=== PATIENT | male | born 1980 | race Caucasian/White ===

== ENCOUNTER 2017-01-21 23:59 | Observation (INO) | payer OTHER ==
[2017-01-22] MEDS ORDERED: Sodium Chloride 0.9% 1000 ML 1,000 ML IV STA ×2 (00:14→01:04)
[2017-01-22] MEDS ORDERED: Phenergan 25 MG INJ IV ONE (00:14)
[2017-01-22] MEDS ORDERED: Hydromorphone 1 mg/ml Ampule IV ONE (00:14)
--- NOTE | 2017-01-22 00:20 | ERPHSYRPT ---
- History of Present Illness Time Seen by Provider: 01/22/17 00:10 Historian: patient Exam Limitations: no limitations Patient Subjective Stated Complaint: pt states he has been having cramping abd pain since 5pm with vomiting and diarrhea since 7pm. states his pain radiates to both sides of his back Triage Nursing Assessment: pt alert and oriented, answers questions approp. pt ambulatory with steady gait noted. respirations nonlabored, denies sob. abd distended. bowel sounds present. Physician History: FOR THE PAST 5 HOURS PT HAS HAD DIFFUSE ABDOMINAL CRAMPING, VOMITING X5 WITHOUT BLOOD, BROWN WATERY DIARRHEA X10, CHILLS AND DIAPHORESIS. PT DENIES CHEST PAIN, SHORTNESS OF AIR, FEVER. Allergies/Adverse Reactions: No Known Drug Allergies Allergy (Unverified 01/22/17 00:22) Home Medications: No Reportable Medications [No Reported Medications] 01/22/17 [History] Hx Tetanus, Diphtheria Vaccination/Date Given: Yes Hx Influenza Vaccination/Date Given: No Hx Pneumococcal Vaccination/Date Given: No Immunizations Up to Date: Yes - Review of Systems Constitutional: Chills, No Fever Respiratory: No Dyspnea Cardiac: No Chest Pain Abdominal/Gastrointestinal: Abdominal Pain, Vomiting, Diarrhea Endocrine: Excessive Sweating All Other Systems: Reviewed and Negative - Past Medical History Pertinent Past Medical History: No - Past Surgical History Past Surgical History: Yes Other Surgical History: growth removed from big toe,. skin graft - Social History Smoking Status: Former smoker Exposure to second hand smoke: No Patient Lives Alone: No - Nursing Vital Signs Nursing Vital Signs: Initial Vital Signs Temperature 97.7 F 01/22/17 00:02 Pulse Rate 90 01/22/17 00:02 Respiratory Rate 18 01/22/17 00:02 Blood Pressure 185/112 01/22/17 00:02 O2 Sat by Pulse Oximetry 97 01/22/17 00:02 Pain Scale Pain Intensity 5 - Physical Exam General Appearance: alert Eye Exam: PERRL/EOMI Ears, Nose, Throat Exam: TMs normal, dry mucous membranes Neck Exam: normal inspection Respiratory Exam: lungs clear Cardiovascular Exam: normal heart sounds Gastrointestinal/Abdomen Exam: normal bowel sounds, tenderness (MILD DIFFUSE ABDOMINAL TENDERNESS) Back Exam: normal range of motion Extremity Exam: normal inspection, No pedal edema Neurologic Exam: alert, cooperative Skin Exam: abrasion (HEALING ABRASION TO MID ANTERIOR ASPECT OF LEFT LEG.) SpO2 Interpretation: normal SpO2: 97 Oxygen Delivery: Room Air - Course Nursing assessment & vital signs reviewed: Yes - CT Exams Abdomen/Pelvis CT Interpretation: Tele-radiologist Report (FINDINGS CONSISTENT WITH COLONIC ILEUS.) Ordered Tests: Active Orders 24 hr Category Date Time Status Clean Catch Urine Specimen STAT Care 01/22/17 00:14 Active IV Insertion STAT Care 01/22/17 00:14 Active ABDOMEN AND PELVIS W/0 CONTRAS [CT] Stat Exams 01/22/17 00:15 Taken AMYLASE Stat Lab 01/22/17 00:15 Completed CBC W DIFF Stat Lab 01/22/17 00:15 Completed CMP Stat Lab 01/22/17 00:15 Completed LIPASE Stat Lab 01/22/17 00:15 Completed MAG [MAGNESIUM] Stat Lab 01/22/17 00:15 Completed Manual Differential NC Stat Lab 01/22/17 00:15 Completed UA W/ MICROSCOPIC Stat Lab 01/22/17 02:00 Completed Urine Triage Profile Stat Lab 01/22/17 02:00 Completed Medication Summary Discontinued Medications Generic Name Dose Route Start Last Admin Trade Name Freq PRN Reason Stop Dose Admin Hydromorphone HCl 1 mg 01/22/17 00:14 01/22/17 00:28 Hydromorphone 1 Mg/Ml Ampule IV 01/22/17 00:15 1 mg STAT ONE Administration Hydromorphone HCl Confirm 01/22/17 00:24 Hydromorphone 1 Mg/Ml Ampule Administered 01/22/17 00:25 Dose 1 mg .ROUTE .STK-MED ONE Sodium Chloride 1,000 mls @ 999 mls/hr 01/22/17 00:14 01/22/17 00:28 Sodium Chloride 0.9% 1000 Ml IV 01/22/17 01:14 999 mls/hr .Q1H1M STA Administration Sodium Chloride Confirm 01/22/17 00:24 Sodium Chloride 0.9% 1000 Ml Administered 01/22/17 00:25 Dose 1,000 mls @ ud .ROUTE .STK-MED ONE Sodium Chloride 1,000 mls @ 999 mls/hr 01/22/17 01:04 01/22/17 01:31 Sodium Chloride 0.9% 1000 Ml IV 01/22/17 02:04 999 mls/hr .Q1H1M STA Administration Magnesium Sulfate/Dextrose 100 mls @ 200 mls/hr 01/22/17 01:35 01/22/17 01:48 Magnesium 1 Gm / 100 Ml D5w IV 01/22/17 02:04 200 mls/hr STAT ONE Administration Magnesium Sulfate/Dextrose Confirm 01/22/17 01:48 Magnesium 1 Gm / 100 Ml D5w Administered 01/22/17 01:49 Dose 100 mls @ ud IV .STK-MED ONE Nitroglycerin 0.4 mg 01/22/17 02:24 01/22/17 02:27 Nitrostat 0.4 Mg (Ed) SL 01/22/17 02:25 0.4 mg STAT ONE Administration Promethazine HCl 12.5 mg 01/22/17 00:14 01/22/17 00:28 Phenergan 25 Mg Inj IV 01/22/17 00:15 12.5 mg STAT ONE Administration Promethazine HCl Confirm 01/22/17 00:23 Phenergan 25 Mg Inj Administered 01/22/17 00:24 Dose 25 mg .ROUTE .STK-MED ONE Lab/Rad Data: Laboratory Result Diagrams 01/22/17 00:15 01/22/17 00:15 Laboratory Results 01/22/17 01/22/17 01/22/17 Range/Units 02:00 02:00 00:15 WBC (4.0-10.5) K/mm3 RBC (4.1-5.6) M/mm3 Hgb (12.5-18.0) gm/dl Hct (42-50) % MCV (78-100) fl MCH (26-32) pg MCHC (32-36) g/dl RDW (11.5-14.0) % Plt Count (150-450) K/mm3 MPV (6-9.5) fl Segmented Neutrophils (36.-66.) % Lymphocytes (Manual) (24-44) % Monocytes (Manual) (0.0-12.0) % Eosinophils (Manual) (0.00-3.0) % Differential Comment Platelet Estimate (NORMAL) Sodium (136-145) mEq/L Potassium (3.5-5.1) mEq/L Chloride (98-107) mEq/L Carbon Dioxide (21-32) mEq/L Anion Gap (5-15) MEQ/L BUN (9-20) mg/dL Creatinine (0.55-1.30) mg/dl Estimated GFR ML/MIN Glucose (70-110) MG/DL Calcium (8.5-10.1) mg/dL Magnesium 1.7 L (1.8-2.4) mg/dL Total Bilirubin (0.2-1.0) mg/dL AST (15-37) U/L ALT (12-78) U/L Alkaline Phosphatase (46-116) U/L Serum Total Protein (6.4-8.2) gm/dL Albumin (3.4-5.0) g/dL Amylase (25-115) U/L Lipase (73-393) U/L Ur Collection Type CCMS Urine Color YELLOW (YELLOW) Urine Appearance CLEAR (CLEAR) Urine pH 5.0 (5-6) Ur Specific [place] 1.025 (1.005-1.025) Urine Protein TRACE (Negative) Urine Ketones NEGATIVE (NEGATIVE) Urine Blood NEGATIVE (0-5) Giuseppe/ul Urine Nitrite NEGATIVE (NEGATIVE) Urine Bilirubin NEGATIVE (NEGATIVE) Urine Urobilinogen NORMAL (0-1) mg/dL Ur Leukocyte Esterase NEGATIVE (NEGATIVE) Urine Microscopic WBC 5-10 (0-5) /HPF Urine Glucose NEGATIVE (NEGATIVE) mg/dL Urine Opiates Level NEG. (NEGATIVE) Ur Methadone NEG. (NEGATIVE) Urine Barbiturates NEG. (NEGATIVE) Ur Phencyclidine (PCP) NEG. (NEGATIVE) Urine Amphetamine NEG. (NEGATIVE) U Benzodiazepine Level NEG. (NEGATIVE) Urine Cocaine NEG. (NEGATIVE) Urine Marijuana (THC) NEG. (NEGATIVE) Specimen Received 01-22-17 0225 01/22/17 01/22/17 Range/Units 00:15 00:15 WBC 14.4 H (4.0-10.5) K/mm3 RBC 5.49 (4.1-5.6) M/mm3 Hgb 15.4 (12.5-18.0) gm/dl Hct 45.1 (42-50) % MCV 82.1 (78-100) fl MCH 28.1 (26-32) pg MCHC 34.1 (32-36) g/dl RDW 13.7 (11.5-14.0) % Plt Count 261 (150-450) K/mm3 MPV 10.2 H (6-9.5) fl Segmented Neutrophils 86 H (36.-66.) % Lymphocytes (Manual) 11 L (24-44) % Monocytes (Manual) 2 (0.0-12.0) % Eosinophils (Manual) 1 (0.00-3.0) % Differential Comment NORMAL Platelet Estimate NORMAL (NORMAL) Sodium 143 (136-145) mEq/L Potassium 3.9 (3.5-5.1) mEq/L Chloride 105 (98-107) mEq/L Carbon Dioxide 25.1 (21-32) mEq/L Anion Gap 16.3 H (5-15) MEQ/L BUN 12 (9-20) mg/dL Creatinine 0.95 (0.55-1.30) mg/dl Estimated GFR > 60 ML/MIN Glucose 145 H (70-110) MG/DL Calcium 9.2 (8.5-10.1) mg/dL Magnesium (1.8-2.4) mg/dL Total Bilirubin 0.50 (0.2-1.0) mg/dL AST 36 (15-37) U/L ALT 60 (12-78) U/L Alkaline Phosphatase 61 (46-116) U/L Serum Total Protein 8.5 H (6.4-8.2) gm/dL Albumin 4.3 (3.4-5.0) g/dL Amylase 28 (25-115) U/L Lipase 84 (73-393) U/L Ur Collection Type Urine Color (YELLOW) Urine Appearance (CLEAR) Urine pH (5-6) Ur Specific [place] (1.005-1.025) Urine Protein (Negative) Urine Ketones (NEGATIVE) Urine Blood (0-5) Giuseppe/ul Urine Nitrite (NEGATIVE) Urine Bilirubin (NEGATIVE) Urine Urobilinogen (0-1) mg/dL Ur Leukocyte Esterase (NEGATIVE) Urine Microscopic WBC (0-5) /HPF Urine Glucose (NEGATIVE) mg/dL Urine Opiates Level (NEGATIVE) Ur Methadone (NEGATIVE) Urine Barbiturates (NEGATIVE) Ur Phencyclidine (PCP) (NEGATIVE) Urine Amphetamine (NEGATIVE) U Benzodiazepine Level (NEGATIVE) Urine Cocaine (NEGATIVE) Urine Marijuana (THC) (NEGATIVE) Specimen Received - Progress Discussed with : Hunter (0253 - OBS) - Departure Time of Disposition: 03:02 Departure Disposition: Home Clinical Impression: ABDOMINAL PAIN, COLONIC ILEUS, ABRASION OF LEFT LEG Condition: Stable Critical Care Time: No [facility] [Primary Care Provider[facility] -
[2017-01-22] MEDS ORDERED: Phenergan 25 MG INJ ONE (00:23)
[2017-01-22] MEDS ORDERED: Sodium Chloride 0.9% 1000 ML 1,000 ML ONE (00:24)
[2017-01-22] MEDS ORDERED: Hydromorphone 1 mg/ml Ampule ONE (00:24)
[2017-01-22 00:27] LABS: Mean Cell Volume 82.1 fl (78-100); Mean Corpuscular Hemoglobin 28.1 pg (26-32); Mean Platelet Volume 10.2 fl (6-9.5); Platelet Count 261 K/mm3 (150-450); Red Blood Count 5.49 M/mm3 (4.1-5.6); Red Cell Distribution Width 13.7 % (11.5-14.0); White Blood Count 14.4 K/mm3 (4.0-10.5)
[2017-01-22 00:52] LABS: ALBUMIN 4.3 g/dL (3.4-5.0); ALKALINE PHOSPHATASE 61 U/L (46-116); ANION GAP 16.3 MEQ/L (5-15); BLOOD UREA NITROGEN 12 mg/dL (9-20); CHLORIDE 105 mEq/L (98-107); Carbon Dioxide 25.1 mEq/L (21-32); Glucose 145 MG/DL (70-110); LIPASE 84 U/L (73-393); Potassium 3.9 mEq/L (3.5-5.1); SGOT/AST 36 U/L (15-37); SGPT/ALT 60 U/L (12-78); SODIUM 143 mEq/L (136-145); Total Protein 8.5 gm/dL (6.4-8.2)
[2017-01-22 01:26] LABS: Eosinophil 1 % (0.00-3.0); Total Cells Counted 100
[2017-01-22 01:27] LABS: Platelet Estimate NORMAL (NORMAL)
[2017-01-22] MEDS ORDERED: Magnesium 1 Gm / 100 Ml D5W*** 100 ML IV ONE ×2 (01:35→01:48)
[2017-01-22] MEDS ORDERED: Nitrostat 0.4 MG (ED) SL ONE ×2 (02:24→03:53)
[2017-01-22 02:25] LABS: ADD URINE CULTURE? NO (NO); Bilirubin NEGATIVE (NEGATIVE); Blood NEGATIVE Ery/ul (0-5); COMPLETE URINE MICROSCOPIC? YES; Collection Type CCMS; Glucose NEGATIVE (NEGATIVE); Leukocyte Esterase NEGATIVE (NEGATIVE)
[2017-01-22] MEDS ORDERED: DILAUDID 2 MG INJECTION IV PRN (03:17)
[2017-01-22] MEDS ORDERED: Phenergan 25 MG INJ IV PRN (03:17)
[2017-01-22] MEDS ORDERED: Zofran 4 MG/2 ML VIAL IV PRN (03:17)
[2017-01-22] MEDS: Sodium Chloride 0.9% 1000 ML 1,000 ML IV SCH ×2 (04:28→14:55)
[2017-01-22 06:06] LABS: Mean Cell Volume 82.7 fl (78-100); Mean Corpuscular Hemoglobin 28.1 pg (26-32); Mean Platelet Volume 10.1 fl (6-9.5); Platelet Count 261 K/mm3 (150-450); Red Blood Count 5.31 M/mm3 (4.1-5.6); Red Cell Distribution Width 13.6 % (11.5-14.0); White Blood Count 16.2 K/mm3 (4.0-10.5)
[2017-01-22 06:27] LABS: ALBUMIN 3.9 g/dL (3.4-5.0); ALKALINE PHOSPHATASE 63 U/L (46-116); ANION GAP 15.6 MEQ/L (5-15); BLOOD UREA NITROGEN 10 mg/dL (9-20); CHLORIDE 106 mEq/L (98-107); Carbon Dioxide 23.9 mEq/L (21-32); Glucose 146 MG/DL (70-110); SGOT/AST 38 U/L (15-37); SGPT/ALT 60 U/L (12-78); SODIUM 142 mEq/L (136-145); Total Protein 7.9 gm/dL (6.4-8.2)
--- NOTE | 2017-01-22 08:15 | HP ---
CHIEF COMPLAINT: Nausea, vomiting, abdominal pain, diarrhea. HISTORY OF PRESENT ILLNESS: The patient is a 36 year-old white male patient normally seen at the [place] presented to the emergency room with the above complaints. He reports he had brown watery diarrhea. He denied blood in the stool. He has had no recent problems otherwise. He does take ranitidine and aspirin for headaches and abdominal pain. PAST MEDICAL/SURGICAL HISTORY: He has no significant medical history otherwise. ALLERGIES: NKDA. PHYSICAL EXAMINATION: His vital signs on admission showed temperature 97.7F, pulse 90, respiratory rate 18, blood pressure 185/112. O2 saturation 97% on room air. HEENT: Normocephalic, atraumatic. He is currently wearing oxygen per nasal cannula. Oropharynx is dry. NECK: Supple without lymphadenopathy, thyromegaly or JVD. CHEST: Clear to auscultation with good air movement bilaterally. HEART: Regular rate and rhythm without murmurs, rubs or gallops. ABDOMEN: Distended and tympanitic with high pitched bowel sounds. No palpable masses were felt. EXTREMITIES: Without clubbing, cyanosis or edema. NEUROLOGIC: The patient is alert and oriented x3. No focal deficits are noted. LAB DATA AND TESTS: Laboratory evaluations thus far show CT scan of the abdomen and pelvis findings consistent with colonic ileus. His urine drug screen was negative. His UA showed specific gravity 1.025 and was essentially normal other than 5 to 10 white blood cells per high power field. His magnesium was 1.7. Metabolic panel showed a glucose nonfasting at 145, BUN 12, creatinine 0.95. Liver enzymes were normal. Amylase and lipase were normal. His white blood cell count was noted to be 14,400 with 0 bands and 86 polys. His hemoglobin was 15.4 and PLT count 261,000. ASSESSMENT: A patient with adynamic ileus. He has been admitted to the hospital for IV fluid hydration, pain control, nausea control. We will swab him for influenza as well and test the stools. We will advance his diet to clear liquids once his abdominal pain resolves and he is feeling better.
[2017-01-22 08:22] LABS: BAND 3 % (0.0-2.0); Platelet Estimate NORMAL (NORMAL); Total Cells Counted 100
[2017-01-22] MEDS: PROTONIX 40 MG IV IV SCH (08:45)
[2017-01-22] MEDS: Pepcid 20 MG PO SCH (08:45)
[2017-01-22] MEDS ORDERED: RANITIDINE HCL 75 MG PO SCH (10:00)
[2017-01-22] MEDS ORDERED: FLUCELVAX QUAD 2017-2018 SYR IM ONE (10:00)
--- NOTE | 2017-01-22 10:26 | XRAY ---
Exam: Supine and upright films of the abdomen from 0600 hrs. on 01/22/2017. Comparison: CT of the abdomen and pelvis without IV contrast from 12:40 AM on 01/22/2017. Indication: 36-year-old male with lower bilateral abdominal/pelvic pain Findings: 2 supine images and one upright image of the upper abdomen were obtained. I see no free intraperitoneal air underneath the hemidiaphragms. No hepatosplenomegaly is seen. There is some prominence of the mid to distal small bowel as well as distention of the cecum, ascending colon, and transverse colon. Abundant descending colon air is seen as well, although this does not appear as distended as the other colon segments. Minimal bowel gas is seen within the distal rectosigmoid colon. I note some air-fluid levels within the visualized colon and small bowel on the upright image. These findings are believed to be due to an ileus. No suspicious abdominal calcifications are seen. There is a slight rotary convexity of the spine toward the right centered at L1-L2. The visualized lung bases appear clear. Impression: 1. Bowel gas findings most suggestive of an ileus affecting the distal small bowel, and majority of the colon excluding the rectosigmoid colon. 2. No free intraperitoneal air is seen. 3. Mild upper lumbar rotary convexity toward the right centered at L1-L2. This could be due to scoliosis or problem with patient positioning.
--- NOTE | 2017-01-22 11:23 | XRAY ---
Exam: CT of the abdomen and pelvis without IV contrast from 01/22/2017. CTDI: 23.68 Comparison: None. Indication: 36-year-old male with generalized abdominal pain, particularly within lower abdomen and pelvis for the past 5 hours, pain has been becoming worse, patient had diarrhea earlier today. No history of prior abdominal surgery. Technique: Non-IV contrast axial images were obtained through the abdomen and pelvis. Reconstructed coronal and sagittal images were created and reviewed. Findings: The visualized lung bases are essentially clear. There is mild occasional motion artifact. Diffuse hepatic steatosis is seen. Incidentally, I believe there is a small hiatal hernia. No intrahepatic biliary duct distention is seen. The gallbladder is distended and reveals no dense calcifications within it. I believe the spleen is mildly enlarged measuring at least 16 cm in greatest craniocaudal dimension on coronal image #92 of series #103. No mass is seen within the spleen. The pancreas and adrenal glands appear unremarkable. The kidneys reveal no hydronephrosis or calculi. The kidneys are of unremarkable size and shape. The abdominal aorta is of normal diameter. No abnormal retroperitoneal lymphadenopathy is seen. There is no free intraperitoneal air. There is protrusion of some intraperitoneal fat into the subcutaneous fat at the level of the umbilicus on axial image #70 of series #2. The stomach and small bowel do not appear dilated. I believe there are a few scattered air-fluid levels within the distal small bowel within the mid and right hemipelvis. Abundant air is seen within mildly dilated cecum, ascending colon, and transverse colon. A lesser amount of air distends the descending colon. Some stool is seen layering within the posterior aspect of the distal descending colon. I also see a few air-fluid levels within the right hemicolon. The rectosigmoid colon does not appear significantly distended. No bowel wall thickening is seen. The appendix appears unremarkable. The urinary bladder is partially distended and appears grossly unremarkable. No enlarged pelvic lymph nodes or free intraperitoneal fluid is seen. Some probable small postinflammatory lymph nodes are seen within each groin. The seminal vesicles and prostate gland appear unremarkable. The skeleton reveals no acute fracture or suspicious bone lesion. There appears to be mild convexity of the spine toward the right centered near the thoracolumbar junction. Correlate clinically regarding a minimal scoliosis. On the sagittal images there is mild anterior vertebral endplate spurring within the lower thoracic spine. I also note slight loss of the anterior vertebral body height of T8, T9, and T10 on sagittal image #42. These minor deformities appear old. Impression: 1. Occasional motion artifact is seen on the CT images. 2. There appears to be a mild ileus with distention of the cecum, ascending colon, and transverse colon primarily, although a lesser amount of air is seen within the descending colon, too. I also note some scattered air-fluid levels within nondilated distal small bowel within the right hemipelvis as well as the right hemicolon. These findings suggest an ileus. 3. No free intraperitoneal air or free intraperitoneal fluid is seen. 4. The appendix is normal. 5. Small hiatal hernia, hepatic steatosis, minimal fat-containing umbilical hernia, and mild splenomegaly are incidentally noted.
[2017-01-23] MEDS: Sodium Chloride 0.9% 1000 ML 1,000 ML IV SCH ×2 (00:15→08:36)
[2017-01-23] MEDS: Pepcid 20 MG PO SCH (08:34)
[2017-01-23] MEDS: PROTONIX 40 MG IV IV SCH (08:34)
[2017-01-23 12:29] VITALS: O2SAT 97
--- NOTE | 2017-01-23 13:47 | PCM.DS ---
Discharge Summary Date of Admission: 01/22/17 03:16 Admitting Physician: BOUBACAR POWERS Primary Care Provider: [facility] Allergies Allergies vancomycin Adverse Reaction (Verified 01/22/17 03:39) Rash Hospital Summary - Hospital Course Hospital Course: Pt admitted with abdominal pain and vomiting, found to have ileus. He iimproved after admission, today tolerated tomato soup, no pain, no nausea. If he tolerates bland diet at supper can d/c home. - Vitals & Intake/Output Vital Signs: Vital Signs Temperature 97.5 F 01/23/17 12:28 Pulse Rate 90 01/23/17 12:28 Respiratory Rate 20 01/23/17 12:28 Blood Pressure 123/71 01/23/17 12:28 O2 Sat by Pulse Oximetry 97 01/23/17 12:28 Oxygen-Last Documented O2 Percentage 2 Liters = 28% Intake & Output: Intake & Output 01/21/17 01/22/17 01/23/17 01/24/17 11:59 11:59 11:59 11:59 Intake Total 0 3164 Output Total 350 Balance -350 3164 Weight 122.47 kg 122.924 kg - Lab Result Diagrams: 01/22/17 05:05 01/22/17 05:05 Lab Results-Last 24 Hrs: Lab Results-Last 24 Hours 01/22/17 Range/Units 12:45 Stool Occult Blood NEGATIVE (Negative) - Procedures and Test Procedures and Tests throughout Hospitalization: Therapy Orders & Screens 01/22/17 04:07 OT Screen per Nursing Assess Comment: Protocol Order Physician Instructions: Greater than 3 points order OT Admission Screening Reason For Exam: Triggered on Admission Diagnosis: abd pain, colonic ileus Open Wound/Cellutlitis/Pressure Ulcers: Yes Acute Fx/ORIF/Change in wt bearing status: No Severe MUSCULOSKELETAL pain: No ADL Dysfunction: No Acute CVA w/Hemiparesis/Hemiplegia: No Decreased Functional Mobility/Strength: No Sprain/Strain: No Acute Post-op Mobility Dysfunction: No Total Points: 5 PT Screen per Nursing Assess ONCE Comment: Protocol Order Physician Instructions: Greater than 3 points order PT Admission Screenin Reason For Exam: Triggered on Admission Diagnosis: abd pain, colonic ileus Open Wound/Cellutlitis/Pressure Ulcers: Yes Acute Fx/ORIF/Change in wt bearing status: No Severe MUSCULOSKELETAL pain: No ADL Dysfunction: No Acute CVA w/Hemiparesis/Hemiplegia: No Decreased Functional Mobility/Strength: No Sprain/Strain: No Acute Post-op Mobility Dysfunction: No Total Points: 5 01/22/17 04:43 Oxygen NASAL CANNULA 3 lpm Comment: Diagnosis: abd pain, colonic ileus Discharge Exam General Appearance: no apparent distress, obese Neurologic Exam: alert, oriented x 3, cooperative Skin Exam: normal color, warm, dry Respiratory Exam: normal breath sounds, lungs clear, No crackles/rales, No rhonchi, No wheezing Cardiovascular Exam: regular rate/rhythm, normal heart sounds, No murmur Gastrointestinal/Abdomen Exam: soft, normal bowel sounds, No tenderness, No distention Extremity Exam: No pedal edema, No swelling Final Diagnosis/Problem List - Final Discharge Diagnosis/Problem (1) Ileus Current Visit: Yes Status: Acute Assessment & Plan: Resolving. If tolerates supper can d/c home this evening. - Discharge Disposition: Home, Self-Care Condition: Stable Prescriptions: Continue Aspirin/Acetaminophen/Caffeine [Excedrin Migraine Caplet] 1 each PO DAILY Ranitidine HCl 0 mg PO DAILY Follow up with: [facility] TIPTON,[facility] [Primary Care Provider] -
[2017-01-23 16:05] VITALS: BP 146/78; PULSE 86
== END 2017-01-23 17:50 | disposition home or self-care (01) ==
LOC: ED 23:59 → MED SURG 01-22 03:16
PROVIDERS: ADMIT Family Medicine; ATTEND Family Medicine
DX: K56.7 Ileus, unspecified (principal)
CPT/HCPCS: 36000; 36415; 74020; 74176; 80053; 80307; 81000; 82150; 82272; 83690; 83735; 85025; 87631; 93268; 94760; 96360; 96361; 96365; 96374; 96375; 99285; G0008; G0378; J1170; J2550; J3475; A9270-GY

== ENCOUNTER 2020-08-26 22:04 | Observation (INO) | payer OTHER ==
[2020-08-26] MEDS ORDERED: Sodium Chloride 0.9% 1000 ML 1,000 ML IV STA (22:30)
[2020-08-26] MEDS ORDERED: Sodium Chloride 0.9% 1000 ML 1,000 ML ONE (22:37)
--- NOTE | 2020-08-26 22:39 | ERPHSYRPT ---
- History of Present Illness Time Seen by Provider: 08/26/20 22:10 Historian: patient Exam Limitations: no limitations Patient Subjective Stated Complaint: pt c/o abd pain this morning and it got worse as the day went on Triage Nursing Assessment: pt had abd pain this morning, thinking he was going to have diarrhea. That never occured. He continued to work and this evening when he went to relax, the abd pain got worse. Pt has hx of ileus and states, "It feels like that". Abd obese, round with hypoactive bs x4 quad, nontender on palpation, pain radiates to back. Physician History: Patient is a 40-year-old male presents to our emergency department with complaints of abdominal pain. Pain started this morning. Patient had a small bowel movement. He went to work pain worsen. Pain described as an ache that is periumbilical. Pain tends to radiate to his back. Patient has history of ileus. Patient states his symptoms are the same. No trauma. No fever. No nausea vomiting or diaphoresis. Symptoms are mild to moderate in intensity. No specific worsening or improving factors. Patient states he is otherwise healthy. He voices no other complaints or concerns at this time. Timing/Duration: today Activities at Onset: none Quality: aching Abdominal Pain Onset Location: periumbilical Pain Radiation: no radiation Severity of Pain-Max: moderate Severity of Pain-Current: mild Modifying Factors: Improves With: nothing Associated Symptoms: denies symptoms Previous symptoms: same symptoms as today Allergies/Adverse Reactions: vancomycin Adverse Reaction (Mild, Verified 08/26/20 22:19) Rash Home Medications: No Reportable Medications [No Reported Medications] 08/26/20 [History] Hx Tetanus, Diphtheria Vaccination/Date Given: Yes Hx Influenza Vaccination/Date Given: No Hx Pneumococcal Vaccination/Date Given: No Immunizations Up to Date: Yes Travel Risk - International Travel Have you traveled outside of the country in past 3 weeks: No - Coronavirus Screening Are you exhibiting any of the following symptoms?: No Close contact with a COVID-19 positive Pt in past 14-21 Days: No - Vaccine Status Have you recieved a Covid-19 vaccination: No - Review of Systems Constitutional: No Symptoms, No Fever, No Chills Eyes: No Symptoms Ears, Nose, & Throat: No Symptoms Respiratory: No Symptoms, No Cough, No Dyspnea Cardiac: No Symptoms, No Chest Pain, No Edema, No Syncope Abdominal/Gastrointestinal: No Symptoms, No Abdominal Pain, No Nausea, No Vomiting, No Diarrhea Genitourinary Symptoms: No Symptoms, No Dysuria Musculoskeletal: No Symptoms, No Back Pain, No Neck Pain Skin: No Symptoms, No Rash Neurological: No Symptoms, No Dizziness, No Focal Weakness, No Sensory Changes Psychological: No Symptoms Endocrine: No Symptoms Hematologic/Lymphatic: No Symptoms Immunological/Allergic: No Symptoms All Other Systems: Reviewed and Negative - Past Medical History Pertinent Past Medical History: No Neurological History: No Pertinent History ENT History: No Pertinent History Cardiac History: No Pertinent History Respiratory History: Sleep Apnea Endocrine Medical History: No Pertinent History Musculoskeletal History: No Pertinent History GI Medical History: Other History: No Pertinent History Psycho-Social History: Attention Deficit Disorder Male Reproductive Disorders: No Pertinent History Other Medical History: PSORIASIS - Past Surgical History Past Surgical History: Yes Neuro Surgical History: No Pertinent History Cardiac: No Pertinent History Respiratory: No Pertinent History Gastrointestinal: No Pertinent History Genitourinary: No Pertinent History Musculoskeletal: No Pertinent History Male Surgical History: No Pertinent History Other Surgical History: growth removed from big toe. skin graft - Social History Smoking Status: Former smoker Exposure to second hand smoke: No Drug Use: none Patient Lives Alone: No - Nursing Vital Signs Nursing Vital Signs: Initial Vital Signs Temperature 99.2 F 08/26/20 22:05 Pulse Rate 89 08/26/20 22:05 Respiratory Rate 20 08/26/20 22:05 Blood Pressure 182/95 08/26/20 22:05 O2 Sat by Pulse Oximetry 96 08/26/20 22:05 Pain Scale Pain Intensity 4 - Physical Exam General Appearance: no apparent distress, alert Eye Exam: PERRL/EOMI, eyes nml inspection Ears, Nose, Throat Exam: normal ENT inspection, pharynx normal, moist mucous membranes Neck Exam: normal inspection, non-tender, supple, full range of motion Respiratory Exam: normal breath sounds, lungs clear, No respiratory distress Cardiovascular Exam: regular rate/rhythm, normal heart sounds Gastrointestinal/Abdomen Exam: soft, distention, other (Abdomen mildly distended. No obvious tenderness. Overlying soft tissue intact.), No tenderness, No mass Back Exam: normal inspection, normal range of motion, No CVA tenderness, No vertebral tenderness Extremity Exam: normal inspection, normal range of motion, pelvis stable Neurologic Exam: alert, oriented x 3, cooperative, normal mood/affect, nml cerebellar function, sensation nml, No motor deficits Skin Exam: normal color, warm, dry Lymphatic Exam: No adenopathy SpO2 Interpretation: normal SpO2: 96 O2 Delivery: Room Air Ordered Tests: Active Orders 24 hr Category Date Time Status EKG-ER Only STAT Care 08/26/20 22:30 Active IV Insertion STAT Care 08/26/20 22:30 Active ABDOMEN AND PELVIS W CONTRAST [CT] Stat Exams 08/26/20 22:30 Taken CBC W DIFF Stat Lab 08/26/20 22:25 Completed CMP Stat Lab 08/26/20 22:25 Completed LIPASE Stat Lab 08/26/20 22:25 Completed Manual Differential NC Stat Lab 08/26/20 22:25 Completed TROPONIN Q3H Lab 08/26/20 22:25 Completed TROPONIN Q3H Lab 08/27/20 01:15 Completed TROPONIN Q3H Lab 08/27/20 04:30 Ordered TROPONIN Q3H Lab 08/27/20 07:30 Ordered TROPONIN Q3H Lab 08/27/20 10:30 Ordered UA W/RFX UR CULTURE Stat Lab 08/26/20 23:59 Completed Transfer Order Routine Transfer 08/27/20 Ordered Medication Summary Discontinued Medications Generic Name Dose Route Start Last Admin Trade Name Freq PRN Reason Stop Dose Admin Sodium Chloride 1,000 mls @ 999 mls/hr 08/26/20 22:30 08/26/20 22:39 Sodium Chloride 0.9% 1000 Ml IV 08/26/20 23:30 999 mls/hr .Q1H1M STA Administration Sodium Chloride Confirm 08/26/20 22:37 Sodium Chloride 0.9% 1000 Ml Administered 08/26/20 22:38 Dose 1,000 mls @ ud .ROUTE .STK-MED ONE Methylprednisolone Sodium Succinate 125 mg 08/27/20 00:42 08/27/20 00:56 Solu-Medrol 125 Mg IV 08/27/20 00:43 125 mg STAT ONE Administration Methylprednisolone Sodium Succinate Confirm 08/27/20 00:54 Solu-Medrol 125 Mg Administered 08/27/20 00:55 Dose 125 mg .ROUTE .STK-MED ONE Morphine Sulfate 4 mg 08/27/20 00:43 08/27/20 00:56 Morphine Sulfate 4 Mg Inj IV 08/27/20 00:44 4 mg STAT ONE Administration Morphine Sulfate Confirm 08/27/20 00:54 Morphine Sulfate 4 Mg Inj Administered 08/27/20 00:55 Dose 4 mg .ROUTE .STK-MED ONE Lab/Rad Data: Laboratory Result Diagrams 08/26/20 22:25 08/26/20 22:25 Laboratory Results 08/27/20 08/27/20 08/26/20 Range/Units 01:15 00:56 23:59 WBC (4.0-10.5) K/mm3 RBC (4.1-5.6) M/mm3 Hgb (12.5-18.0) gm/dl Hct (42-50) % MCV (78-100) fl MCH (26-32) pg MCHC (32-36) g/dl RDW (11.5-14.0) % Plt Count (150-450) K/mm3 MPV (7.5-11.0) fl Segmented Neutrophils (36.-66.) % Lymphocytes (Manual) (24-44) % Monocytes (Manual) (0.0-12.0) % Eosinophils (Manual) (0.00-3.0) % Basophils (Manual) (0.0-1.0) % Platelet Estimate (NORMAL) RBC Morphology Sodium (137-145) mmol/L Potassium (3.5-5.1) mmol/L Chloride (98-107) mmol/L Carbon Dioxide (22-30) mmol/L Anion Gap (5-15) MEQ/L BUN (9-20) mg/dL Creatinine (0.66-1.25) mg/dL Estimated GFR ML/MIN Glucose (74-106) mg/dL Calcium (8.4-10.2) mg/dL Total Bilirubin (0.2-1.3) mg/dL AST (17-59) U/L ALT (0-50) U/L Alkaline Phosphatase (38-126) U/L Troponin I < 0.012 (0.000-0.034) ng/mL Serum Total Protein (6.3-8.2) g/dL Albumin (3.5-5.0) g/dL Lipase (23-300) U/L Urine Color YELLOW (YELLOW) Urine Appearance CLEAR (CLEAR) Urine pH 5.0 (5-6) Ur Specific [place] 1.034 (1.005-1.025) Urine Protein NEGATIVE (Negative) Urine Ketones NEGATIVE (NEGATIVE) Urine Blood NEGATIVE (0-5) Giuseppe/ul Urine Nitrite NEGATIVE (NEGATIVE) Urine Bilirubin NEGATIVE (NEGATIVE) Urine Urobilinogen NEGATIVE (0-1) mg/dL Ur Leukocyte Esterase TRACE (NEGATIVE) Urine WBC (Auto) 6-10 (0-5) /HPF Urine RBC (Auto) NONE (0-2) /HPF U Epithel Cells (Auto) NONE (FEW) /HPF Urine Bacteria (Auto) NONE (NEGATIVE) /HPF Urine Culture Reflexed NO (NO) Urine Glucose NEGATIVE (NEGATIVE) mg/dL Influenza Type A Ag NEGATIVE (NEGATIVE) Influenza Type B Ag NEGATIVE (NEGATIVE) RSV (PCR) NEGATIVE (Negative) SARS-CoV-2 (PCR) NEGATIVE (NEGATIVE) 08/26/20 08/26/20 08/26/20 Range/Units 22:25 22:25 22:25 WBC 9.1 (4.0-10.5) K/mm3 RBC 5.02 (4.1-5.6) M/mm3 Hgb 14.4 (12.5-18.0) gm/dl Hct 41.5 L (42-50) % MCV 82.7 (78-100) fl MCH 28.7 (26-32) pg MCHC 34.7 (32-36) g/dl RDW 13.7 (11.5-14.0) % Plt Count 237 (150-450) K/mm3 MPV 9.9 (7.5-11.0) fl Segmented Neutrophils 62 (36.-66.) % Lymphocytes (Manual) 29 (24-44) % Monocytes (Manual) 5 (0.0-12.0) % Eosinophils (Manual) 3 (0.00-3.0) % Basophils (Manual) 1 (0.0-1.0) % Platelet Estimate NORMAL (NORMAL) RBC Morphology NORMAL Sodium 141 (137-145) mmol/L Potassium 3.8 (3.5-5.1) mmol/L Chloride 107 (98-107) mmol/L Carbon Dioxide 23 (22-30) mmol/L Anion Gap 14.4 (5-15) MEQ/L BUN 14 (9-20) mg/dL Creatinine 0.80 (0.66-1.25) mg/dL Estimated GFR > 60.0 ML/MIN Glucose 96 (74-106) mg/dL Calcium 9.4 (8.4-10.2) mg/dL Total Bilirubin 0.60 (0.2-1.3) mg/dL AST 39 (17-59) U/L ALT 44 (0-50) U/L Alkaline Phosphatase 70 (38-126) U/L Troponin I < 0.012 (0.000-0.034) ng/mL Serum Total Protein 7.8 (6.3-8.2) g/dL Albumin 4.6 (3.5-5.0) g/dL Lipase 57 (23-300) U/L Urine Color (YELLOW) Urine Appearance (CLEAR) Urine pH (5-6) Ur Specific [place] (1.005-1.025) Urine Protein (Negative) Urine Ketones (NEGATIVE) Urine Blood (0-5) Giuseppe/ul Urine Nitrite (NEGATIVE) Urine Bilirubin (NEGATIVE) Urine Urobilinogen (0-1) mg/dL Ur Leukocyte Esterase (NEGATIVE) Urine WBC (Auto) (0-5) /HPF Urine RBC (Auto) (0-2) /HPF U Epithel Cells (Auto) (FEW) /HPF Urine Bacteria (Auto) (NEGATIVE) /HPF Urine Culture Reflexed (NO) Urine Glucose (NEGATIVE) mg/dL Influenza Type A Ag (NEGATIVE) Influenza Type B Ag (NEGATIVE) RSV (PCR) (Negative) SARS-CoV-2 (PCR) (NEGATIVE) - Progress Progress: improved Progress Note: Patient reassessed. Pain improved somewhat not resolved. Case discussed with Dr. Hayes. We administered a dose of Solu-Medrol 125. CT scan reveals inflammatory bowel disease. Covid negative. We will admit patient to ob servation. Patient agrees to admission at [facility] for further evaluation and treatment. 08/27/20 02:21 Discussed with : Wilmer Will see patient in: hospital (observation) Counseled pt/family regarding: lab results, diagnosis, rad results - Departure Departure Disposition: Home Clinical Impression: Hepatic steatosis, Inflammatory bowel disease Condition: Stable Critical Care Time: No Referrals: ERYN HAYES MD [Primary Care Provider] -
[2020-08-26 22:55] LABS: Hematocrit 41.5 % (42-50); Hemoglobin 14.4 gm/dl (12.5-18.0); Mean Cell Volume 82.7 fl (78-100); Mean Corpuscular Hemoglobin 28.7 pg (26-32); Mean Corpuscular Hgb Concent. 34.7 g/dl (32-36); Mean Platelet Volume 9.9 fl (7.5-11.0); Platelet Count 237 K/mm3 (150-450); Red Blood Count 5.02 M/mm3 (4.1-5.6); Red Cell Distribution Width 13.7 % (11.5-14.0); White Blood Count 9.1 K/mm3 (4.0-10.5)
[2020-08-26 23:07] LABS: ALBUMIN 4.6 g/dL (3.5-5.0); ALKALINE PHOSPHATASE 70 U/L (38-126); ANION GAP 14.4 MEQ/L (5-15); BLOOD UREA NITROGEN 14 mg/dL (9-20); CHLORIDE 107 mmol/L (98-107); Calcium 9.4 mg/dL (8.4-10.2); Carbon Dioxide 23 mmol/L (22-30); EST GLOMERULAR FILTRATION RATE > 60.0 ML/MIN; Glucose 96 mg/dL (74-106); LIPASE 57 U/L (23-300); Potassium 3.8 mmol/L (3.5-5.1); SGOT/AST 39 U/L (17-59); SGPT/ALT 44 U/L (0-50); SODIUM 141 mmol/L (137-145); Total Protein 7.8 g/dL (6.3-8.2)
[2020-08-26 23:33] LABS: Basophil 1 % (0.0-1.0); Eosinophil 3 % (0.00-3.0); Lymphocytes 29 % (24-44); Monocyte 5 % (0.0-12.0); Neutrophils 62 % (36.-66.); Platelet Estimate NORMAL (NORMAL); Total Cells Counted 100
[2020-08-27 00:14] LABS: Appearance CLEAR (CLEAR); Bilirubin NEGATIVE (NEGATIVE); Blood NEGATIVE Ery/ul (0-5); Glucose NEGATIVE (NEGATIVE); Ketones NEGATIVE (NEGATIVE); Leukocyte Esterase TRACE (NEGATIVE); Nitrite NEGATIVE (NEGATIVE); Protein,Urine Dip NEGATIVE (Negative); Specific Gravity 1.034 (1.005-1.025); Urobilinogen NEGATIVE mg/dL (0-1)
[2020-08-27] MEDS ORDERED: solu-MEDROL 125 MG IV ONE (00:42)
[2020-08-27] MEDS ORDERED: MORPHINE SULFATE 4 MG INJ IV ONE (00:43)
[2020-08-27] MEDS ORDERED: MORPHINE SULFATE 4 MG INJ ONE (00:54)
[2020-08-27] MEDS ORDERED: solu-MEDROL 125 MG ONE (00:54)
[2020-08-27 02:15] LABS: INFLUENZA A NEGATIVE (NEGATIVE); INFLUENZA B NEGATIVE (NEGATIVE); RESPIRATORY SYNCTIAL VIRUS NEGATIVE (Negative)
[2020-08-27] MEDS ORDERED: MORPHINE SULFATE 2 MG INJ IV PRN (02:30)
[2020-08-27] MEDS ORDERED: Zofran 4 MG/2 ML VIAL IV PRN (02:30)
[2020-08-27] MEDS ORDERED: Sodium Chloride 0.9% 1000 ML 1,000 ML IV SCH (02:30)
[2020-08-27 06:01] LABS: BASOPHIL % 0.3 % (0.0-0.4); Basophil (Absolute #) 0.02 (0-0.4); Eosinophil % 0.4 % (0.00-5.0); Eosinophil (Absolute #) 0.03 (0-0.5); Hematocrit 42.2 % (42-50); Hemoglobin 14.4 gm/dl (12.5-18.0); Lymphocyte (Absolute #) 0.97 (1.0-4.6); Mean Cell Volume 83.2 fl (78-100); Mean Corpuscular Hemoglobin 28.4 pg (26-32); Mean Corpuscular Hgb Concent. 34.1 g/dl (32-36); Monocyte (Absolute #) 0.16 (0.0-1.3); Monocytes % 2.1 % (0.0-12.0); Neutrophil % 84.2 % (36.0-66.0); Platelet Count 227 K/mm3 (150-450); Red Blood Count 5.07 M/mm3 (4.1-5.6); Red Cell Distribution Width 13.8 % (11.5-14.0); White Blood Count 7.5 K/mm3 (4.0-10.5)
[2020-08-27 06:30] LABS: ALBUMIN 4.5 g/dL (3.5-5.0); ALKALINE PHOSPHATASE 69 U/L (38-126); ANION GAP 12.7 MEQ/L (5-15); BLOOD UREA NITROGEN 12 mg/dL (9-20); CHLORIDE 106 mmol/L (98-107); Carbon Dioxide 26 mmol/L (22-30); Creatinine 1 0.68 mg/dL (0.66-1.25); EST GLOMERULAR FILTRATION RATE > 60.0 ML/MIN; Glucose 146 mg/dL (74-106); SGOT/AST 35 U/L (17-59); SGPT/ALT 41 U/L (0-50); SODIUM 141 mmol/L (137-145); Total Protein 7.7 g/dL (6.3-8.2)
--- NOTE | 2020-08-27 08:42 | XRAY ---
Indication: Periumbilical pain. Multiple contiguous images obtained through the abdomen and pelvis using 80 cc Isovue 370 contrast. Comparison: January 22, 2017. Lung bases remain clear of infiltrate and effusion. Heart is not enlarged. There remains small hiatal hernia. Noncontrasted stomach and bowel loops remain nonobstructed with normal appendix. Terminal ileum now demonstrates minimal wall thickening/stranding as seen in Crohn's disease. There is now mild fecal debris in the right hemicolon. No free fluid/air. Stable fatty liver. Remaining liver, gallbladder, pancreas, spleen, adrenal glands, kidneys, ureters, bladder, and aorta appear unremarkable. No pathologic retroperitoneal lymphadenopathy. Osseous structures intact again with mild degenerative changes throughout the thoracolumbar spine. No ventral or inguinal hernias. Impression: 1. Minimal terminal ileum wall thickening/stranding. Rule out Crohn's disease. 2. Stable fatty liver and small hiatal hernia. Comment: Preliminary interpretation was made by [facility]. No critical discrepancy.
[2020-08-27] MEDS ORDERED: MOTRIN 600 MG PO ONE (10:28)
--- NOTE | 2020-08-27 10:30 | PCM.SSS ---
History of Present Illness - Chief Complaint Chief Complaint: inflammatory bowel History of Present Illness: is a 39 year old male who reported to the ER with abdominal pain last night, it was sudden in onset yesterday morning, has resolved since admission. no vomiting, no nausea, no diarrhea, no constipation. he had an ileus in 2017 and reports his symptoms were similar then. he has no family or personal hx of IBD. - Review of Systems Constitutional: No Fever, No Chills Respiratory: No Cough, No Short Of Breath Cardiac: No Chest Pain, No Edema, No Syncope Abdominal/Gastrointestinal: Abdominal Pain, No Nausea, No Vomiting, No Diarrhea Skin: No Rash All Other Systems: Reviewed and Negative Medications & Allergies Home Medications: Home Medication List Ciprofloxacin [Cipro 500 MG] 500 mg PO BID #14 tablet 08/27/20 [Rx] Methylprednisolone Packet [Medrol Dosepack] 4 mg PO UD #1 pack 08/27/20 [Rx] Allergies/Adverse Reactions: Allergies Allergy/AdvReac Type Severity Reaction Status Date / Time vancomycin AdvReac Mild Rash Verified 08/26/20 22:19 - Past Medical History Past Medical History: No Neurological History: No Pertinent History ENT History: No Pertinent History Cardiac History: No Pertinent History Respiratory History: No Pertinent History Endocrine Medical History: No Pertinent History Musculoskelatal History: No Pertinent History GI Medical History: Other History: No Pertinent History Pyscho-Social History: No Pertinent History Male Reproductive Disorders: No Pertinent History Comment: ileus - Past Surgical History Past Surgical History: Yes Neuro Surgical History: No Pertinent History Cardiac History: No Pertinent History Respiratory Surgery: No Pertinent History GI Surgical History: No Pertinent History Genitourinary Surgical Hx: No Pertinent History Musculskeletal Surgical Hx: Other Male Surgical History: No Pertinent History Other Surgical History: skin graft, surgery R big toe - Social History Smoking Status: Former smoker Exposure to second hand smoke: No Alcohol: Rarely Drug Use: none - Physical Exam Vital Signs: Vital Signs - 24 hr Temp Pulse Resp BP Pulse Ox 08/27/20 07:30 97.9 F 73 18 135/68 98 08/27/20 03:39 97 08/27/20 02:54 98 F 78 20 173/99 96 08/27/20 02:30 96 08/27/20 02:25 96 08/27/20 02:00 69 19 142/89 96 08/27/20 01:00 73 18 156/78 96 08/27/20 00:00 76 24 157/79 97 08/26/20 23:05 80 18 154/73 98 08/26/20 22:05 99.2 F 89 20 182/95 96 General Appearance: no apparent distress, alert, obese Neurologic Exam: alert, oriented x 3 Respiratory Exam: normal breath sounds, lungs clear, No respiratory distress Cardiovascular Exam: regular rate/rhythm, normal heart sounds, normal peripheral pulses Gastrointestinal/Abdomen Exam: soft, normal bowel sounds, No tenderness, No mass, No guarding, No rebound Extremity Exam: normal inspection, normal range of motion, pelvis stable Skin Exam: normal color, warm, dry, No rash Results - Labs Lab/Micro Results: Lab Results-Last 24 Hours 08/26/20 08/26/20 08/26/20 Range/Units 22:25 22:25 22:25 WBC 9.1 (4.0-10.5) K/mm3 RBC 5.02 (4.1-5.6) M/mm3 Hgb 14.4 (12.5-18.0) gm/dl Hct 41.5 L (42-50) % MCV 82.7 (78-100) fl MCH 28.7 (26-32) pg MCHC 34.7 (32-36) g/dl RDW 13.7 (11.5-14.0) % Plt Count 237 (150-450) K/mm3 MPV 9.9 (7.5-11.0) fl Gran % (36.0-66.0) % Eos # (Auto) (0-0.5) Absolute Lymphs (auto) (1.0-4.6) Absolute Monos (auto) (0.0-1.3) Lymphocytes % (24.0-44.0) % Monocytes % (0.0-12.0) % Eosinophils % (0.00-5.0) % Basophils % (0.0-0.4) % Absolute Granulocytes (1.4-6.9) Segmented Neutrophils 62 (36.-66.) % Lymphocytes (Manual) 29 (24-44) % Monocytes (Manual) 5 (0.0-12.0) % Eosinophils (Manual) 3 (0.00-3.0) % Basophils (Manual) 1 (0.0-1.0) % Basophils # (0-0.4) Platelet Estimate NORMAL (NORMAL) RBC Morphology NORMAL Sodium 141 (137-145) mmol/L Potassium 3.8 (3.5-5.1) mmol/L Chloride 107 (98-107) mmol/L Carbon Dioxide 23 (22-30) mmol/L Anion Gap 14.4 (5-15) MEQ/L BUN 14 (9-20) mg/dL Creatinine 0.80 (0.66-1.25) mg/dL Estimated GFR > 60.0 ML/MIN Glucose 96 (74-106) mg/dL Calcium 9.4 (8.4-10.2) mg/dL Total Bilirubin 0.60 (0.2-1.3) mg/dL AST 39 (17-59) U/L ALT 44 (0-50) U/L Alkaline Phosphatase 70 (38-126) U/L Troponin I < 0.012 (0.000-0.034) ng/mL Serum Total Protein 7.8 (6.3-8.2) g/dL Albumin 4.6 (3.5-5.0) g/dL Lipase 57 (23-300) U/L Urine Color (YELLOW) Urine Appearance (CLEAR) Urine pH (5-6) Ur Specific [place] (1.005-1.025) Urine Protein (Negative) Urine Ketones (NEGATIVE) Urine Blood (0-5) Giuseppe/ul Urine Nitrite (NEGATIVE) Urine Bilirubin (NEGATIVE) Urine Urobilinogen (0-1) mg/dL Ur Leukocyte Esterase (NEGATIVE) Urine WBC (Auto) (0-5) /HPF Urine RBC (Auto) (0-2) /HPF U Epithel Cells (Auto) (FEW) /HPF Urine Bacteria (Auto) (NEGATIVE) /HPF Urine Culture Reflexed (NO) Urine Glucose (NEGATIVE) mg/dL Influenza Type A Ag (NEGATIVE) Influenza Type B Ag (NEGATIVE) RSV (PCR) (Negative) SARS-CoV-2 (PCR) (NEGATIVE) 08/26/20 08/27/20 08/27/20 Range/Units 23:59 00:56 01:15 WBC (4.0-10.5) K/mm3 RBC (4.1-5.6) M/mm3 Hgb (12.5-18.0) gm/dl Hct (42-50) % MCV (78-100) fl MCH (26-32) pg MCHC (32-36) g/dl RDW (11.5-14.0) % Plt Count (150-450) K/mm3 MPV (7.5-11.0) fl Gran % (36.0-66.0) % Eos # (Auto) (0-0.5) Absolute Lymphs (auto) (1.0-4.6) Absolute Monos (auto) (0.0-1.3) Lymphocytes % (24.0-44.0) % Monocytes % (0.0-12.0) % Eosinophils % (0.00-5.0) % Basophils % (0.0-0.4) % Absolute Granulocytes (1.4-6.9) Segmented Neutrophils (36.-66.) % Lymphocytes (Manual) (24-44) % Monocytes (Manual) (0.0-12.0) % Eosinophils (Manual) (0.00-3.0) % Basophils (Manual) (0.0-1.0) % Basophils # (0-0.4) Platelet Estimate (NORMAL) RBC Morphology Sodium (137-145) mmol/L Potassium (3.5-5.1) mmol/L Chloride (98-107) mmol/L Carbon Dioxide (22-30) mmol/L Anion Gap (5-15) MEQ/L BUN (9-20) mg/dL Creatinine (0.66-1.25) mg/dL Estimated GFR ML/MIN Glucose (74-106) mg/dL Calcium (8.4-10.2) mg/dL Total Bilirubin (0.2-1.3) mg/dL AST (17-59) U/L ALT (0-50) U/L Alkaline Phosphatase (38-126) U/L Troponin I < 0.012 (0.000-0.034) ng/mL Serum Total Protein (6.3-8.2) g/dL Albumin (3.5-5.0) g/dL Lipase (23-300) U/L Urine Color YELLOW (YELLOW) Urine Appearance CLEAR (CLEAR) Urine pH 5.0 (5-6) Ur Specific [place] 1.034 (1.005-1.025) Urine Protein NEGATIVE (Negative) Urine Ketones NEGATIVE (NEGATIVE) Urine Blood NEGATIVE (0-5) Giuseppe/ul Urine Nitrite NEGATIVE (NEGATIVE) Urine Bilirubin NEGATIVE (NEGATIVE) Urine Urobilinogen NEGATIVE (0-1) mg/dL Ur Leukocyte Esterase TRACE (NEGATIVE) Urine WBC (Auto) 6-10 (0-5) /HPF Urine RBC (Auto) NONE (0-2) /HPF U Epithel Cells (Auto) NONE (FEW) /HPF Urine Bacteria (Auto) NONE (NEGATIVE) /HPF Urine Culture Reflexed NO (NO) Urine Glucose NEGATIVE (NEGATIVE) mg/dL Influenza Type A Ag NEGATIVE (NEGATIVE) Influenza Type B Ag NEGATIVE (NEGATIVE) RSV (PCR) NEGATIVE (Negative) SARS-CoV-2 (PCR) NEGATIVE (NEGATIVE) 08/27/20 08/27/20 Range/Units 05:22 05:22 WBC 7.5 (4.0-10.5) K/mm3 RBC 5.07 (4.1-5.6) M/mm3 Hgb 14.4 (12.5-18.0) gm/dl Hct 42.2 (42-50) % MCV 83.2 (78-100) fl MCH 28.4 (26-32) pg MCHC 34.1 (32-36) g/dl RDW 13.8 (11.5-14.0) % Plt Count 227 (150-450) K/mm3 MPV 10.0 (7.5-11.0) fl Gran % 84.2 H (36.0-66.0) % Eos # (Auto) 0.03 (0-0.5) Absolute Lymphs (auto) 0.97 L (1.0-4.6) Absolute Monos (auto) 0.16 (0.0-1.3) Lymphocytes % 13.0 L (24.0-44.0) % Monocytes % 2.1 (0.0-12.0) % Eosinophils % 0.4 (0.00-5.0) % Basophils % 0.3 (0.0-0.4) % Absolute Granulocytes 6.30 (1.4-6.9) Segmented Neutrophils (36.-66.) % Lymphocytes (Manual) (24-44) % Monocytes (Manual) (0.0-12.0) % Eosinophils (Manual) (0.00-3.0) % Basophils (Manual) (0.0-1.0) % Basophils # 0.02 (0-0.4) Platelet Estimate (NORMAL) RBC Morphology Sodium 141 (137-145) mmol/L Potassium 4.0 (3.5-5.1) mmol/L Chloride 106 (98-107) mmol/L Carbon Dioxide 26 (22-30) mmol/L Anion Gap 12.7 (5-15) MEQ/L BUN 12 (9-20) mg/dL Creatinine 0.68 (0.66-1.25) mg/dL Estimated GFR > 60.0 ML/MIN Glucose 146 H (74-106) mg/dL Calcium 9.0 (8.4-10.2) mg/dL Total Bilirubin 0.60 (0.2-1.3) mg/dL AST 35 (17-59) U/L ALT 41 (0-50) U/L Alkaline Phosphatase 69 (38-126) U/L Troponin I (0.000-0.034) ng/mL Serum Total Protein 7.7 (6.3-8.2) g/dL Albumin 4.5 (3.5-5.0) g/dL Lipase (23-300) U/L Urine Color (YELLOW) Urine Appearance (CLEAR) Urine pH (5-6) Ur Specific [place] (1.005-1.025) Urine Protein (Negative) Urine Ketones (NEGATIVE) Urine Blood (0-5) Giuseppe/ul Urine Nitrite (NEGATIVE) Urine Bilirubin (NEGATIVE) Urine Urobilinogen (0-1) mg/dL Ur Leukocyte Esterase (NEGATIVE) Urine WBC (Auto) (0-5) /HPF Urine RBC (Auto) (0-2) /HPF U Epithel Cells (Auto) (FEW) /HPF Urine Bacteria (Auto) (NEGATIVE) /HPF Urine Culture Reflexed (NO) Urine Glucose (NEGATIVE) mg/dL Influenza Type A Ag (NEGATIVE) Influenza Type B Ag (NEGATIVE) RSV (PCR) (Negative) SARS-CoV-2 (PCR) (NEGATIVE) - Radiology Impressions Radiology Exams & Impressions: Radiology Procedures Category Date Time Status ABDOMEN AND PELVIS W CONTRAST [CT] Stat Exams 08/26/20 22:30 Completed - Other Procedures and Tests Respiratory Therapy 08/27/20 03:40 BiPap/CPAP ROUTINE Assessment/Plan (1) Abdominal pain Current Visit: Yes Status: Acute Assessment & Plan: exam is unremarkable, ct suggestive of possible Crohn's but patient history does not seem to support. will feed and if tolerates regular diet home on cipro and medrol ryan, will plan outpatient EGD and colonoscopy for further evaluation Code(s): R10.9 - UNSPECIFIED ABDOMINAL PAIN (2) Ileitis, terminal Current Visit: Yes Status: Acute Assessment & Plan: check esr/crp and IBD antibody panel to further evaluate. will scope as outpatient. Code(s): K50.00 - CROHN'S DISEASE OF SMALL INTESTINE WITHOUT COMPLICATIONS Hospital Summary - Vitals & Intake/Output Vital Signs: Vital Signs Temperature 97.9 F 08/27/20 07:30 Pulse Rate 73 08/27/20 07:30 Respiratory Rate 18 08/27/20 07:30 Blood Pressure 135/68 08/27/20 07:30 O2 Sat by Pulse Oximetry 98 08/27/20 07:30 Intake & Output: Intake & Output 08/24/20 08/25/20 08/26/20 08/27/20 11:59 11:59 11:59 11:59 Intake Total 120 Balance 120 Weight 136 kg - Lab Result Diagrams: 08/27/20 05:22 08/27/20 05:22 Lab Results-Last 24 Hrs: Lab Results-Last 24 Hours 08/26/20 08/26/20 08/26/20 Range/Units 22:25 22:25 22:25 WBC 9.1 (4.0-10.5) K/mm3 RBC 5.02 (4.1-5.6) M/mm3 Hgb 14.4 (12.5-18.0) gm/dl Hct 41.5 L (42-50) % MCV 82.7 (78-100) fl MCH 28.7 (26-32) pg MCHC 34.7 (32-36) g/dl RDW 13.7 (11.5-14.0) % Plt Count 237 (150-450) K/mm3 MPV 9.9 (7.5-11.0) fl Gran % (36.0-66.0) % Eos # (Auto) (0-0.5) Absolute Lymphs (auto) (1.0-4.6) Absolute Monos (auto) (0.0-1.3) Lymphocytes % (24.0-44.0) % Monocytes % (0.0-12.0) % Eosinophils % (0.00-5.0) % Basophils % (0.0-0.4) % Absolute Granulocytes (1.4-6.9) Segmented Neutrophils 62 (36.-66.) % Lymphocytes (Manual) 29 (24-44) % Monocytes (Manual) 5 (0.0-12.0) % Eosinophils (Manual) 3 (0.00-3.0) % Basophils (Manual) 1 (0.0-1.0) % Basophils # (0-0.4) Platelet Estimate NORMAL (NORMAL) RBC Morphology NORMAL Sodium 141 (137-145) mmol/L Potassium 3.8 (3.5-5.1) mmol/L Chloride 107 (98-107) mmol/L Carbon Dioxide 23 (22-30) mmol/L Anion Gap 14.4 (5-15) MEQ/L BUN 14 (9-20) mg/dL Creatinine 0.80 (0.66-1.25) mg/dL Estimated GFR > 60.0 ML/MIN Glucose 96 (74-106) mg/dL Calcium 9.4 (8.4-10.2) mg/dL Total Bilirubin 0.60 (0.2-1.3) mg/dL AST 39 (17-59) U/L ALT 44 (0-50) U/L Alkaline Phosphatase 70 (38-126) U/L Troponin I < 0.012 (0.000-0.034) ng/mL Serum Total Protein 7.8 (6.3-8.2) g/dL Albumin 4.6 (3.5-5.0) g/dL Lipase 57 (23-300) U/L Urine Color (YELLOW) Urine Appearance (CLEAR) Urine pH (5-6) Ur Specific [place] (1.005-1.025) Urine Protein (Negative) Urine Ketones (NEGATIVE) Urine Blood (0-5) Giuseppe/ul Urine Nitrite (NEGATIVE) Urine Bilirubin (NEGATIVE) Urine Urobilinogen (0-1) mg/dL Ur Leukocyte Esterase (NEGATIVE) Urine WBC (Auto) (0-5) /HPF Urine RBC (Auto) (0-2) /HPF U Epithel Cells (Auto) (FEW) /HPF Urine Bacteria (Auto) (NEGATIVE) /HPF Urine Culture Reflexed (NO) Urine Glucose (NEGATIVE) mg/dL Influenza Type A Ag (NEGATIVE) Influenza Type B Ag (NEGATIVE) RSV (PCR) (Negative) SARS-CoV-2 (PCR) (NEGATIVE) 08/26/20 08/27/20 08/27/20 Range/Units 23:59 00:56 01:15 WBC (4.0-10.5) K/mm3 RBC (4.1-5.6) M/mm3 Hgb (12.5-18.0) gm/dl Hct (42-50) % MCV (78-100) fl MCH (26-32) pg MCHC (32-36) g/dl RDW (11.5-14.0) % Plt Count (150-450) K/mm3 MPV (7.5-11.0) fl Gran % (36.0-66.0) % Eos # (Auto) (0-0.5) Absolute Lymphs (auto) (1.0-4.6) Absolute Monos (auto) (0.0-1.3) Lymphocytes % (24.0-44.0) % Monocytes % (0.0-12.0) % Eosinophils % (0.00-5.0) % Basophils % (0.0-0.4) % Absolute Granulocytes (1.4-6.9) Segmented Neutrophils (36.-66.) % Lymphocytes (Manual) (24-44) % Monocytes (Manual) (0.0-12.0) % Eosinophils (Manual) (0.00-3.0) % Basophils (Manual) (0.0-1.0) % Basophils # (0-0.4) Platelet Estimate (NORMAL) RBC Morphology Sodium (137-145) mmol/L Potassium (3.5-5.1) mmol/L Chloride (98-107) mmol/L Carbon Dioxide (22-30) mmol/L Anion Gap (5-15) MEQ/L BUN (9-20) mg/dL Creatinine (0.66-1.25) mg/dL Estimated GFR ML/MIN Glucose (74-106) mg/dL Calcium (8.4-10.2) mg/dL Total Bilirubin (0.2-1.3) mg/dL AST (17-59) U/L ALT (0-50) U/L Alkaline Phosphatase (38-126) U/L Troponin I < 0.012 (0.000-0.034) ng/mL Serum Total Protein (6.3-8.2) g/dL Albumin (3.5-5.0) g/dL Lipase (23-300) U/L Urine Color YELLOW (YELLOW) Urine Appearance CLEAR (CLEAR) Urine pH 5.0 (5-6) Ur Specific [place] 1.034 (1.005-1.025) Urine Protein NEGATIVE (Negative) Urine Ketones NEGATIVE (NEGATIVE) Urine Blood NEGATIVE (0-5) Giuseppe/ul Urine Nitrite NEGATIVE (NEGATIVE) Urine Bilirubin NEGATIVE (NEGATIVE) Urine Urobilinogen NEGATIVE (0-1) mg/dL Ur Leukocyte Esterase TRACE (NEGATIVE) Urine WBC (Auto) 6-10 (0-5) /HPF Urine RBC (Auto) NONE (0-2) /HPF U Epithel Cells (Auto) NONE (FEW) /HPF Urine Bacteria (Auto) NONE (NEGATIVE) /HPF Urine Culture Reflexed NO (NO) Urine Glucose NEGATIVE (NEGATIVE) mg/dL Influenza Type A Ag NEGATIVE (NEGATIVE) Influenza Type B Ag NEGATIVE (NEGATIVE) RSV (PCR) NEGATIVE (Negative) SARS-CoV-2 (PCR) NEGATIVE (NEGATIVE) 08/27/20 08/27/20 Range/Units 05:22 05:22 WBC 7.5 (4.0-10.5) K/mm3 RBC 5.07 (4.1-5.6) M/mm3 Hgb 14.4 (12.5-18.0) gm/dl Hct 42.2 (42-50) % MCV 83.2 (78-100) fl MCH 28.4 (26-32) pg MCHC 34.1 (32-36) g/dl RDW 13.8 (11.5-14.0) % Plt Count 227 (150-450) K/mm3 MPV 10.0 (7.5-11.0) fl Gran % 84.2 H (36.0-66.0) % Eos # (Auto) 0.03 (0-0.5) Absolute Lymphs (auto) 0.97 L (1.0-4.6) Absolute Monos (auto) 0.16 (0.0-1.3) Lymphocytes % 13.0 L (24.0-44.0) % Monocytes % 2.1 (0.0-12.0) % Eosinophils % 0.4 (0.00-5.0) % Basophils % 0.3 (0.0-0.4) % Absolute Granulocytes 6.30 (1.4-6.9) Segmented Neutrophils (36.-66.) % Lymphocytes (Manual) (24-44) % Monocytes (Manual) (0.0-12.0) % Eosinophils (Manual) (0.00-3.0) % Basophils (Manual) (0.0-1.0) % Basophils # 0.02 (0-0.4) Platelet Estimate (NORMAL) RBC Morphology Sodium 141 (137-145) mmol/L Potassium 4.0 (3.5-5.1) mmol/L Chloride 106 (98-107) mmol/L Carbon Dioxide 26 (22-30) mmol/L Anion Gap 12.7 (5-15) MEQ/L BUN 12 (9-20) mg/dL Creatinine 0.68 (0.66-1.25) mg/dL Estimated GFR > 60.0 ML/MIN Glucose 146 H (74-106) mg/dL Calcium 9.0 (8.4-10.2) mg/dL Total Bilirubin 0.60 (0.2-1.3) mg/dL AST 35 (17-59) U/L ALT 41 (0-50) U/L Alkaline Phosphatase 69 (38-126) U/L Troponin I (0.000-0.034) ng/mL Serum Total Protein 7.7 (6.3-8.2) g/dL Albumin 4.5 (3.5-5.0) g/dL Lipase (23-300) U/L Urine Color (YELLOW) Urine Appearance (CLEAR) Urine pH (5-6) Ur Specific [place] (1.005-1.025) Urine Protein (Negative) Urine Ketones (NEGATIVE) Urine Blood (0-5) Giuseppe/ul Urine Nitrite (NEGATIVE) Urine Bilirubin (NEGATIVE) Urine Urobilinogen (0-1) mg/dL Ur Leukocyte Esterase (NEGATIVE) Urine WBC (Auto) (0-5) /HPF Urine RBC (Auto) (0-2) /HPF U Epithel Cells (Auto) (FEW) /HPF Urine Bacteria (Auto) (NEGATIVE) /HPF Urine Culture Reflexed (NO) Urine Glucose (NEGATIVE) mg/dL Influenza Type A Ag (NEGATIVE) Influenza Type B Ag (NEGATIVE) RSV (PCR) (Negative) SARS-CoV-2 (PCR) (NEGATIVE) - Radiology Exams Ordered Rad Exams-Entire Visit: Radiology Procedures Category Date Time Status ABDOMEN AND PELVIS W CONTRAST [CT] Stat Exams 08/26/20 22:30 Completed - Procedures and Test Procedures and Tests throughout Hospitalization: Therapy Orders & Screens 08/27/20 03:40 BiPap/CPAP ROUTINE Comment: [id number] Diagnosis: inflammatory bowel - Discharge Disposition: Home, Self-Care Condition: Stable Prescriptions: New Ciprofloxacin [Cipro 500 MG] 500 mg PO BID #14 tablet Methylprednisolone Packet [Medrol Dosepack] 4 mg PO UD #1 pack Follow up with: ERYN HAYES MD [Primary Care Provider] - 1 Week
[2020-08-27 12:25] VITALS: BP 139/79; PULSE 71; O2SAT 96
== END 2020-08-27 13:30 | disposition home or self-care (01) ==
LOC: ED 22:04 → MED SURG 08-27 02:25
PROVIDERS: ADMIT Family Medicine; ATTEND Family Medicine
DX: R10.33 Periumbilical pain (principal); K50.00 Crohn's disease of small intestine without complications; Z79.899 Other long term (current) drug therapy; Z20.828 Contact with and (suspected) exposure to other viral communicable diseases; G47.30 Sleep apnea, unspecified
CPT/HCPCS: 0241U; 36000; 36415; 74177; 80053; 81001; 83520; 83690; 84484; 85025; 85652; 86140; 93005; 93268; 94660; 94760; 96374; 96375; 99285; G0378; J2270; J2930; A9270-GY

== ENCOUNTER 2020-09-01 19:37 | Emergency (ER) | payer OTHER ==
[2020-09-01 20:07] VITALS: O2SAT 97
[2020-09-01] MEDS ORDERED: ARZOL Silver Nitrate Applicator TP ONE (20:12)
--- NOTE | 2020-09-01 20:20 | ERPHSYRPT ---
- History of Present Illness Time Seen by Provider: 09/01/20 19:43 Source: patient Exam Limitations: no limitations Patient Subjective Stated Complaint: pt states "I was cutting up chicken and the knife slipped and cut my finger." Triage Nursing Assessment: pt ambulated into the er; pt is axo x4; c/o laceration to left index finger; pt denies pain. minimal bleeding present; laceration measures 0.25 cm; strong pulses to left radial; good cap refill to left index; hypertensive Physician History: 39 years old right-handed dominant male presented in the ER with chief complaint of left index fingertip superficial cut while using his knife which slipped prior to arrival. Complaining of moderate intensity sharp continuous pain without any significant aggravating or relieving factors. Up-to-date with immunizations/tetanus. Occurred: just prior to arrival Method of Injury: incised Quality: constant, sharpness Severity of Pain-Max: moderate Severity of Pain-Current: moderate Extremities Pain Location: 2nd finger: left (Fingertip) Modifying Factors: Improves With: nothing Associated Symptoms: none Allergies/Adverse Reactions: vancomycin Adverse Reaction (Mild, Verified 09/01/20 20:00) Rash Home Medications: No Reportable Medications [No Reported Medications] 09/01/20 [History] Hx Tetanus, Diphtheria Vaccination/Date Given: Yes Hx Influenza Vaccination/Date Given: No Hx Pneumococcal Vaccination/Date Given: No Travel Risk - International Travel Have you traveled outside of the country in past 3 weeks: No - Coronavirus Screening Are you exhibiting any of the following symptoms?: No Close contact with a COVID-19 positive Pt in past 14-21 Days: No - Vaccine Status Have you recieved a Covid-19 vaccination: No - Review of Systems Constitutional: No Symptoms Respiratory: No Symptoms Cardiac: No Symptoms Abdominal/Gastrointestinal: No Symptoms Musculoskeletal: Injury Skin: No Symptoms Neurological: No Symptoms Psychological: No Symptoms Endocrine: No Symptoms - Past Medical History Pertinent Past Medical History: No Neurological History: No Pertinent History ENT History: No Pertinent History Cardiac History: No Pertinent History Respiratory History: No Pertinent History Endocrine Medical History: No Pertinent History Musculoskeletal History: No Pertinent History GI Medical History: Other History: No Pertinent History Psycho-Social History: No Pertinent History Male Reproductive Disorders: No Pertinent History Other Medical History: ileus - Past Surgical History Past Surgical History: Yes Neuro Surgical History: No Pertinent History Cardiac: No Pertinent History Respiratory: No Pertinent History Gastrointestinal: No Pertinent History Genitourinary: No Pertinent History Musculoskeletal: Other Male Surgical History: No Pertinent History Other Surgical History: skin graft, surgery R big toe - Social History Smoking Status: Former smoker Exposure to second hand smoke: No Drug Use: none Patient Lives Alone: No - Nursing Vital Signs Nursing Vital Signs: Initial Vital Signs Temperature 98.5 F 09/01/20 20:01 Pulse Rate 79 09/01/20 20:01 Respiratory Rate 22 09/01/20 20:01 Blood Pressure 160/98 09/01/20 20:01 O2 Sat by Pulse Oximetry 97 09/01/20 20:01 Pain Scale Pain Intensity 0 - Physical Exam General Appearance: no apparent distress, alert Neck Exam: normal inspection, full range of motion Cardiovascular/Respiratory Exam: normal breath sounds, regular rate/rhythm Hand Exam: normal ROM, laceration (Superficial avulsion left index fingertip with missing chunk of tissue. Slow oozing. No injury to the nail.) Neuro/Tendon Exam: normal sensation, normal motor functions Mental Status Exam: alert, oriented x 3, cooperative Skin Exam: normal color SpO2 Interpretation: normal SpO2: 97 O2 Delivery: Room Air Ordered Tests: Medication Summary Discontinued Medications Generic Name Dose Route Start Last Admin Trade Name Kennedyq PRN Reason Stop Dose Admin Silver Nitrate Confirm 09/01/20 20:12 Arzol Silver Nitrate Applicator Administered 09/01/20 20:13 Dose 3 pkt TP .STK-MED ONE - Progress Progress: improved Progress Note: 09/01/20 20:18 Has missing chunk of tissue cannot be sutured or glued. After informed consent silver nitrate stick cauterization data and hemostasis achieved. It will heal on its own. Recommended outpatient follow-up. Counseled pt/family regarding: diagnosis, need for follow-up - Departure Departure Disposition: Home Clinical Impression: Avulsion of fingertip Qualifiers: Encounter type: initial encounter Qualified Code(s): S61.209A - Unspecified open wound of unspecified finger without damage to nail, initial encounter Condition: Stable Critical Care Time: No Referrals: ERYN HAYES MD [Primary Care Provider] - Follow Up with PCP/3 days Additional Instructions: Use Tylenol/ibuprofen as needed for pain. Keep it elevated. Apply ice. In case if it restarts bleeding, apply firm pressure for 5 minutes. If does not stop bleeding return to ER. Also watch for signs of infection like redness swelling pain or difficulty movements of finger and follow-up with primary care or ER.
[2020-09-01 20:51] VITALS: BP 159/85; PULSE 74
== END 2020-09-01 20:50 | disposition home or self-care (01) ==
LOC: ED 19:37
DX: S61.209A Unspecified open wound of unspecified finger without damage to nail, initial encounter (principal); W26.0XXA Contact with knife, initial encounter; Y93.G3 Activity, cooking and baking; Y92.9 Unspecified place or not applicable
CPT/HCPCS: 99283; A9270-GY

== ENCOUNTER 2021-05-18 11:09 | Emergency (ER) | payer OTHER ==
--- NOTE | 2021-05-18 12:06 | ERPHSYRPT ---
- History of Present Illness Time Seen by Provider: 05/18/21 11:30 Source: patient Exam Limitations: no limitations Patient Subjective Stated Complaint: Pt's right foot has been hurting for a couple of weeks and last night he tripped and now his foot is really hurting, it hurts on the front of the heel going towards the arch Triage Nursing Assessment: Pt drove self to the ER, hypertensive, rates pain while sitting as a 2 and when walking as an 8, states that he has a high pain tolerance and so pain medicine doesn't touch him very well so he has to take a lot to handle his pain so he took 1600mg of IBU about 1.5 hours ago pulses normal, doesn't appear to be in any distress Physician History: Patient is a 40-year-old male who presents with a complaint of pain in the right foot. He actually been having pain in the foot for 2 weeks along the bottom posteriorly towards the heel and then trip last night on a rough spot in the lawn and has had increased pain since. He denies any other specific injury or history related to foot pain. Method of Injury: twisted Occurred: yesterday Quality: aching, throbbing Severity of Pain-Max: moderate Severity of Pain-Current: moderate Lower Extremities Pain: foot: right (Neurovascular tendon are intact there is tenderness over the plantar surface of the foot especially towards the calcaneus) Modifying Factors: Improves With: movement, other (Weightbearing) Allergies/Adverse Reactions: vancomycin Adverse Reaction (Mild, Verified 05/18/21 11:31) Rash Hx Tetanus, Diphtheria Vaccination/Date Given: Yes Hx Influenza Vaccination/Date Given: No Hx Pneumococcal Vaccination/Date Given: No Travel Risk - International Travel Have you traveled outside of the country in past 3 weeks: No - Coronavirus Screening Are you exhibiting any of the following symptoms?: No - Vaccine Status Have you recieved a Covid-19 vaccination: No - Review of Systems Constitutional: No Fever, No Chills Eyes: No Symptoms Ears, Nose, & Throat: No Symptoms Respiratory: No Cough, No Dyspnea Cardiac: No Chest Pain, No Edema, No Syncope Abdominal/Gastrointestinal: No Abdominal Pain, No Nausea, No Vomiting, No Diarrhea Genitourinary Symptoms: No Dysuria Musculoskeletal: Injury, Joint Pain, No Back Pain, No Neck Pain Skin: No Rash Neurological: No Dizziness, No Focal Weakness, No Sensory Changes Psychological: No Symptoms Endocrine: No Symptoms All Other Systems: Reviewed and Negative - Past Medical History Pertinent Past Medical History: No Neurological History: No Pertinent History ENT History: No Pertinent History Cardiac History: No Pertinent History Respiratory History: No Pertinent History Endocrine Medical History: No Pertinent History Musculoskeletal History: No Pertinent History GI Medical History: Other History: No Pertinent History Psycho-Social History: No Pertinent History Male Reproductive Disorders: No Pertinent History Other Medical History: ileus - Past Surgical History Past Surgical History: Yes Neuro Surgical History: No Pertinent History Cardiac: No Pertinent History Respiratory: No Pertinent History Gastrointestinal: No Pertinent History Genitourinary: No Pertinent History Musculoskeletal: Other Male Surgical History: No Pertinent History Other Surgical History: skin graft, surgery R big toe - Social History Smoking Status: Former smoker Exposure to second hand smoke: No Drug Use: none Patient Lives Alone: Yes - Nursing Vital Signs Nursing Vital Signs: Initial Vital Signs Temperature 98.8 F 05/18/21 11:23 Pulse Rate 73 05/18/21 11:23 Blood Pressure 198/110 05/18/21 11:23 O2 Sat by Pulse Oximetry 98 05/18/21 11:23 Pain Scale Pain Intensity 2 - Physical Exam General Appearance: no apparent distress, alert Eyes, Ears, Nose, Throat Exam: moist mucous membranes Neck Exam: non-tender, supple Cardiovascular/Respiratory Exam: chest non-tender, normal breath sounds, regular rate/rhythm, no respiratory distress Gastrointestinal/Abdominal Exam: non-tender, guarding Back Exam: normal inspection, No vertebral tenderness Hips Exam: bilateral: non-tender, normal inspection, normal range of motion Legs Exam: bilateral leg: non-tender, normal inspection, normal range of motion Knees Exam: bilateral knee: non-tender, normal inspection, normal range of motion Ankle Exam: bilateral ankle: non-tender, normal inspection, normal range of motion Foot Exam: right foot: bone tenderness, limited range of motion, pain, soft tissue tenderness, swelling Neuro/Tendon Exam: normal sensation, normal motor functions Mental Status Exam: alert, oriented x 3, cooperative Skin Exam: normal color, warm, dry SpO2 Interpretation: normal SpO2: 98 O2 Delivery: Room Air - Course Nursing assessment & vital signs reviewed: Yes - Radiology Exams Foot X-ray Interpretation: Reviewed by me, Other (X-ray of the right foot shows calcaneal spur) Ordered Tests: Active Orders 24 hr Category Date Time Status FOOT (MINIMUM 3 VIEWS) Stat Exams 05/18/21 11:30 Taken CBC W DIFF Stat Lab 05/18/21 11:55 Completed Uric Acid Stat Lab 05/18/21 11:55 Completed Lab/Rad Data: Laboratory Result Diagrams 05/18/21 11:55 Laboratory Results 05/18/21 05/18/21 Range/Units 11:55 11:55 WBC 7.8 (4.0-10.5) K/mm3 RBC 5.11 (4.1-5.6) M/mm3 Hgb 14.3 (12.5-18.0) gm/dl Hct 42.4 (42-50) % MCV 83.0 (78-100) fl MCH 28.0 (26-32) pg MCHC 33.7 (32-36) g/dl RDW 14.3 H (11.5-14.0) % Plt Count 225 (150-450) K/mm3 MPV 9.9 (7.5-11.0) fl Gran % 59.9 (36.0-66.0) % Eos # (Auto) 0.35 (0-0.5) Absolute Lymphs (auto) 1.88 (1.0-4.6) Absolute Monos (auto) 0.84 (0.0-1.3) Lymphocytes % 24.3 (24.0-44.0) % Monocytes % 10.8 (0.0-12.0) % Eosinophils % 4.5 (0.00-5.0) % Basophils % 0.5 (0.0-0.4) % Absolute Granulocytes 4.64 (1.4-6.9) Basophils # 0.04 (0-0.4) Uric Acid 7.9 H (3.5-7.2) mg/dL - Progress Progress: unchanged - Departure Departure Disposition: Home Clinical Impression: Acute gout Condition: Stable Critical Care Time: No Referrals: ERYN HAYES MD [Primary Care Provider] - Follow up/PCP as directed Instructions: Gout (DC) Prescriptions: Prednisone 20 mg [Deltasone 20 mg] 20 mg PO TID 5 Days #15 tablet
[2021-05-18 12:16] LABS: Absolute Neutrophil Ct (ANC) 4.64 (1.4-6.9); Basophil (Absolute #) 0.04 (0-0.4); Eosinophil % 4.5 % (0.00-5.0); Eosinophil (Absolute #) 0.35 (0-0.5); Hematocrit 42.4 % (42-50); Hemoglobin 14.3 gm/dl (12.5-18.0); Lymphocyte (Absolute #) 1.88 (1.0-4.6); Lymphocytes % 24.3 % (24.0-44.0); Mean Corpuscular Hgb Concent. 33.7 g/dl (32-36); Mean Platelet Volume 9.9 fl (7.5-11.0); Monocyte (Absolute #) 0.84 (0.0-1.3); Monocytes % 10.8 % (0.0-12.0); Neutrophil % 59.9 % (36.0-66.0); Platelet Count 225 K/mm3 (150-450); Red Blood Count 5.11 M/mm3 (4.1-5.6); Red Cell Distribution Width 14.3 % (11.5-14.0); White Blood Count 7.8 K/mm3 (4.0-10.5)
[2021-05-18 12:18] VITALS: BP 193/109; PULSE 71
[2021-05-18 12:35] VITALS: O2SAT 98
[2021-05-18] MEDS ORDERED: solu-MEDROL 125 MG, Sterile H2O 10 ml 2 ML IM STA ×2 (12:35)
[2021-05-18] MEDS ORDERED: Sterile H2O 10 ml IJ ONE (12:44)
[2021-05-18] MEDS ORDERED: solu-MEDROL ONE (12:44)
[2021-05-18 15:25] LABS: Slide Review 1 YES
--- NOTE | 2021-05-18 19:05 | XRAY ---
Indication: Medial foot pain following injury. Comparison: None 3 nonweightbearing views right foot demonstrates small posterior/plantar heel spurs and mild 1st IP degenerative changes. No other bony, articular, or soft tissue abnormalities.
== END 2021-05-18 13:11 | disposition home or self-care (01) ==
LOC: ED 11:09
DX: M10.9 Gout, unspecified (principal); M79.671 Pain in right foot; W22.8XXA Striking against or struck by other objects, initial encounter; Y92.007 Garden or yard of unspecified non-institutional (private) residence as the place of occurrence of the external cause; Z79.52 Long term (current) use of systemic steroids
CPT/HCPCS: 36415; 73630; 84550; 85025; 86140; 96372; 99284; J2930

== ENCOUNTER 2021-12-06 02:43 | Emergency (ER) | payer OTHER ==
[2021-12-06 03:34] LABS: Group A Strep NOT DETECTED (NEGATIVE)
[2021-12-06] MEDS ORDERED: TYLENOL 325 MG PO STA (03:39)
[2021-12-06] MEDS ORDERED: TYLENOL 325 MG ONE (03:42)
[2021-12-06 03:45] LABS: INFLUENZA A NEGATIVE (NEGATIVE); INFLUENZA B NEGATIVE (NEGATIVE); RESPIRATORY SYNCTIAL VIRUS NEGATIVE (Negative)
[2021-12-06 03:49] LABS: SARS-CoV-2 Xpert Express POSITIVE (NEGATIVE)
[2021-12-06 04:04] VITALS: BP 154/68
--- NOTE | 2021-12-06 04:46 | ERPHSYRPT ---
- History of Present Illness Time Seen by Provider: 12/06/21 03:20 Source: patient Exam Limitations: no limitations Patient Subjective Stated Complaint: pt states he has had a sore throat, fever, cough, and headache today. Triage Nursing Assessment: pt alert and oriented. answers questions approp. pt ambulatory with steady gait noted. respirations nonlabored. skin warm and dry. redness to throat noted. Physician History: This is a 41-year-old white male who has had fever cough and a headache as well as body aches that onset within the last 24 hours. He has no known exposures to individuals similar symptoms or with COVID-19 infection. Patient denies chest pain. He denies shortness of breath. He has no abdominal pain and he has had no vomiting or diarrhea symptoms. Patient drove himself into the emergency d epartment Timing/Duration: today Cough Quality/Degree: moderate, dry cough Possible Cause: no prior episodes Modifying Factors: Improves With: coughing Associated Symptoms: fever, cough, sore throat, No chest pain/soreness, No shortness of breath Allergies/Adverse Reactions: vancomycin Adverse Reaction (Mild, Verified 12/06/21 02:53) Rash Hx Tetanus, Diphtheria Vaccination/Date Given: Yes Hx Influenza Vaccination/Date Given: No Hx Pneumococcal Vaccination/Date Given: No Immunizations Up to Date: Yes Travel Risk - International Travel Have you traveled outside of the country in past 3 weeks: No - Coronavirus Screening Are you exhibiting any of the following symptoms?: Yes Symptoms: Fever, Cough: New Onset, Headaches/Body Aches/Fatigue Close contact with a COVID-19 positive Pt in past 14-21 Days: No - Vaccine Status Have you recieved a Covid-19 vaccination: No - Review of Systems Constitutional: Fever Eyes: No Symptoms Ears, Nose, & Throat: Throat Pain Respiratory: Cough Cardiac: No Symptoms, No Chest Pain Abdominal/Gastrointestinal: No Symptoms Genitourinary Symptoms: No Symptoms Musculoskeletal: Arthralgias, Myalgias Skin: No Symptoms Neurological: Headache Psychological: No Symptoms Endocrine: No Symptoms Hematologic/Lymphatic: No Symptoms Immunological/Allergic: No Symptoms All Other Systems: Reviewed and Negative - Past Medical History Pertinent Past Medical History: No Neurological History: No Pertinent History ENT History: No Pertinent History Cardiac History: No Pertinent History Respiratory History: No Pertinent History Endocrine Medical History: No Pertinent History Musculoskeletal History: No Pertinent History GI Medical History: Other History: No Pertinent History Psycho-Social History: No Pertinent History Male Reproductive Disorders: No Pertinent History Other Medical History: ileus - Past Surgical History Past Surgical History: Yes Neuro Surgical History: No Pertinent History Cardiac: No Pertinent History Respiratory: No Pertinent History Gastrointestinal: No Pertinent History Genitourinary: No Pertinent History Musculoskeletal: Other Male Surgical History: No Pertinent History Other Surgical History: skin graft, surgery R big toe - Social History Smoking Status: Former smoker Exposure to second hand smoke: No Drug Use: none Patient Lives Alone: Yes - Nursing Vital Signs Nursing Vital Signs: Initial Vital Signs Temperature 100.2 F 12/06/21 02:54 Pulse Rate 94 H 12/06/21 02:54 Respiratory Rate 18 12/06/21 02:54 Blood Pressure 194/111 12/06/21 02:54 O2 Sat by Pulse Oximetry 97 12/06/21 02:54 Pain Scale Pain Intensity 4 - Physical Exam General Appearance: no apparent distress, alert, obese Eye Exam: PERRL/EOMI, eyes nml inspection Ears, Nose, Throat Exam: normal ENT inspection, moist mucous membranes Neck Exam: normal inspection, non-tender, supple, full range of motion Respiratory Exam: normal breath sounds, lungs clear, airway intact, No chest tenderness, No respiratory distress Cardiovascular Exam: regular rate/rhythm, normal heart sounds, normal peripheral pulses Gastrointestinal/Abdomen Exam: soft, normal bowel sounds, No tenderness Rectal Exam: not done Back Exam: normal inspection, normal range of motion, No CVA tenderness, No vertebral tenderness Extremity Exam: normal inspection, normal range of motion, pelvis stable Neurologic Exam: alert, oriented x 3, cooperative, 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 as tested, normal mood/affect, nml cerebellar function, nml station & gait, sensation nml Skin Exam: normal color, warm, dry Lymphatic Exam: No adenopathy SpO2 Interpretation: normal SpO2: 98 O2 Delivery: Room Air - Course Nursing assessment & vital signs reviewed: Yes Ordered Tests: Medication Summary Discontinued Medications Generic Name Dose Route Start Last Admin Trade Name Freq PRN Reason Stop Dose Admin Acetaminophen 975 mg 12/06/21 03:39 12/06/21 03:42 Acetaminophen 325 Mg Tablet PO 12/06/21 03:40 975 mg STAT STA Administration Acetaminophen Confirm 12/06/21 03:42 Acetaminophen 325 Mg Tablet Administered 12/06/21 03:43 Dose 975 mg .ROUTE .STK-MED ONE Lab/Rad Data: Laboratory Results 12/06/21 Range/Units 03:06 Influenza Type A Ag NEGATIVE (NEGATIVE) Influenza Type B Ag NEGATIVE (NEGATIVE) RSV (PCR) NEGATIVE (Negative) SARS-CoV-2 (PCR) POSITIVE A (NEGATIVE) Group A Strep Antibody NOT DETECTED (NEGATIVE) - Progress Progress: improved Air Movement: good Blood Culture(s) Obtained: No Antibiotics given: No Counseled pt/family regarding: lab results, diagnosis, need for follow-up - Departure Departure Disposition: Home Clinical Impression: COVID-19 virus infection Condition: Stable Critical Care Time: No Referrals: ERYN HAYES MD [Primary Care Provider] - Follow up/PCP as directed Additional Instructions: Drink plenty of fluids. May add ibuprofen 600 mg with food 3 times a day for fever control. Quarantine yourself per the policies of your employer. Forms: Work/School Release Form Prescriptions: Hydrocodone/Acetaminophen [Hydrocodone-Acetamn 7.5-325/15] 10 ml PO Q8H PRN PRN #120 ml MDD 30 ml PRN Reason: Cough Prednisone 10 mg [Deltasone 10 mg] 10 mg PO TID #12 tablet
[2021-12-06 04:53] VITALS: PULSE 87; O2SAT 97
== END 2021-12-06 04:57 | disposition home or self-care (01) ==
LOC: ED 02:43
DX: U07.1 COVID-19 (principal); R50.9 Fever, unspecified; R05.1 Acute cough; R51.9 Headache, unspecified; M79.10 Myalgia, unspecified site; Z28.310 Unvaccinated for COVID-19; Z79.891 Long term (current) use of opiate analgesic; Z79.52 Long term (current) use of systemic steroids
CPT/HCPCS: 0241U; 87651; 99282; A9270-GY

== ENCOUNTER 2022-02-20 19:44 | Emergency (ER) | payer OTHER ==
[2022-02-20] MEDS ORDERED: Norflex 60 MG/2 ML IM ONE (20:03)
[2022-02-20] MEDS ORDERED: TORAdol 30 mg Injection IM ONE (20:03)
[2022-02-20] MEDS ORDERED: Norflex 60 MG/2 ML ONE (20:09)
[2022-02-20] MEDS ORDERED: TORAdol 30 mg Injection ONE (20:09)
--- NOTE | 2022-02-20 20:55 | ERPHSYRPT ---
- History of Present Illness Time Seen by Provider: 02/20/22 20:02 Source: patient Exam Limitations: no limitations Patient Subjective Stated Complaint: pt states he has been having lower back pain, radiating down to his hips Triage Nursing Assessment: pt alert and oriented, answers questions approp. pt ambulatory with slow steady gait noted. respirations nonlabored. skin warm and dry. pt reports tenderness to lower back. pt moves lower ext without diff Physician History: 41-year-old morbidly obese male with history of chronic back pain presented in the ER with chief complaint of right lower back pain since morning moderate to severe sharp with some radiation to right hip, aggravated with movements, ambulation and better with being still. Patient denies any numbness tingling weakness of lower extremities, no loss of bowel or bladder control. Denies any fall or trauma but thinks he might have twisted it in the wrong way. Denies any urinary complaints. Timing/Duration: today, constant, gradual onset, worse Method of Injury: twisted Quality: sharp Back Pain Location: lumbar spine Back Pain Radiation: buttocks Severity of Pain-Max: severe Severity of Pain-Current: severe Modifying Factors: Improves With: immobilization. Worsens With: movement Associated Symptoms: lower back pain, muscle spasms, No urinary incontinence, No loss of bowel control, No problems urinating, No numbness in legs/feet, No sensory/motor loss Previous symptoms: same symptoms as today Allergies/Adverse Reactions: vancomycin Adverse Reaction (Mild, Verified 02/20/22 20:05) Rash Hx Tetanus, Diphtheria Vaccination/Date Given: Yes Hx Influenza Vaccination/Date Given: No Hx Pneumococcal Vaccination/Date Given: No Immunizations Up to Date: Yes Travel Risk - International Travel Have you traveled outside of the country in past 3 weeks: No - Coronavirus Screening Are you exhibiting any of the following symptoms?: No Close contact with a COVID-19 positive Pt in past 14-21 Days: No - Vaccine Status Have you recieved a Covid-19 vaccination: No - Review of Systems Constitutional: No Symptoms Eyes: No Symptoms Ears, Nose, & Throat: No Symptoms Respiratory: No Symptoms Cardiac: No Symptoms Abdominal/Gastrointestinal: No Symptoms Genitourinary Symptoms: No Symptoms Musculoskeletal: Back Pain Skin: No Symptoms Neurological: No Symptoms Endocrine: No Symptoms Hematologic/Lymphatic: No Symptoms Immunological/Allergic: No Symptoms - Past Medical History Pertinent Past Medical History: No Neurological History: No Pertinent History ENT History: No Pertinent History Cardiac History: No Pertinent History Respiratory History: Sleep Apnea Endocrine Medical History: No Pertinent History Musculoskeletal History: No Pertinent History GI Medical History: Other History: No Pertinent History Psycho-Social History: No Pertinent History Male Reproductive Disorders: No Pertinent History Other Medical History: ileus - Past Surgical History Past Surgical History: Yes Neuro Surgical History: No Pertinent History Cardiac: No Pertinent History Respiratory: No Pertinent History Gastrointestinal: No Pertinent History Genitourinary: No Pertinent History Musculoskeletal: Other Male Surgical History: No Pertinent History Other Surgical History: skin graft, surgery R big toe - Social History Smoking Status: Former smoker Exposure to second hand smoke: No Drug Use: none Patient Lives Alone: Yes - Nursing Vital Signs Nursing Vital Signs: Initial Vital Signs Temperature 97.0 F 02/20/22 19:50 Pulse Rate 99 H 02/20/22 19:50 Respiratory Rate 22 02/20/22 19:50 Blood Pressure 183/101 02/20/22 19:50 O2 Sat by Pulse Oximetry 99 02/20/22 19:50 Pain Scale Pain Intensity [Lower Back] 8 Pain Intensity 6 - Physical Exam General Appearance: no apparent distress Eye Exam: PERRL/EOMI Ears, Nose, Throat Exam: normal ENT inspection Neck Exam: normal inspection, full range of motion Respiratory Exam: normal breath sounds, lungs clear Cardiovascular Exam: regular rate/rhythm, normal heart sounds Gastrointestinal Exam: soft, normal bowel sounds, No tenderness Back Exam: normal inspection, decreased range of motion, muscle spasm, point tenderness (Right sacroiliac area.), No normal range of motion, No vertebral tenderness Extremity Exam: normal inspection, normal range of motion, pelvis stable Neurologic Exam: alert, oriented x 3, cooperative Skin Exam: normal color SpO2 Interpretation: normal SpO2: 99 O2 Delivery: Room Air Ordered Tests: Medication Summary Discontinued Medications Generic Name Dose Route Start Last Admin Trade Name Freq PRN Reason Stop Dose Admin Ketorolac Tromethamine 30 mg 02/20/22 20:03 02/20/22 20:11 Ketorolac Tromethamine 30 Mg/Ml Inj IM 02/20/22 20:04 30 mg STAT ONE Administration Ketorolac Tromethamine Confirm 02/20/22 20:09 Ketorolac Tromethamine 30 Mg/Ml Inj Administered 02/20/22 20:10 Dose 30 mg .ROUTE .STK-MED ONE Orphenadrine Citrate 60 mg 02/20/22 20:03 02/20/22 20:12 Orphenadrine Citrate 60 Mg/2 Ml Vial IM 02/20/22 20:04 60 mg STAT ONE Administration Orphenadrine Citrate Confirm 02/20/22 20:09 Orphenadrine Citrate 60 Mg/2 Ml Vial Administered 02/20/22 20:10 Dose 60 mg .ROUTE .STK-MED ONE - Progress Progress: improved Progress Note: 02/20/22 21:33 Is given Toradol and Norflex, on reevaluation feeling much better. Patient does not have any midline back pain. Negative neuro exam in lower extremities. Do not think needs any imaging or other work-up. I believe he has a low back strain, will continue with muscle relaxants and NSAIDs to go home. Discussed signs symptoms of worsening needing return to ER which he seems understanding. Stable for discharge. Counseled pt/family regarding: diagnosis, need for follow-up - Departure Departure Disposition: Home Clinical Impression: Low back strain Condition: Stable Critical Care Time: No Referrals: ERYN HAYES MD [Primary Care Provider] - Follow Up with PCP/3 days Instructions: Low Back Pain (DC) Additional Instructions: Take Tylenol/ibuprofen as needed. Avoid exertional activities. Follow-up with primary care for reevaluation. Return to ER for worsening back pain or if having difficulty urination, loss of bowel or bladder control, numbness tingling weakness of lower extremity etc. Prescriptions: Ibuprofen 600 mg PO Q6HPRN PRN 10 Days #20 tablet PRN Reason: Pain Cyclobenzaprine HCl 10 mg [Flexeril 10 MG] 10 mg PO TID #20 tablet
[2022-02-20] MEDS ORDERED: NORCO 5/325 MG PO ONE (21:33)
[2022-02-20] MEDS ORDERED: NORCO 5/325 MG ONE (21:37)
[2022-02-20 21:48] VITALS: BP 155/81; PULSE 85; O2SAT 97
== END 2022-02-20 21:48 | disposition home or self-care (01) ==
LOC: ED 19:44
DX: S39.012A Strain of muscle, fascia and tendon of lower back, initial encounter (principal); X50.0XXA Overexertion from strenuous movement or load, initial encounter; Z28.310 Unvaccinated for COVID-19
CPT/HCPCS: 96372; 99283; J1885; J2360; A9270-GY

== ENCOUNTER 2022-06-21 07:57 | Emergency (ER) | payer OTHER ==
--- NOTE | 2022-06-21 08:19 | ERPHSYRPT ---
- History of Present Illness Time Seen by Provider: 06/21/22 08:05 Source: patient Exam Limitations: no limitations Patient Subjective Stated Complaint: pt reports cutting tape with a sharp kitchen knife when the knife slipped and cut his left index finger Triage Nursing Assessment: pt is aox3, pupils perrl, afebrile, resps easy and non labored, radial pulses strong and equal, cap refill < 3 seconds, pt skin pink warm dry. approx 2 cm skin flap to the tip of the left index finger, skin is well approximated with minimal bleeding at this time. pt ROM and sensation intact. Physician History: Patient was cutting a ball of tape with a very sharp kitchen knife when he slipped and cut the distal phalanx of his left index finger V-shaped flap laceration broad-based at the distal portion. This occurred just prior to a rrival patient arrived by private vehicle. No other injury he is due for a tetanus. Timing/Duration: today Quality: painful Severity: moderate Location: hands (Left index finger distal phalanx) Allergies/Adverse Reactions: vancomycin Adverse Reaction (Mild, Verified 06/21/22 08:10) Rash Home Medications: No Reportable Medications [No Reported Medications] 06/21/22 [History] Hx Tetanus, Diphtheria Vaccination/Date Given: No Hx Influenza Vaccination/Date Given: No Hx Pneumococcal Vaccination/Date Given: No Immunizations Up to Date: Yes Travel Risk - International Travel Have you traveled outside of the country in past 3 weeks: No - Coronavirus Screening Are you exhibiting any of the following symptoms?: No Close contact with a COVID-19 positive Pt in past 14-21 Days: No - Vaccine Status Have you recieved a Covid-19 vaccination: No - Review of Systems Constitutional: No Fever, No Chills Eyes: No Symptoms Ears, Nose, & Throat: No Symptoms Respiratory: No Cough, No Dyspnea Cardiac: No Chest Pain, No Edema, No Syncope Abdominal/Gastrointestinal: No Abdominal Pain, No Nausea, No Vomiting, No Diarrhea Genitourinary Symptoms: No Dysuria Musculoskeletal: No Back Pain, No Neck Pain Skin: Other (Laceration left index finger), No Rash Neurological: No Dizziness, No Focal Weakness, No Sensory Changes Psychological: No Symptoms Endocrine: No Symptoms All Other Systems: Reviewed and Negative - Past Medical History Pertinent Past Medical History: No Neurological History: No Pertinent History ENT History: No Pertinent History Cardiac History: No Pertinent History Respiratory History: Sleep Apnea Endocrine Medical History: No Pertinent History Musculoskeletal History: No Pertinent History GI Medical History: Other History: No Pertinent History Psycho-Social History: No Pertinent History Male Reproductive Disorders: No Pertinent History Other Medical History: ileus - Past Surgical History Past Surgical History: Yes Neuro Surgical History: No Pertinent History Cardiac: No Pertinent History Respiratory: No Pertinent History Gastrointestinal: No Pertinent History Genitourinary: No Pertinent History Musculoskeletal: Other Male Surgical History: No Pertinent History Other Surgical History: skin graft, surgery R big toe - Social History Smoking Status: Former smoker Exposure to second hand smoke: No Drug Use: none Patient Lives Alone: No - Nursing Vital Signs Nursing Vital Signs: Initial Vital Signs Temperature 98.1 F 06/21/22 08:00 Pulse Rate 81 06/21/22 08:00 Blood Pressure 169/103 06/21/22 08:00 O2 Sat by Pulse Oximetry 98 06/21/22 08:00 Pain Scale Pain Intensity 0 - Physical Exam General Appearance: mild distress, obese Eye Exam: PERRL/EOMI, eyes nml inspection Ears, Nose, Throat Exam: normal ENT inspection, pharynx normal, moist mucous membranes Neck Exam: normal inspection, non-tender, supple, full range of motion Respiratory Exam: normal breath sounds, lungs clear, No respiratory distress Extremity Exam: other (V-shaped flap laceration distal phalanx left index finger radial side) Neurologic Exam: alert, oriented x 3, cooperative SpO2 Interpretation: normal SpO2: 98 O2 Delivery: Room Air Procedures - Laceration/Wound Repair Left Finger Time of Procedure: 08:05 Wound Location: Left, hand (Left index finger) Wound Length (cm): 3 Wound Explored: clean Irrigated: Yes Hibiclens Prep: Yes Volume Anesthetic (ccs): 3 Wound Debrided: minimal Wound Repaired With: sutures Suture Size/Type: 4-0 Number of Sutures: 3 Layer Closure?: No Sterile Dressing Applied?: Yes Splint Applied?: No - Course Nursing assessment & vital signs reviewed: Yes - Progress Progress: improved Medical Desision Making - Discussion of managment Agreed on:: Treatment plan (Treatment plan was discussed with the patient.) - Diagnostic Testing Diagnostic test were ordered, analyzed, and reviewed by me: No - Departure Departure Disposition: Home Clinical Impression: Laceration of left index finger Condition: Stable Critical Care Time: No Referrals: ERYN HAYES MD [Primary Care Provider] - Follow up/PCP as directed Instructions: Laceration Repair With Stitches (DC)
[2022-06-21] MEDS ORDERED: BACIGUENT PACKET TP ONE (08:22)
[2022-06-21] MEDS ORDERED: Adacel Vial IM ONE ×2 (08:22→08:25)
[2022-06-21] MEDS ORDERED: BACIGUENT PACKET ONE (08:24)
[2022-06-21] MEDS ORDERED: XYLOCAINE 1% HCL 20 ML MDV ONE (08:24)
[2022-06-21 08:49] VITALS: BP 158/90; PULSE 84; O2SAT 99
== END 2022-06-21 08:47 | disposition home or self-care (01) ==
LOC: ED 07:57
DX: S61.211A Laceration without foreign body of left index finger without damage to nail, initial encounter (principal); W26.0XXA Contact with knife, initial encounter; Z28.310 Unvaccinated for COVID-19
CPT/HCPCS: 12002; 90471; 90715; 99282; A9270-GY

== ENCOUNTER 2022-10-08 11:06 | Observation (INO) | payer OTHER ==
[2022-10-08] MEDS ORDERED: Sodium Chloride 0.9% 1000 ML 1,000 ML IV STA ×2 (11:37→12:41)
[2022-10-08] MEDS ORDERED: Sodium Chloride 0.9% 1000 ML 1,000 ML ONE (11:40)
[2022-10-08 11:50] LABS: Absolute Neutrophil Ct (ANC) 4.65 x10^3/uL (1.4-6.9); BASOPHIL % 0.7 % (0.0-0.4); Basophil (Absolute #) 0.05 x10^3/uL (0-0.4); Eosinophil % 2.8 % (0.00-5.0); Eosinophil (Absolute #) 0.21 x10^3/uL (0-0.5); Hematocrit 43.7 % (42-50); Hemoglobin 15.1 g/dL (12.5-18.0); IMMATURE GRAN # 0.07 x10^3u/L (0.00-0.03); IMMATURE GRAN % 0.9 % (0.00-0.4); Lymphocyte (Absolute #) 1.96 x10^3/uL (1.0-4.6); Lymphocytes % 25.8 % (24.0-44.0); Mean Corpuscular Hemoglobin 28.3 pg (26-32); Mean Corpuscular Hgb Concent. 34.6 g/dL (32-36); Mean Platelet Volume 10.3 fL (7.5-11.0); Monocyte (Absolute #) 0.67 x10^3/uL (0.0-1.3); Monocytes % 8.8 % (0.0-12.0); Platelet Count 260 x10^3/uL (150-450); Red Blood Count 5.33 x10^6/uL (4.1-5.6); Red Cell Distribution Width 13.2 % (11.5-14.0); White Blood Count 7.6 x10^3/uL (4.0-10.5)
[2022-10-08 11:51] LABS: VBG BASE EXCESS 1.2 (-2.0-2.0); VBG CARBOXYHEMOGLOBIN 2.7 % T HGB (0.0-6.9); VBG HCO3- 25.1 meq/L (22-28); VBG HEMOGLOBIN 15.7; VBG O2 SATURATION 97.5 (95-100); VBG pH 7.44 (7.32-7.42)
[2022-10-08 12:06] LABS: ALBUMIN 4.4 g/dL (3.5-5.0); ALKALINE PHOSPHATASE 139 U/L (38-126); ANION GAP 19.9 MEQ/L (5-15); BLOOD UREA NITROGEN 18 mg/dL (9-20); CHLORIDE 92 mmol/L (98-107); Calcium 8.9 mg/dL (8.4-10.2); Carbon Dioxide 21 mmol/L (22-30); Creatinine 1 0.61 mg/dL (0.66-1.25); EST GLOMERULAR FILTRATION RATE > 60.0 ML/MIN; LIPASE 102 U/L (23-300); Potassium 4.6 mmol/L (3.5-5.1); SGOT/AST 45 U/L (17-59); SGPT/ALT 54 U/L (0-50); SODIUM 128 mmol/L (137-145); Total Protein 8.7 g/dL (6.3-8.2)
[2022-10-08 12:17] LABS: Glucose 751 mg/dL (74-106)
[2022-10-08 12:30] LABS: Appearance Clear (Clear); Bacteria None Seen /HPF (None Seen); Bilirubin Negative (Negative); Blood Negative (Negative); Budding Yeast Few /HPF (None Seen); Epithelial Cells None Seen /HPF (None Seen); Glucose, Urine >=1000 mg/dL (Negative); Hyaline Casts NONE SEEN /LPF (0-2); Ketones Negative (Negative); Leukocyte Esterase Negative (Negative); Nitrite Negative (Negative); Protein,Urine Dip Negative (Negative); RBC 0-2 /HPF (0-5); Specific Gravity >=1.030 (1.005-1.030); Urobilinogen 0.2 mg/dL (0.2)
[2022-10-08 12:31] LABS: ADD URINE CULTURE? NO (NO)
[2022-10-08] MEDS ORDERED: MYXREDLIN 100 UNIT/100 ML BAG 100 UNIT/100 ML PLAST..BAG IV PRN (12:41)
[2022-10-08] MEDS ORDERED: HUMULIN R IV ONE (12:41)
[2022-10-08] MEDS ORDERED: HUMULIN R ONE (12:45)
[2022-10-08] MEDS ORDERED: Sodium Chloride 0.9% 1000 ML 1,000 ML IV SCH ×2 (12:45→13:56)
--- NOTE | 2022-10-08 13:10 | ERPHSYRPT ---
- History of Present Illness Time Seen by Provider: 10/08/22 11:36 Source: patient Exam Limitations: no limitations Patient Subjective Stated Complaint: pt state I think I have undiagnosed diabetes. I am drinking all the time and peeing all the time. Triage Nursing Assessment: pt ambulated into the er; pt axo x4; no respiratory distress present; skin PDW; mucus membrane pink and moist; urine pale yellow, clear; blood sugar on arrival reads high; hypertension; tachycardic Physician History: 41-year-old male with history of hypertension, hyperlipidemia noncompliant with medications presented in the ER with chief complaint of polydipsia and polyuria going on for over a month with progressive worsening. Patient also feels weak fatigued tired and dehydrated. Denies any chest pain palpitations or shortness of breath. No abdominal pain nausea or vomiting/diarrhea. Denies any known sick contact On presentation patient has a blood sugar on glucometer reads high. Not a diagnosed diabetic. Timing/Duration: week(s), gradual onset, worse Severity: moderate Associated Symptoms: malaise Allergies/Adverse Reactions: vancomycin Adverse Reaction (Mild, Verified 10/08/22 11:13) Rash Home Medications: No Reportable Medications [No Reported Medications] 06/21/22 [History] Hx Tetanus, Diphtheria Vaccination/Date Given: Yes Hx Influenza Vaccination/Date Given: No Hx Pneumococcal Vaccination/Date Given: No Travel Risk - International Travel Have you traveled outside of the country in past 3 weeks: No - Coronavirus Screening Are you exhibiting any of the following symptoms?: No Close contact with a COVID-19 positive Pt in past 14-21 Days: No - Vaccine Status Have you recieved a Covid-19 vaccination: No - Review of Systems Constitutional: Fatigue, Weakness Eyes: No Symptoms Ears, Nose, & Throat: No Symptoms Respiratory: No Symptoms Cardiac: No Symptoms Abdominal/Gastrointestinal: No Symptoms Genitourinary Symptoms: No Symptoms Musculoskeletal: No Symptoms Skin: No Symptoms Neurological: No Symptoms Endocrine: No Symptoms Hematologic/Lymphatic: No Symptoms - Past Medical History Pertinent Past Medical History: No Neurological History: No Pertinent History ENT History: No Pertinent History Cardiac History: Hypertension Respiratory History: Sleep Apnea Endocrine Medical History: No Pertinent History Musculoskeletal History: No Pertinent History GI Medical History: Other History: No Pertinent History Psycho-Social History: No Pertinent History Male Reproductive Disorders: No Pertinent History Other Medical History: ileus - Past Surgical History Past Surgical History: Yes Neuro Surgical History: No Pertinent History Cardiac: No Pertinent History Respiratory: No Pertinent History Gastrointestinal: No Pertinent History Genitourinary: No Pertinent History Musculoskeletal: Other Male Surgical History: No Pertinent History Other Surgical History: skin graft, surgery R big toe - Social History Smoking Status: Former smoker Exposure to second hand smoke: No Drug Use: none Patient Lives Alone: Yes - Nursing Vital Signs Nursing Vital Signs: Initial Vital Signs Pulse Rate 111 H 10/08/22 11:17 Blood Pressure 153/125 10/08/22 11:17 O2 Sat by Pulse Oximetry 96 10/08/22 11:17 Pain Scale Pain Intensity 0 - Physical Exam General Appearance: no apparent distress, alert Eye Exam: PERRL/EOMI, eyes nml inspection Ears, Nose, Throat Exam: normal ENT inspection, pharynx normal Neck Exam: normal inspection, non-tender, supple, full range of motion Respiratory Exam: normal breath sounds, lungs clear Cardiovascular Exam: normal heart sounds, tachycardia Gastrointestinal/Abdomen Exam: soft, normal bowel sounds, No tenderness Back Exam: normal inspection, normal range of motion Neurologic Exam: alert, oriented x 3, cooperative, 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, normal mood/affect, nml cerebellar function, nml station & gait, sensation nml, No motor deficits Skin Exam: normal color SpO2 Interpretation: normal SpO2: 95 O2 Delivery: Room Air Ordered Tests: Active Orders 24 hr Category Date Time Status IV Insertion STAT Care 10/08/22 11:37 Active CBC W DIFF Stat Lab 10/08/22 11:39 Completed CMP Stat Lab 10/08/22 11:39 Completed LIPASE Stat Lab 10/08/22 11:39 Completed Lactic Acid Stat Lab 10/08/22 11:48 Completed POCT GLUCOSE Stat Lab 10/08/22 11:19 Received POCT GLUCOSE Stat Lab 10/08/22 12:55 Completed TROPONIN Q4H Lab 10/08/22 11:39 Completed TROPONIN Q4H Lab 10/08/22 15:45 Ordered TROPONIN Q4H Lab 10/08/22 19:45 Ordered UA W/RFX UR CULTURE Stat Lab 10/08/22 11:39 Completed VBG [VENOUS BLOOD GAS] Stat Lab 10/08/22 11:48 Completed Medication Summary Generic Name Dose Route Start Last Admin Trade Name Freq PRN Reason Stop Dose Admin Sodium Chloride 1,000 mls @ 999 mls/hr 10/08/22 12:41 10/08/22 12:47 Sodium Chloride 0.9% 1000 Ml IV 10/08/22 13:41 999 mls/hr .Q1H1M STA Administration INSULIN REGULAR IN 0.9 % NACL 100 unit in 100 mls @ 14.152 mls/hr 10/08/22 12:41 10/08/22 12:48 Myxredlin 100 Unit/100 Ml Bag IV 11/07/22 12:40 0.1 unit/kg/hr .Q7H4M PRN 14.152 mls/hr HYPERGLYCEMIA Administration Protocol 0.1 UNIT/KG/HR Sodium Chloride 1,000 mls @ 150 mls/hr 10/08/22 12:45 Sodium Chloride 0.9% 1000 Ml IV 11/07/22 12:44 .Q6H40M TERRY Discontinued Medications Generic Name Dose Route Start Last Admin Trade Name Cullen PRN Reason Stop Dose Admin Sodium Chloride 1,000 mls @ 999 mls/hr 10/08/22 11:37 10/08/22 12:57 Sodium Chloride 0.9% 1000 Ml IV 10/08/22 12:37 Infused .Q1H1M STA Infusion Sodium Chloride Confirm 10/08/22 11:40 Sodium Chloride 0.9% 1000 Ml Administered 10/08/22 11:41 Dose 1,000 mls @ ud .ROUTE .STK-MED ONE Insulin Human Regular 14 unit 10/08/22 12:41 10/08/22 12:46 Insulin Regular, Human 1 Unit IV 10/08/22 12:42 14 unit STAT ONE Administration Insulin Human Regular Confirm 10/08/22 12:45 Insulin Regular, Human 1 Unit Administered 10/08/22 12:46 Dose 14 unit .ROUTE .STK-MED ONE Lab/Rad Data: Laboratory Result Diagrams 10/08/22 11:39 10/08/22 11:39 Laboratory Results 10/08/22 10/08/22 10/08/22 Range/Units 12:55 11:48 11:48 WBC (4.0-10.5) x10^3/uL RBC (4.1-5.6) x10^6/uL Hgb (12.5-18.0) g/dL Hct (42-50) % MCV (78-100) fL MCH (26-32) pg MCHC (32-36) g/dL RDW (11.5-14.0) % Plt Count (150-450) x10^3/uL MPV (7.5-11.0) fL Gran % (36.0-66.0) % Immature Gran % (Auto) (0.00-0.4) % Nucleat RBC Rel Count (0.00-0.1) % Eos # (Auto) (0-0.5) x10^3/uL Immature Gran # (Auto) (0.00-0.03) x10^3u/L Absolute Lymphs (auto) (1.0-4.6) x10^3/uL Absolute Monos (auto) (0.0-1.3) x10^3/uL Absolute Nucleated RBC (0.00-0.01) x10^3u/L Lymphocytes % (24.0-44.0) % Monocytes % (0.0-12.0) % Eosinophils % (0.00-5.0) % Basophils % (0.0-0.4) % Absolute Granulocytes (1.4-6.9) x10^3/uL Basophils # (0-0.4) x10^3/uL pO2/FiO2 Ratio 21.0 % VBG pH 7.44 H (7.32-7.42) VBG pCO2 at Pat Temp 37 L (42-55) mm/Hg VBG pO2 at Pat Temp 81 H (25-40) mm/Hg VBG HCO3 25.1 (22-28) meq/L VBG O2 Sat (Renata) 97.5 (95-100) VBG Base Excess 1.2 (-2.0-2.0) VBG Hemoglobin 15.7 VBG Carboxyhemoglobin 2.7 (0.0-6.9) % T HGB POC Potassium 5.0 (3.5-5.1) Sodium (137-145) mmol/L Potassium (3.5-5.1) mmol/L Chloride (98-107) mmol/L Carbon Dioxide (22-30) mmol/L Anion Gap (5-15) MEQ/L BUN (9-20) mg/dL Creatinine (0.66-1.25) mg/dL Estimated GFR ML/MIN Glucose (74-106) mg/dL POC Glucometer 479 H (74 to 106) mg/dL Lactic Acid 2.6 H (0.4-2.0) Calcium (8.4-10.2) mg/dL Total Bilirubin (0.2-1.3) mg/dL AST (17-59) U/L ALT (0-50) U/L Alkaline Phosphatase (38-126) U/L Troponin I (0.000-0.034) ng/mL Serum Total Protein (6.3-8.2) g/dL Albumin (3.5-5.0) g/dL Lipase (23-300) U/L Urine Color (Yellow) Urine Appearance (Clear) Urine pH (4.6-8.0) Ur Specific [place] (1.005-1.030) Urine Protein (Negative) Urine Glucose (UA) (Negative) mg/dL Urine Ketones (Negative) Urine Blood (Negative) Urine Nitrite (Negative) Urine Bilirubin (Negative) Urine Urobilinogen (0.2) mg/dL Ur Leukocyte Esterase (Negative) U Hyaline Cast (Auto) (0-2) /LPF Urine Microscopic RBC (0-5) /HPF Urine Microscopic WBC (0-5) /HPF Ur Epithelial Cells (None Seen) /HPF Urine Bacteria (None Seen) /HPF Urine Yeast (Budding) (None Seen) /HPF Urine Culture Reflexed (NO) 10/08/22 10/08/22 10/08/22 Range/Units 11:39 11:39 11:39 WBC 7.6 (4.0-10.5) x10^3/uL RBC 5.33 (4.1-5.6) x10^6/uL Hgb 15.1 (12.5-18.0) g/dL Hct 43.7 (42-50) % MCV 82.0 (78-100) fL MCH 28.3 (26-32) pg MCHC 34.6 (32-36) g/dL RDW 13.2 (11.5-14.0) % Plt Count 260 (150-450) x10^3/uL MPV 10.3 (7.5-11.0) fL Gran % 61.0 (36.0-66.0) % Immature Gran % (Auto) 0.9 H (0.00-0.4) % Nucleat RBC Rel Count 0.0 (0.00-0.1) % Eos # (Auto) 0.21 (0-0.5) x10^3/uL Immature Gran # (Auto) 0.07 H (0.00-0.03) x10^3u/L Absolute Lymphs (auto) 1.96 (1.0-4.6) x10^3/uL Absolute Monos (auto) 0.67 (0.0-1.3) x10^3/uL Absolute Nucleated RBC 0.00 (0.00-0.01) x10^3u/L Lymphocytes % 25.8 (24.0-44.0) % Monocytes % 8.8 (0.0-12.0) % Eosinophils % 2.8 (0.00-5.0) % Basophils % 0.7 (0.0-0.4) % Absolute Granulocytes 4.65 (1.4-6.9) x10^3/uL Basophils # 0.05 (0-0.4) x10^3/uL pO2/FiO2 Ratio % VBG pH (7.32-7.42) VBG pCO2 at Pat Temp (42-55) mm/Hg VBG pO2 at Pat Temp (25-40) mm/Hg VBG HCO3 (22-28) meq/L VBG O2 Sat (Renata) (95-100) VBG Base Excess (-2.0-2.0) VBG Hemoglobin VBG Carboxyhemoglobin (0.0-6.9) % T HGB POC Potassium (3.5-5.1) Sodium 128 L (137-145) mmol/L Potassium 4.6 (3.5-5.1) mmol/L Chloride 92 L (98-107) mmol/L Carbon Dioxide 21 L (22-30) mmol/L Anion Gap 19.9 H (5-15) MEQ/L BUN 18 (9-20) mg/dL Creatinine 0.61 L (0.66-1.25) mg/dL Estimated GFR > 60.0 ML/MIN Glucose 751 H* (74-106) mg/dL POC Glucometer (74 to 106) mg/dL Lactic Acid (0.4-2.0) Calcium 8.9 (8.4-10.2) mg/dL Total Bilirubin 0.80 (0.2-1.3) mg/dL AST 45 (17-59) U/L ALT 54 H (0-50) U/L Alkaline Phosphatase 139 H (38-126) U/L Troponin I < 0.012 (0.000-0.034) ng/mL Serum Total Protein 8.7 H (6.3-8.2) g/dL Albumin 4.4 (3.5-5.0) g/dL Lipase 102 (23-300) U/L Urine Color (Yellow) Urine Appearance (Clear) Urine pH (4.6-8.0) Ur Specific [place] (1.005-1.030) Urine Protein (Negative) Urine Glucose (UA) (Negative) mg/dL Urine Ketones (Negative) Urine Blood (Negative) Urine Nitrite (Negative) Urine Bilirubin (Negative) Urine Urobilinogen (0.2) mg/dL Ur Leukocyte Esterase (Negative) U Hyaline Cast (Auto) (0-2) /LPF Urine Microscopic RBC (0-5) /HPF Urine Microscopic WBC (0-5) /HPF Ur Epithelial Cells (None Seen) /HPF Urine Bacteria (None Seen) /HPF Urine Yeast (Budding) (None Seen) /HPF Urine Culture Reflexed (NO) 10/08/22 Range/Units 11:39 WBC (4.0-10.5) x10^3/uL RBC (4.1-5.6) x10^6/uL Hgb (12.5-18.0) g/dL Hct (42-50) % MCV (78-100) fL MCH (26-32) pg MCHC (32-36) g/dL RDW (11.5-14.0) % Plt Count (150-450) x10^3/uL MPV (7.5-11.0) fL Gran % (36.0-66.0) % Immature Gran % (Auto) (0.00-0.4) % Nucleat RBC Rel Count (0.00-0.1) % Eos # (Auto) (0-0.5) x10^3/uL Immature Gran # (Auto) (0.00-0.03) x10^3u/L Absolute Lymphs (auto) (1.0-4.6) x10^3/uL Absolute Monos (auto) (0.0-1.3) x10^3/uL Absolute Nucleated RBC (0.00-0.01) x10^3u/L Lymphocytes % (24.0-44.0) % Monocytes % (0.0-12.0) % Eosinophils % (0.00-5.0) % Basophils % (0.0-0.4) % Absolute Granulocytes (1.4-6.9) x10^3/uL Basophils # (0-0.4) x10^3/uL pO2/FiO2 Ratio % VBG pH (7.32-7.42) VBG pCO2 at Pat Temp (42-55) mm/Hg VBG pO2 at Pat Temp (25-40) mm/Hg VBG HCO3 (22-28) meq/L VBG O2 Sat (Renata) (95-100) VBG Base Excess (-2.0-2.0) VBG Hemoglobin VBG Carboxyhemoglobin (0.0-6.9) % T HGB POC Potassium (3.5-5.1) Sodium (137-145) mmol/L Potassium (3.5-5.1) mmol/L Chloride (98-107) mmol/L Carbon Dioxide (22-30) mmol/L Anion Gap (5-15) MEQ/L BUN (9-20) mg/dL Creatinine (0.66-1.25) mg/dL Estimated GFR ML/MIN Glucose (74-106) mg/dL POC Glucometer (74 to 106) mg/dL Lactic Acid (0.4-2.0) Calcium (8.4-10.2) mg/dL Total Bilirubin (0.2-1.3) mg/dL AST (17-59) U/L ALT (0-50) U/L Alkaline Phosphatase (38-126) U/L Troponin I (0.000-0.034) ng/mL Serum Total Protein (6.3-8.2) g/dL Albumin (3.5-5.0) g/dL Lipase (23-300) U/L Urine Color Yellow (Yellow) Urine Appearance Clear (Clear) Urine pH 6.0 (4.6-8.0) Ur Specific [place] >=1.030 A (1.005-1.030) Urine Protein Negative (Negative) Urine Glucose (UA) >=1000 A (Negative) mg/dL Urine Ketones Negative (Negative) Urine Blood Negative (Negative) Urine Nitrite Negative (Negative) Urine Bilirubin Negative (Negative) Urine Urobilinogen 0.2 (0.2) mg/dL Ur Leukocyte Esterase Negative (Negative) U Hyaline Cast (Auto) NONE SEEN (0-2) /LPF Urine Microscopic RBC 0-2 (0-5) /HPF Urine Microscopic WBC 3-5 (0-5) /HPF Ur Epithelial Cells None Seen (None Seen) /HPF Urine Bacteria None Seen (None Seen) /HPF Urine Yeast (Budding) Few A (None Seen) /HPF Urine Culture Reflexed NO (NO) - Progress Progress: improved, re-examined Progress Note: 10/08/22 13:01 41-year-old male with history of hypertension, hyperlipidemia noncompliant with medications presented in the ER with chief complaint of polydipsia and polyuria going on for over a month with progressive worsening. Patient also feels weak fatigued tired and dehydrated. Denies any chest pain palpitations or shortness of breath. No abdominal pain nausea or vomiting/diarrhea. Denies any known sick contact On presentation patient has a blood sugar on glucometer reads high. Not a diagnosed diabetic. Is given fluid bolus and broad work-up is done. Patient has a white count of 7.6, blood glucose of 751 with a gap of 19.9 and bicarb of 21 with normal pH 7.4. Negative ketones in urine. Patient is not in DKA but has new onset diabetes mellitus/hyperglycemia. Given 14 units of insulin IV and will give couple of more units of fluids. Discussed with hospitalist about starting on insulin drip, recommended reevaluation after 2 more boluses of fluids and will go with sliding scale from there. Agreed with ADMISSION. Lab w ork, current management and plan of admission discussed with patient who understand and agrees with it. Discussed with Dr.: Other () Will see patient in: hospital (observation) Counseled pt/family regarding: lab results, diagnosis, need for follow-up, rad results Medical Desision Making - Discussion of managment Care discussed with:: hospitalist (dr. Lange) Reviewed:: Test results Agreed on:: Treatment plan, place in obs Will see patient: in hospital - Diagnostic Testing Diagnostic test were ordered, analyzed, and reviewed by me: Yes - Risk of complications The pt has a high risk of morbidity or mortality based on: Decision regarding hospitilization or escalation of hosp level of care - Departure Departure Disposition: Observation Clinical Impression: Hyperglycemia, New onset type 2 diabetes mellitus Condition: Stable Critical Care Time: No Referrals: HOSPITAL,'S [Primary Care Provider] - Follow up/PCP as directed
[2022-10-08] MEDS ORDERED: TYLENOL 325 MG PO PRN (13:56)
[2022-10-08] MEDS: HUMALOG SQ PRN ×2 (15:57→20:25)
[2022-10-08 16:09] LABS: ANION GAP 14.5 MEQ/L (5-15); BLOOD UREA NITROGEN 14 mg/dL (9-20); CHLORIDE 101 mmol/L (98-107); Calcium 7.9 mg/dL (8.4-10.2); Carbon Dioxide 24 mmol/L (22-30); Creatinine 1 0.51 mg/dL (0.66-1.25); EST GLOMERULAR FILTRATION RATE > 60.0 ML/MIN; Glucose 332 mg/dL (74-106); Potassium 3.7 mmol/L (3.5-5.1); SODIUM 135 mmol/L (137-145)
[2022-10-08] MEDS ORDERED: APRESOLINE 20 MG/ML INJ IV PRN (19:16)
--- NOTE | 2022-10-08 19:23 | PCM.HP ---
History of Present Illness - Chief Complaint Chief Complaint: new onset of type 2 diabetes Date: 10/08/22 History of Present Illness: Mr. Dunn is a 41 year-old male with HTN, HLD, medical noncompliance, and obesity who presents with polyuria and polydipsia for a month. Upon arrival to [facility], his laboratory data revealed a blood glucose o 751, no AGMA, no ketones in the urine, and a serum sodium of 128. He was given a total of 15U IV insulin and 3L of crystalloid upon my instructions, and he is now on the medical surgical floor doing well, feeling better, on an ISS and not on an insulin drip. He further denies fevers, chills, nausea, vomiting, diarrhea, syncope, presyncope, visual changes, orthopnea, PND, odynophagia, dysphagia, chest pain, shortness of breath, belly pain, dysuria, hematuria, melena, hematochezia, or neurological changes. All other systems were reviewed and were negative. - Review of Systems Constitutional: Other ( PER HPI) Medications & Allergies Home Medications: Home Medication List No Reportable Medications [No Reported Medications] 06/21/22 [History Confirmed 10/08/22] Allergies/Adverse Reactions: Allergies Allergy/AdvReac Type Severity Reaction Status Date / Time vancomycin AdvReac Mild Rash Verified 10/08/22 11:13 - Past Medical History Past Medical History: No Neurological History: No Pertinent History ENT History: No Pertinent History Cardiac History: Hypertension Respiratory History: Sleep Apnea Endocrine Medical History: No Pertinent History Musculoskelatal History: No Pertinent History GI Medical History: Other History: No Pertinent History Pyscho-Social History: No Pertinent History Male Reproductive Disorders: No Pertinent History Comment: ileus - Past Surgical History Past Surgical History: Yes Neuro Surgical History: No Pertinent History Cardiac History: No Pertinent History Respiratory Surgery: No Pertinent History GI Surgical History: No Pertinent History Genitourinary Surgical Hx: No Pertinent History Musculskeletal Surgical Hx: Other Male Surgical History: No Pertinent History Other Surgical History: skin graft, surgery R big toe - Social History Smoking Status: Former smoker Exposure to second hand smoke: No Alcohol: None Drug Use: none - Physical Exam Vital Signs: Vital Signs - 24 hr Temp Pulse Resp BP BP Pulse Ox 10/08/22 16:14 37 H 10/08/22 16:00 98.9 F 86 17 148/79 95 10/08/22 15:50 24 10/08/22 15:40 95 H 11 L 10/08/22 15:37 91 H 27 H 10/08/22 14:24 99.3 F 107 H 20 170/105 96 10/08/22 13:55 99.3 F 107 H 16 170/105 96 10/08/22 13:17 95 10/08/22 13:12 168/105 97 10/08/22 13:10 101 H 168/105 97 10/08/22 13:02 97 10/08/22 12:00 105 H 166/108 95 10/08/22 11:18 99.3 F 113 H 20 153/125 97 10/08/22 11:17 111 H 153/125 96 General Appearance: no apparent distress Neurologic Exam: alert, oriented x 3 Eye Exam: PERRL/EOMI Ears, Nose, Throat Exam: normal ENT inspection Neck Exam: normal inspection, non-tender Respiratory Exam: normal breath sounds Cardiovascular Exam: regular rate/rhythm Gastrointestinal/Abdomen Exam: soft, normal bowel sounds Rectal Exam: deferred Back Exam: normal inspection Extremity Exam: normal inspection Skin Exam: normal color Results - Labs Lab/Micro Results: Lab Results-Last 24 Hours 10/08/22 10/08/22 10/08/22 Range/Units 11:39 11:39 11:39 WBC 7.6 (4.0-10.5) x10^3/uL RBC 5.33 (4.1-5.6) x10^6/uL Hgb 15.1 (12.5-18.0) g/dL Hct 43.7 (42-50) % MCV 82.0 (78-100) fL MCH 28.3 (26-32) pg MCHC 34.6 (32-36) g/dL RDW 13.2 (11.5-14.0) % Plt Count 260 (150-450) x10^3/uL MPV 10.3 (7.5-11.0) fL Gran % 61.0 (36.0-66.0) % Immature Gran % (Auto) 0.9 H (0.00-0.4) % Nucleat RBC Rel Count 0.0 (0.00-0.1) % Eos # (Auto) 0.21 (0-0.5) x10^3/uL Immature Gran # (Auto) 0.07 H (0.00-0.03) x10^3u/L Absolute Lymphs (auto) 1.96 (1.0-4.6) x10^3/uL Absolute Monos (auto) 0.67 (0.0-1.3) x10^3/uL Absolute Nucleated RBC 0.00 (0.00-0.01) x10^3u/L Lymphocytes % 25.8 (24.0-44.0) % Monocytes % 8.8 (0.0-12.0) % Eosinophils % 2.8 (0.00-5.0) % Basophils % 0.7 (0.0-0.4) % Absolute Granulocytes 4.65 (1.4-6.9) x10^3/uL Basophils # 0.05 (0-0.4) x10^3/uL pO2/FiO2 Ratio % VBG pH (7.32-7.42) VBG pCO2 at Pat Temp (42-55) mm/Hg VBG pO2 at Pat Temp (25-40) mm/Hg VBG HCO3 (22-28) meq/L VBG O2 Sat (Renata) (95-100) VBG Base Excess (-2.0-2.0) VBG Hemoglobin VBG Carboxyhemoglobin (0.0-6.9) % T HGB POC Potassium (3.5-5.1) Sodium 128 L (137-145) mmol/L Potassium 4.6 (3.5-5.1) mmol/L Chloride 92 L (98-107) mmol/L Carbon Dioxide 21 L (22-30) mmol/L Anion Gap 19.9 H (5-15) MEQ/L BUN 18 (9-20) mg/dL Creatinine 0.61 L (0.66-1.25) mg/dL Estimated GFR > 60.0 ML/MIN Glucose 751 H* (74-106) mg/dL POC Glucometer (74 to 106) mg/dL Hemoglobin A1c (4.5-6.0) % Lactic Acid (0.4-2.0) Calcium 8.9 (8.4-10.2) mg/dL Total Bilirubin 0.80 (0.2-1.3) mg/dL AST 45 (17-59) U/L ALT 54 H (0-50) U/L Alkaline Phosphatase 139 H (38-126) U/L Troponin I (0.000-0.034) ng/mL Serum Total Protein 8.7 H (6.3-8.2) g/dL Albumin 4.4 (3.5-5.0) g/dL Lipase 102 (23-300) U/L Urine Color Yellow (Yellow) Urine Appearance Clear (Clear) Urine pH 6.0 (4.6-8.0) Ur Specific [place] >=1.030 A (1.005-1.030) Urine Protein Negative (Negative) Urine Glucose (UA) >=1000 A (Negative) mg/dL Urine Ketones Negative (Negative) Urine Blood Negative (Negative) Urine Nitrite Negative (Negative) Urine Bilirubin Negative (Negative) Urine Urobilinogen 0.2 (0.2) mg/dL Ur Leukocyte Esterase Negative (Negative) U Hyaline Cast (Auto) NONE SEEN (0-2) /LPF Urine Microscopic RBC 0-2 (0-5) /HPF Urine Microscopic WBC 3-5 (0-5) /HPF Ur Epithelial Cells None Seen (None Seen) /HPF Urine Bacteria None Seen (None Seen) /HPF Urine Yeast (Budding) Few A (None Seen) /HPF Urine Culture Reflexed NO (NO) 10/08/22 10/08/22 10/08/22 Range/Units 11:39 11:48 11:48 WBC (4.0-10.5) x10^3/uL RBC (4.1-5.6) x10^6/uL Hgb (12.5-18.0) g/dL Hct (42-50) % MCV (78-100) fL MCH (26-32) pg MCHC (32-36) g/dL RDW (11.5-14.0) % Plt Count (150-450) x10^3/uL MPV (7.5-11.0) fL Gran % (36.0-66.0) % Immature Gran % (Auto) (0.00-0.4) % Nucleat RBC Rel Count (0.00-0.1) % Eos # (Auto) (0-0.5) x10^3/uL Immature Gran # (Auto) (0.00-0.03) x10^3u/L Absolute Lymphs (auto) (1.0-4.6) x10^3/uL Absolute Monos (auto) (0.0-1.3) x10^3/uL Absolute Nucleated RBC (0.00-0.01) x10^3u/L Lymphocytes % (24.0-44.0) % Monocytes % (0.0-12.0) % Eosinophils % (0.00-5.0) % Basophils % (0.0-0.4) % Absolute Granulocytes (1.4-6.9) x10^3/uL Basophils # (0-0.4) x10^3/uL pO2/FiO2 Ratio 21.0 % VBG pH 7.44 H (7.32-7.42) VBG pCO2 at Pat Temp 37 L (42-55) mm/Hg VBG pO2 at Pat Temp 81 H (25-40) mm/Hg VBG HCO3 25.1 (22-28) meq/L VBG O2 Sat (Renata) 97.5 (95-100) VBG Base Excess 1.2 (-2.0-2.0) VBG Hemoglobin 15.7 VBG Carboxyhemoglobin 2.7 (0.0-6.9) % T HGB POC Potassium 5.0 (3.5-5.1) Sodium (137-145) mmol/L Potassium (3.5-5.1) mmol/L Chloride (98-107) mmol/L Carbon Dioxide (22-30) mmol/L Anion Gap (5-15) MEQ/L BUN (9-20) mg/dL Creatinine (0.66-1.25) mg/dL Estimated GFR ML/MIN Glucose (74-106) mg/dL POC Glucometer (74 to 106) mg/dL Hemoglobin A1c (4.5-6.0) % Lactic Acid 2.6 H (0.4-2.0) Calcium (8.4-10.2) mg/dL Total Bilirubin (0.2-1.3) mg/dL AST (17-59) U/L ALT (0-50) U/L Alkaline Phosphatase (38-126) U/L Troponin I < 0.012 (0.000-0.034) ng/mL Serum Total Protein (6.3-8.2) g/dL Albumin (3.5-5.0) g/dL Lipase (23-300) U/L Urine Color (Yellow) Urine Appearance (Clear) Urine pH (4.6-8.0) Ur Specific [place] (1.005-1.030) Urine Protein (Negative) Urine Glucose (UA) (Negative) mg/dL Urine Ketones (Negative) Urine Blood (Negative) Urine Nitrite (Negative) Urine Bilirubin (Negative) Urine Urobilinogen (0.2) mg/dL Ur Leukocyte Esterase (Negative) U Hyaline Cast (Auto) (0-2) /LPF Urine Microscopic RBC (0-5) /HPF Urine Microscopic WBC (0-5) /HPF Ur Epithelial Cells (None Seen) /HPF Urine Bacteria (None Seen) /HPF Urine Yeast (Budding) (None Seen) /HPF Urine Culture Reflexed (NO) 10/08/22 10/08/22 10/08/22 Range/Units 12:55 13:40 13:50 WBC (4.0-10.5) x10^3/uL RBC (4.1-5.6) x10^6/uL Hgb (12.5-18.0) g/dL Hct (42-50) % MCV (78-100) fL MCH (26-32) pg MCHC (32-36) g/dL RDW (11.5-14.0) % Plt Count (150-450) x10^3/uL MPV (7.5-11.0) fL Gran % (36.0-66.0) % Immature Gran % (Auto) (0.00-0.4) % Nucleat RBC Rel Count (0.00-0.1) % Eos # (Auto) (0-0.5) x10^3/uL Immature Gran # (Auto) (0.00-0.03) x10^3u/L Absolute Lymphs (auto) (1.0-4.6) x10^3/uL Absolute Monos (auto) (0.0-1.3) x10^3/uL Absolute Nucleated RBC (0.00-0.01) x10^3u/L Lymphocytes % (24.0-44.0) % Monocytes % (0.0-12.0) % Eosinophils % (0.00-5.0) % Basophils % (0.0-0.4) % Absolute Granulocytes (1.4-6.9) x10^3/uL Basophils # (0-0.4) x10^3/uL pO2/FiO2 Ratio % VBG pH (7.32-7.42) VBG pCO2 at Pat Temp (42-55) mm/Hg VBG pO2 at Pat Temp (25-40) mm/Hg VBG HCO3 (22-28) meq/L VBG O2 Sat (Renata) (95-100) VBG Base Excess (-2.0-2.0) VBG Hemoglobin VBG Carboxyhemoglobin (0.0-6.9) % T HGB POC Potassium (3.5-5.1) Sodium (137-145) mmol/L Potassium (3.5-5.1) mmol/L Chloride (98-107) mmol/L Carbon Dioxide (22-30) mmol/L Anion Gap (5-15) MEQ/L BUN (9-20) mg/dL Creatinine (0.66-1.25) mg/dL Estimated GFR ML/MIN Glucose (74-106) mg/dL POC Glucometer 479 H (74 to 106) mg/dL Hemoglobin A1c 11.84 H (4.5-6.0) % Lactic Acid 1.1 (0.4-2.0) Calcium (8.4-10.2) mg/dL Total Bilirubin (0.2-1.3) mg/dL AST (17-59) U/L ALT (0-50) U/L Alkaline Phosphatase (38-126) U/L Troponin I (0.000-0.034) ng/mL Serum Total Protein (6.3-8.2) g/dL Albumin (3.5-5.0) g/dL Lipase (23-300) U/L Urine Color (Yellow) Urine Appearance (Clear) Urine pH (4.6-8.0) Ur Specific [place] (1.005-1.030) Urine Protein (Negative) Urine Glucose (UA) (Negative) mg/dL Urine Ketones (Negative) Urine Blood (Negative) Urine Nitrite (Negative) Urine Bilirubin (Negative) Urine Urobilinogen (0.2) mg/dL Ur Leukocyte Esterase (Negative) U Hyaline Cast (Auto) (0-2) /LPF Urine Microscopic RBC (0-5) /HPF Urine Microscopic WBC (0-5) /HPF Ur Epithelial Cells (None Seen) /HPF Urine Bacteria (None Seen) /HPF Urine Yeast (Budding) (None Seen) /HPF Urine Culture Reflexed (NO) 10/08/22 10/08/22 10/08/22 Range/Units 15:43 15:45 16:00 WBC (4.0-10.5) x10^3/uL RBC (4.1-5.6) x10^6/uL Hgb (12.5-18.0) g/dL Hct (42-50) % MCV (78-100) fL MCH (26-32) pg MCHC (32-36) g/dL RDW (11.5-14.0) % Plt Count (150-450) x10^3/uL MPV (7.5-11.0) fL Gran % (36.0-66.0) % Immature Gran % (Auto) (0.00-0.4) % Nucleat RBC Rel Count (0.00-0.1) % Eos # (Auto) (0-0.5) x10^3/uL Immature Gran # (Auto) (0.00-0.03) x10^3u/L Absolute Lymphs (auto) (1.0-4.6) x10^3/uL Absolute Monos (auto) (0.0-1.3) x10^3/uL Absolute Nucleated RBC (0.00-0.01) x10^3u/L Lymphocytes % (24.0-44.0) % Monocytes % (0.0-12.0) % Eosinophils % (0.00-5.0) % Basophils % (0.0-0.4) % Absolute Granulocytes (1.4-6.9) x10^3/uL Basophils # (0-0.4) x10^3/uL pO2/FiO2 Ratio % VBG pH (7.32-7.42) VBG pCO2 at Pat Temp (42-55) mm/Hg VBG pO2 at Pat Temp (25-40) mm/Hg VBG HCO3 (22-28) meq/L VBG O2 Sat (Renata) (95-100) VBG Base Excess (-2.0-2.0) VBG Hemoglobin VBG Carboxyhemoglobin (0.0-6.9) % T HGB POC Potassium (3.5-5.1) Sodium 135 L D (137-145) mmol/L Potassium 3.7 (3.5-5.1) mmol/L Chloride 101 (98-107) mmol/L Carbon Dioxide 24 (22-30) mmol/L Anion Gap 14.5 (5-15) MEQ/L BUN 14 (9-20) mg/dL Creatinine 0.51 L (0.66-1.25) mg/dL Estimated GFR > 60.0 ML/MIN Glucose 332 H (74-106) mg/dL POC Glucometer 334 H (74 to 106) mg/dL Hemoglobin A1c (4.5-6.0) % Lactic Acid (0.4-2.0) Calcium 7.9 L (8.4-10.2) mg/dL Total Bilirubin (0.2-1.3) mg/dL AST (17-59) U/L ALT (0-50) U/L Alkaline Phosphatase (38-126) U/L Troponin I < 0.012 (0.000-0.034) ng/mL Serum Total Protein (6.3-8.2) g/dL Albumin (3.5-5.0) g/dL Lipase (23-300) U/L Urine Color (Yellow) Urine Appearance (Clear) Urine pH (4.6-8.0) Ur Specific [place] (1.005-1.030) Urine Protein (Negative) Urine Glucose (UA) (Negative) mg/dL Urine Ketones (Negative) Urine Blood (Negative) Urine Nitrite (Negative) Urine Bilirubin (Negative) Urine Urobilinogen (0.2) mg/dL Ur Leukocyte Esterase (Negative) U Hyaline Cast (Auto) (0-2) /LPF Urine Microscopic RBC (0-5) /HPF Urine Microscopic WBC (0-5) /HPF Ur Epithelial Cells (None Seen) /HPF Urine Bacteria (None Seen) /HPF Urine Yeast (Budding) (None Seen) /HPF Urine Culture Reflexed (NO) Accuchecks Date 10/08/22 Date 10/08/22 Time 14:03 Time 11:20 Assessment/Plan (1) Hyperglycemia Current Visit: Yes Status: Acute Assessment & Plan: ASSESSMENT 1. Hyperosmolar Hyperglycemic Syndrome 2. Hyponatremia 3. Acute Kidney Injury 4. Hypertension 5. Hyperlipidemia 6. Medical Non-Compliance 7. Obesity PLAN 1. Continue ISS to calculate 24 hour requirement 2. Stop fluids; has received 3-4 L of fluids 3. Cr trending down 4. Start ACEI; needs BMP in next 7 days 5. A1c and Lipid panel in AM 6. [facility]; medical compliance and health maintenance counseled Nicolle The entirety of this encounter was done via telemedicine Brayan Lange MD Pulmonary and Critical Care Medicine Code(s): R73.9 - HYPERGLYCEMIA, UNSPECIFIED Telemedicine Encounter - Telemedicine Encounter Telemedicine Encounter: The entirety of this encounter was performed via Telemedicine"
[2022-10-08] MEDS: ENOXAPARIN SODIUM SQ SCH (20:20)
[2022-10-08] MEDS: Zestril 20 MG PO SCH (20:20)
[2022-10-09] MEDS: HUMALOG SQ PRN ×4 (00:01→12:34)
[2022-10-09 04:54] LABS: Absolute Neutrophil Ct (ANC) 3.14 x10^3/uL (1.4-6.9); BASOPHIL % 0.6 % (0.0-0.4); Basophil (Absolute #) 0.04 x10^3/uL (0-0.4); Eosinophil (Absolute #) 0.31 x10^3/uL (0-0.5); Hematocrit 40.8 % (42-50); Hemoglobin 13.8 g/dL (12.5-18.0); IMMATURE GRAN # 0.07 x10^3u/L (0.00-0.03); IMMATURE GRAN % 1.1 % (0.00-0.4); Lymphocyte (Absolute #) 2.06 x10^3/uL (1.0-4.6); Lymphocytes % 33.4 % (24.0-44.0); Mean Cell Volume 81.8 fL (78-100); Mean Corpuscular Hemoglobin 27.7 pg (26-32); Mean Corpuscular Hgb Concent. 33.8 g/dL (32-36); Mean Platelet Volume 10.1 fL (7.5-11.0); Monocyte (Absolute #) 0.54 x10^3/uL (0.0-1.3); Monocytes % 8.8 % (0.0-12.0); Neutrophil % 51.1 % (36.0-66.0); Platelet Count 200 x10^3/uL (150-450); Red Blood Count 4.99 x10^6/uL (4.1-5.6); Red Cell Distribution Width 13.7 % (11.5-14.0); White Blood Count 6.2 x10^3/uL (4.0-10.5)
[2022-10-09 05:08] LABS: ALBUMIN 3.7 g/dL (3.5-5.0); ALKALINE PHOSPHATASE 95 U/L (38-126); ANION GAP 13.5 MEQ/L (5-15); BLOOD UREA NITROGEN 13 mg/dL (9-20); CHLORIDE 99 mmol/L (98-107); Carbon Dioxide 26 mmol/L (22-30); Creatinine 1 0.63 mg/dL (0.66-1.25); EST GLOMERULAR FILTRATION RATE > 60.0 ML/MIN; Glucose 288 mg/dL (74-106); SGOT/AST 56 U/L (17-59); SGPT/ALT 50 U/L (0-50); SODIUM 134 mmol/L (137-145); Total Protein 7.2 g/dL (6.3-8.2)
[2022-10-09 05:28] LABS: TRIGLYCERIDE 1358 mg/dL (30-150)
[2022-10-09 05:31] LABS: Cholesterol 223 mg/dL (50-200); HDL CHOLESTEROL 17 mg/dL (40-60); LDL, DIRECT < 36 mg/dL (30-100); Risk Ratio 13.2
[2022-10-09] MEDS: Zestril 20 MG PO SCH (08:59)
[2022-10-09] MEDS: ENOXAPARIN SODIUM SQ SCH (08:59)
[2022-10-09] MEDS ORDERED: PROTONIX 40 MG IV IV SCH (10:00)
[2022-10-09 11:51] VITALS: BP 166/80; PULSE 75; O2SAT 96
--- NOTE | 2022-10-09 11:54 | PCM.DS ---
Discharge Summary Date of Admission: 10/08/22 13:40 Date of Discharge: 10/09/22 Admitting Physician: LINDA HORNE MD Primary Care Provider: [facility] Allergies Allergies vancomycin Adverse Reaction (Mild, Verified 10/08/22 11:13) Rash Hospital Summary - Hospital Course Hospital Course: Blood sugars improved. Will need to start a long acting insulin with close follow up as an outpatient. Counseled on the importance of not skipping meals while on insulin and to monitor his sugars. The patient also has been started on lisinopril and will need a BMP in a week. Patient has been provided a glucometer. The patient was seen and examined via telemedicine. The entirety of this encounter was performed via telemedicine. The patient consented to this telemedicine encounter. - Vitals & Intake/Output Vital Signs: Vital Signs Temperature 97.7 F 10/09/22 06:49 Pulse Rate 54 L 10/09/22 06:49 Respiratory Rate 17 10/09/22 06:49 Blood Pressure 127/77 10/09/22 06:49 O2 Sat by Pulse Oximetry 98 10/09/22 06:49 Intake & Output: Intake & Output 10/06/22 10/07/22 10/08/22 10/09/22 11:59 11:59 11:59 11:59 Intake Total 3762 Balance 3762 Weight 141.521 kg 139 kg - Lab Result Diagrams: 10/09/22 04:20 10/09/22 04:20 Lab Results-Last 24 Hrs: Lab Results-Last 24 Hours 10/08/22 10/08/22 10/08/22 Range/Units 11:39 11:39 11:39 WBC 7.6 (4.0-10.5) x10^3/uL RBC 5.33 (4.1-5.6) x10^6/uL Hgb 15.1 (12.5-18.0) g/dL Hct 43.7 (42-50) % MCV 82.0 (78-100) fL MCH 28.3 (26-32) pg MCHC 34.6 (32-36) g/dL RDW 13.2 (11.5-14.0) % Plt Count 260 (150-450) x10^3/uL MPV 10.3 (7.5-11.0) fL Gran % 61.0 (36.0-66.0) % Immature Gran % (Auto) 0.9 H (0.00-0.4) % Nucleat RBC Rel Count 0.0 (0.00-0.1) % Eos # (Auto) 0.21 (0-0.5) x10^3/uL Immature Gran # (Auto) 0.07 H (0.00-0.03) x10^3u/L Absolute Lymphs (auto) 1.96 (1.0-4.6) x10^3/uL Absolute Monos (auto) 0.67 (0.0-1.3) x10^3/uL Absolute Nucleated RBC 0.00 (0.00-0.01) x10^3u/L Lymphocytes % 25.8 (24.0-44.0) % Monocytes % 8.8 (0.0-12.0) % Eosinophils % 2.8 (0.00-5.0) % Basophils % 0.7 (0.0-0.4) % Absolute Granulocytes 4.65 (1.4-6.9) x10^3/uL Basophils # 0.05 (0-0.4) x10^3/uL pO2/FiO2 Ratio % VBG pH (7.32-7.42) VBG pCO2 at Pat Temp (42-55) mm/Hg VBG pO2 at Pat Temp (25-40) mm/Hg VBG HCO3 (22-28) meq/L VBG O2 Sat (Renata) (95-100) VBG Base Excess (-2.0-2.0) VBG Hemoglobin VBG Carboxyhemoglobin (0.0-6.9) % T HGB POC Potassium (3.5-5.1) Sodium 128 L (137-145) mmol/L Potassium 4.6 (3.5-5.1) mmol/L Chloride 92 L (98-107) mmol/L Carbon Dioxide 21 L (22-30) mmol/L Anion Gap 19.9 H (5-15) MEQ/L BUN 18 (9-20) mg/dL Creatinine 0.61 L (0.66-1.25) mg/dL Estimated GFR > 60.0 ML/MIN Glucose 751 H* (74-106) mg/dL POC Glucometer (74 to 106) mg/dL Hemoglobin A1c (4.5-6.0) % Lactic Acid (0.4-2.0) Calcium 8.9 (8.4-10.2) mg/dL Total Bilirubin 0.80 (0.2-1.3) mg/dL AST 45 (17-59) U/L ALT 54 H (0-50) U/L Alkaline Phosphatase 139 H (38-126) U/L Troponin I (0.000-0.034) ng/mL Serum Total Protein 8.7 H (6.3-8.2) g/dL Albumin 4.4 (3.5-5.0) g/dL Triglycerides (30-150) mg/dL Cholesterol (50-200) mg/dL LDL Cholesterol (30-100) mg/dL HDL Cholesterol (40-60) mg/dL Heart Disease Risk Ratio Lipase 102 (23-300) U/L Urine Color Yellow (Yellow) Urine Appearance Clear (Clear) Urine pH 6.0 (4.6-8.0) Ur Specific [place] >=1.030 A (1.005-1.030) Urine Protein Negative (Negative) Urine Glucose (UA) >=1000 A (Negative) mg/dL Urine Ketones Negative (Negative) Urine Blood Negative (Negative) Urine Nitrite Negative (Negative) Urine Bilirubin Negative (Negative) Urine Urobilinogen 0.2 (0.2) mg/dL Ur Leukocyte Esterase Negative (Negative) U Hyaline Cast (Auto) NONE SEEN (0-2) /LPF Urine Microscopic RBC 0-2 (0-5) /HPF Urine Microscopic WBC 3-5 (0-5) /HPF Ur Epithelial Cells None Seen (None Seen) /HPF Urine Bacteria None Seen (None Seen) /HPF Urine Yeast (Budding) Few A (None Seen) /HPF Urine Culture Reflexed NO (NO) 10/08/22 10/08/22 10/08/22 Range/Units 11:39 11:48 11:48 WBC (4.0-10.5) x10^3/uL RBC (4.1-5.6) x10^6/uL Hgb (12.5-18.0) g/dL Hct (42-50) % MCV (78-100) fL MCH (26-32) pg MCHC (32-36) g/dL RDW (11.5-14.0) % Plt Count (150-450) x10^3/uL MPV (7.5-11.0) fL Gran % (36.0-66.0) % Immature Gran % (Auto) (0.00-0.4) % Nucleat RBC Rel Count (0.00-0.1) % Eos # (Auto) (0-0.5) x10^3/uL Immature Gran # (Auto) (0.00-0.03) x10^3u/L Absolute Lymphs (auto) (1.0-4.6) x10^3/uL Absolute Monos (auto) (0.0-1.3) x10^3/uL Absolute Nucleated RBC (0.00-0.01) x10^3u/L Lymphocytes % (24.0-44.0) % Monocytes % (0.0-12.0) % Eosinophils % (0.00-5.0) % Basophils % (0.0-0.4) % Absolute Granulocytes (1.4-6.9) x10^3/uL Basophils # (0-0.4) x10^3/uL pO2/FiO2 Ratio 21.0 % VBG pH 7.44 H (7.32-7.42) VBG pCO2 at Pat Temp 37 L (42-55) mm/Hg VBG pO2 at Pat Temp 81 H (25-40) mm/Hg VBG HCO3 25.1 (22-28) meq/L VBG O2 Sat (Renata) 97.5 (95-100) VBG Base Excess 1.2 (-2.0-2.0) VBG Hemoglobin 15.7 VBG Carboxyhemoglobin 2.7 (0.0-6.9) % T HGB POC Potassium 5.0 (3.5-5.1) Sodium (137-145) mmol/L Potassium (3.5-5.1) mmol/L Chloride (98-107) mmol/L Carbon Dioxide (22-30) mmol/L Anion Gap (5-15) MEQ/L BUN (9-20) mg/dL Creatinine (0.66-1.25) mg/dL Estimated GFR ML/MIN Glucose (74-106) mg/dL POC Glucometer (74 to 106) mg/dL Hemoglobin A1c (4.5-6.0) % Lactic Acid 2.6 H (0.4-2.0) Calcium (8.4-10.2) mg/dL Total Bilirubin (0.2-1.3) mg/dL AST (17-59) U/L ALT (0-50) U/L Alkaline Phosphatase (38-126) U/L Troponin I < 0.012 (0.000-0.034) ng/mL Serum Total Protein (6.3-8.2) g/dL Albumin (3.5-5.0) g/dL Triglycerides (30-150) mg/dL Cholesterol (50-200) mg/dL LDL Cholesterol (30-100) mg/dL HDL Cholesterol (40-60) mg/dL Heart Disease Risk Ratio Lipase (23-300) U/L Urine Color (Yellow) Urine Appearance (Clear) Urine pH (4.6-8.0) Ur Specific [place] (1.005-1.030) Urine Protein (Negative) Urine Glucose (UA) (Negative) mg/dL Urine Ketones (Negative) Urine Blood (Negative) Urine Nitrite (Negative) Urine Bilirubin (Negative) Urine Urobilinogen (0.2) mg/dL Ur Leukocyte Esterase (Negative) U Hyaline Cast (Auto) (0-2) /LPF Urine Microscopic RBC (0-5) /HPF Urine Microscopic WBC (0-5) /HPF Ur Epithelial Cells (None Seen) /HPF Urine Bacteria (None Seen) /HPF Urine Yeast (Budding) (None Seen) /HPF Urine Culture Reflexed (NO) 10/08/22 10/08/22 10/08/22 Range/Units 12:55 13:40 13:50 WBC (4.0-10.5) x10^3/uL RBC (4.1-5.6) x10^6/uL Hgb (12.5-18.0) g/dL Hct (42-50) % MCV (78-100) fL MCH (26-32) pg MCHC (32-36) g/dL RDW (11.5-14.0) % Plt Count (150-450) x10^3/uL MPV (7.5-11.0) fL Gran % (36.0-66.0) % Immature Gran % (Auto) (0.00-0.4) % Nucleat RBC Rel Count (0.00-0.1) % Eos # (Auto) (0-0.5) x10^3/uL Immature Gran # (Auto) (0.00-0.03) x10^3u/L Absolute Lymphs (auto) (1.0-4.6) x10^3/uL Absolute Monos (auto) (0.0-1.3) x10^3/uL Absolute Nucleated RBC (0.00-0.01) x10^3u/L Lymphocytes % (24.0-44.0) % Monocytes % (0.0-12.0) % Eosinophils % (0.00-5.0) % Basophils % (0.0-0.4) % Absolute Granulocytes (1.4-6.9) x10^3/uL Basophils # (0-0.4) x10^3/uL pO2/FiO2 Ratio % VBG pH (7.32-7.42) VBG pCO2 at Pat Temp (42-55) mm/Hg VBG pO2 at Pat Temp (25-40) mm/Hg VBG HCO3 (22-28) meq/L VBG O2 Sat (Renata) (95-100) VBG Base Excess (-2.0-2.0) VBG Hemoglobin VBG Carboxyhemoglobin (0.0-6.9) % T HGB POC Potassium (3.5-5.1) Sodium (137-145) mmol/L Potassium (3.5-5.1) mmol/L Chloride (98-107) mmol/L Carbon Dioxide (22-30) mmol/L Anion Gap (5-15) MEQ/L BUN (9-20) mg/dL Creatinine (0.66-1.25) mg/dL Estimated GFR ML/MIN Glucose (74-106) mg/dL POC Glucometer 479 H (74 to 106) mg/dL Hemoglobin A1c 11.84 H (4.5-6.0) % Lactic Acid 1.1 (0.4-2.0) Calcium (8.4-10.2) mg/dL Total Bilirubin (0.2-1.3) mg/dL AST (17-59) U/L ALT (0-50) U/L Alkaline Phosphatase (38-126) U/L Troponin I (0.000-0.034) ng/mL Serum Total Protein (6.3-8.2) g/dL Albumin (3.5-5.0) g/dL Triglycerides (30-150) mg/dL Cholesterol (50-200) mg/dL LDL Cholesterol (30-100) mg/dL HDL Cholesterol (40-60) mg/dL Heart Disease Risk Ratio Lipase (23-300) U/L Urine Color (Yellow) Urine Appearance (Clear) Urine pH (4.6-8.0) Ur Specific [place] (1.005-1.030) Urine Protein (Negative) Urine Glucose (UA) (Negative) mg/dL Urine Ketones (Negative) Urine Blood (Negative) Urine Nitrite (Negative) Urine Bilirubin (Negative) Urine Urobilinogen (0.2) mg/dL Ur Leukocyte Esterase (Negative) U Hyaline Cast (Auto) (0-2) /LPF Urine Microscopic RBC (0-5) /HPF Urine Microscopic WBC (0-5) /HPF Ur Epithelial Cells (None Seen) /HPF Urine Bacteria (None Seen) /HPF Urine Yeast (Budding) (None Seen) /HPF Urine Culture Reflexed (NO) 10/08/22 10/08/22 10/08/22 Range/Units 15:43 15:45 16:00 WBC (4.0-10.5) x10^3/uL RBC (4.1-5.6) x10^6/uL Hgb (12.5-18.0) g/dL Hct (42-50) % MCV (78-100) fL MCH (26-32) pg MCHC (32-36) g/dL RDW (11.5-14.0) % Plt Count (150-450) x10^3/uL MPV (7.5-11.0) fL Gran % (36.0-66.0) % Immature Gran % (Auto) (0.00-0.4) % Nucleat RBC Rel Count (0.00-0.1) % Eos # (Auto) (0-0.5) x10^3/uL Immature Gran # (Auto) (0.00-0.03) x10^3u/L Absolute Lymphs (auto) (1.0-4.6) x10^3/uL Absolute Monos (auto) (0.0-1.3) x10^3/uL Absolute Nucleated RBC (0.00-0.01) x10^3u/L Lymphocytes % (24.0-44.0) % Monocytes % (0.0-12.0) % Eosinophils % (0.00-5.0) % Basophils % (0.0-0.4) % Absolute Granulocytes (1.4-6.9) x10^3/uL Basophils # (0-0.4) x10^3/uL pO2/FiO2 Ratio % VBG pH (7.32-7.42) VBG pCO2 at Pat Temp (42-55) mm/Hg VBG pO2 at Pat Temp (25-40) mm/Hg VBG HCO3 (22-28) meq/L VBG O2 Sat (Renata) (95-100) VBG Base Excess (-2.0-2.0) VBG Hemoglobin VBG Carboxyhemoglobin (0.0-6.9) % T HGB POC Potassium (3.5-5.1) Sodium 135 L D (137-145) mmol/L Potassium 3.7 (3.5-5.1) mmol/L Chloride 101 (98-107) mmol/L Carbon Dioxide 24 (22-30) mmol/L Anion Gap 14.5 (5-15) MEQ/L BUN 14 (9-20) mg/dL Creatinine 0.51 L (0.66-1.25) mg/dL Estimated GFR > 60.0 ML/MIN Glucose 332 H (74-106) mg/dL POC Glucometer 334 H (74 to 106) mg/dL Hemoglobin A1c (4.5-6.0) % Lactic Acid (0.4-2.0) Calcium 7.9 L (8.4-10.2) mg/dL Total Bilirubin (0.2-1.3) mg/dL AST (17-59) U/L ALT (0-50) U/L Alkaline Phosphatase (38-126) U/L Troponin I < 0.012 (0.000-0.034) ng/mL Serum Total Protein (6.3-8.2) g/dL Albumin (3.5-5.0) g/dL Triglycerides (30-150) mg/dL Cholesterol (50-200) mg/dL LDL Cholesterol (30-100) mg/dL HDL Cholesterol (40-60) mg/dL Heart Disease Risk Ratio Lipase (23-300) U/L Urine Color (Yellow) Urine Appearance (Clear) Urine pH (4.6-8.0) Ur Specific [place] (1.005-1.030) Urine Protein (Negative) Urine Glucose (UA) (Negative) mg/dL Urine Ketones (Negative) Urine Blood (Negative) Urine Nitrite (Negative) Urine Bilirubin (Negative) Urine Urobilinogen (0.2) mg/dL Ur Leukocyte Esterase (Negative) U Hyaline Cast (Auto) (0-2) /LPF Urine Microscopic RBC (0-5) /HPF Urine Microscopic WBC (0-5) /HPF Ur Epithelial Cells (None Seen) /HPF Urine Bacteria (None Seen) /HPF Urine Yeast (Budding) (None Seen) /HPF Urine Culture Reflexed (NO) 10/08/22 10/08/22 10/08/22 Range/Units 18:59 19:59 23:48 WBC (4.0-10.5) x10^3/uL RBC (4.1-5.6) x10^6/uL Hgb (12.5-18.0) g/dL Hct (42-50) % MCV (78-100) fL MCH (26-32) pg MCHC (32-36) g/dL RDW (11.5-14.0) % Plt Count (150-450) x10^3/uL MPV (7.5-11.0) fL Gran % (36.0-66.0) % Immature Gran % (Auto) (0.00-0.4) % Nucleat RBC Rel Count (0.00-0.1) % Eos # (Auto) (0-0.5) x10^3/uL Immature Gran # (Auto) (0.00-0.03) x10^3u/L Absolute Lymphs (auto) (1.0-4.6) x10^3/uL Absolute Monos (auto) (0.0-1.3) x10^3/uL Absolute Nucleated RBC (0.00-0.01) x10^3u/L Lymphocytes % (24.0-44.0) % Monocytes % (0.0-12.0) % Eosinophils % (0.00-5.0) % Basophils % (0.0-0.4) % Absolute Granulocytes (1.4-6.9) x10^3/uL Basophils # (0-0.4) x10^3/uL pO2/FiO2 Ratio % VBG pH (7.32-7.42) VBG pCO2 at Pat Temp (42-55) mm/Hg VBG pO2 at Pat Temp (25-40) mm/Hg VBG HCO3 (22-28) meq/L VBG O2 Sat (Renata) (95-100) VBG Base Excess (-2.0-2.0) VBG Hemoglobin VBG Carboxyhemoglobin (0.0-6.9) % T HGB POC Potassium (3.5-5.1) Sodium (137-145) mmol/L Potassium (3.5-5.1) mmol/L Chloride (98-107) mmol/L Carbon Dioxide (22-30) mmol/L Anion Gap (5-15) MEQ/L BUN (9-20) mg/dL Creatinine (0.66-1.25) mg/dL Estimated GFR ML/MIN Glucose (74-106) mg/dL POC Glucometer 298 H 235 H (74 to 106) mg/dL Hemoglobin A1c (4.5-6.0) % Lactic Acid (0.4-2.0) Calcium (8.4-10.2) mg/dL Total Bilirubin (0.2-1.3) mg/dL AST (17-59) U/L ALT (0-50) U/L Alkaline Phosphatase (38-126) U/L Troponin I < 0.012 (0.000-0.034) ng/mL Serum Total Protein (6.3-8.2) g/dL Albumin (3.5-5.0) g/dL Triglycerides (30-150) mg/dL Cholesterol (50-200) mg/dL LDL Cholesterol (30-100) mg/dL HDL Cholesterol (40-60) mg/dL Heart Disease Risk Ratio Lipase (23-300) U/L Urine Color (Yellow) Urine Appearance (Clear) Urine pH (4.6-8.0) Ur Specific [place] (1.005-1.030) Urine Protein (Negative) Urine Glucose (UA) (Negative) mg/dL Urine Ketones (Negative) Urine Blood (Negative) Urine Nitrite (Negative) Urine Bilirubin (Negative) Urine Urobilinogen (0.2) mg/dL Ur Leukocyte Esterase (Negative) U Hyaline Cast (Auto) (0-2) /LPF Urine Microscopic RBC (0-5) /HPF Urine Microscopic WBC (0-5) /HPF Ur Epithelial Cells (None Seen) /HPF Urine Bacteria (None Seen) /HPF Urine Yeast (Budding) (None Seen) /HPF Urine Culture Reflexed (NO) 10/09/22 10/09/22 10/09/22 Range/Units 03:53 04:20 04:20 WBC 6.2 (4.0-10.5) x10^3/uL RBC 4.99 (4.1-5.6) x10^6/uL Hgb 13.8 (12.5-18.0) g/dL Hct 40.8 L (42-50) % MCV 81.8 (78-100) fL MCH 27.7 (26-32) pg MCHC 33.8 (32-36) g/dL RDW 13.7 (11.5-14.0) % Plt Count 200 (150-450) x10^3/uL MPV 10.1 (7.5-11.0) fL Gran % 51.1 (36.0-66.0) % Immature Gran % (Auto) 1.1 H (0.00-0.4) % Nucleat RBC Rel Count 0.0 (0.00-0.1) % Eos # (Auto) 0.31 (0-0.5) x10^3/uL Immature Gran # (Auto) 0.07 H (0.00-0.03) x10^3u/L Absolute Lymphs (auto) 2.06 (1.0-4.6) x10^3/uL Absolute Monos (auto) 0.54 (0.0-1.3) x10^3/uL Absolute Nucleated RBC 0.00 (0.00-0.01) x10^3u/L Lymphocytes % 33.4 (24.0-44.0) % Monocytes % 8.8 (0.0-12.0) % Eosinophils % 5.0 (0.00-5.0) % Basophils % 0.6 (0.0-0.4) % Absolute Granulocytes 3.14 (1.4-6.9) x10^3/uL Basophils # 0.04 (0-0.4) x10^3/uL pO2/FiO2 Ratio % VBG pH (7.32-7.42) VBG pCO2 at Pat Temp (42-55) mm/Hg VBG pO2 at Pat Temp (25-40) mm/Hg VBG HCO3 (22-28) meq/L VBG O2 Sat (Renata) (95-100) VBG Base Excess (-2.0-2.0) VBG Hemoglobin VBG Carboxyhemoglobin (0.0-6.9) % T HGB POC Potassium (3.5-5.1) Sodium 134 L (137-145) mmol/L Potassium 4.0 (3.5-5.1) mmol/L Chloride 99 (98-107) mmol/L Carbon Dioxide 26 (22-30) mmol/L Anion Gap 13.5 (5-15) MEQ/L BUN 13 (9-20) mg/dL Creatinine 0.63 L (0.66-1.25) mg/dL Estimated GFR > 60.0 ML/MIN Glucose 288 H (74-106) mg/dL POC Glucometer 278 H (74 to 106) mg/dL Hemoglobin A1c (4.5-6.0) % Lactic Acid (0.4-2.0) Calcium 8.0 L (8.4-10.2) mg/dL Total Bilirubin 0.60 (0.2-1.3) mg/dL AST 56 (17-59) U/L ALT 50 (0-50) U/L Alkaline Phosphatase 95 (38-126) U/L Troponin I (0.000-0.034) ng/mL Serum Total Protein 7.2 (6.3-8.2) g/dL Albumin 3.7 (3.5-5.0) g/dL Triglycerides (30-150) mg/dL Cholesterol (50-200) mg/dL LDL Cholesterol (30-100) mg/dL HDL Cholesterol (40-60) mg/dL Heart Disease Risk Ratio Lipase (23-300) U/L Urine Color (Yellow) Urine Appearance (Clear) Urine pH (4.6-8.0) Ur Specific [place] (1.005-1.030) Urine Protein (Negative) Urine Glucose (UA) (Negative) mg/dL Urine Ketones (Negative) Urine Blood (Negative) Urine Nitrite (Negative) Urine Bilirubin (Negative) Urine Urobilinogen (0.2) mg/dL Ur Leukocyte Esterase (Negative) U Hyaline Cast (Auto) (0-2) /LPF Urine Microscopic RBC (0-5) /HPF Urine Microscopic WBC (0-5) /HPF Ur Epithelial Cells (None Seen) /HPF Urine Bacteria (None Seen) /HPF Urine Yeast (Budding) (None Seen) /HPF Urine Culture Reflexed (NO) 10/09/22 10/09/22 10/09/22 Range/Units 04:20 06:35 11:35 WBC (4.0-10.5) x10^3/uL RBC (4.1-5.6) x10^6/uL Hgb (12.5-18.0) g/dL Hct (42-50) % MCV (78-100) fL MCH (26-32) pg MCHC (32-36) g/dL RDW (11.5-14.0) % Plt Count (150-450) x10^3/uL MPV (7.5-11.0) fL Gran % (36.0-66.0) % Immature Gran % (Auto) (0.00-0.4) % Nucleat RBC Rel Count (0.00-0.1) % Eos # (Auto) (0-0.5) x10^3/uL Immature Gran # (Auto) (0.00-0.03) x10^3u/L Absolute Lymphs (auto) (1.0-4.6) x10^3/uL Absolute Monos (auto) (0.0-1.3) x10^3/uL Absolute Nucleated RBC (0.00-0.01) x10^3u/L Lymphocytes % (24.0-44.0) % Monocytes % (0.0-12.0) % Eosinophils % (0.00-5.0) % Basophils % (0.0-0.4) % Absolute Granulocytes (1.4-6.9) x10^3/uL Basophils # (0-0.4) x10^3/uL pO2/FiO2 Ratio % VBG pH (7.32-7.42) VBG pCO2 at Pat Temp (42-55) mm/Hg VBG pO2 at Pat Temp (25-40) mm/Hg VBG HCO3 (22-28) meq/L VBG O2 Sat (Renata) (95-100) VBG Base Excess (-2.0-2.0) VBG Hemoglobin VBG Carboxyhemoglobin (0.0-6.9) % T HGB POC Potassium (3.5-5.1) Sodium (137-145) mmol/L Potassium (3.5-5.1) mmol/L Chloride (98-107) mmol/L Carbon Dioxide (22-30) mmol/L Anion Gap (5-15) MEQ/L BUN (9-20) mg/dL Creatinine (0.66-1.25) mg/dL Estimated GFR ML/MIN Glucose (74-106) mg/dL POC Glucometer 288 H 276 H (74 to 106) mg/dL Hemoglobin A1c (4.5-6.0) % Lactic Acid (0.4-2.0) Calcium (8.4-10.2) mg/dL Total Bilirubin (0.2-1.3) mg/dL AST (17-59) U/L ALT (0-50) U/L Alkaline Phosphatase (38-126) U/L Troponin I (0.000-0.034) ng/mL Serum Total Protein (6.3-8.2) g/dL Albumin (3.5-5.0) g/dL Triglycerides 1358 H (30-150) mg/dL Cholesterol 223 H (50-200) mg/dL LDL Cholesterol < 36 (30-100) mg/dL HDL Cholesterol 17 L (40-60) mg/dL Heart Disease Risk Ratio 13.2 Lipase (23-300) U/L Urine Color (Yellow) Urine Appearance (Clear) Urine pH (4.6-8.0) Ur Specific [place] (1.005-1.030) Urine Protein (Negative) Urine Glucose (UA) (Negative) mg/dL Urine Ketones (Negative) Urine Blood (Negative) Urine Nitrite (Negative) Urine Bilirubin (Negative) Urine Urobilinogen (0.2) mg/dL Ur Leukocyte Esterase (Negative) U Hyaline Cast (Auto) (0-2) /LPF Urine Microscopic RBC (0-5) /HPF Urine Microscopic WBC (0-5) /HPF Ur Epithelial Cells (None Seen) /HPF Urine Bacteria (None Seen) /HPF Urine Yeast (Budding) (None Seen) /HPF Urine Culture Reflexed (NO) Micro Results-Entire Visit: Accuchecks Date 10/09/22 Date 10/09/22 Date 10/08/22 Date 10/08/22 Date 10/08/22 Time 06:49 Time 04:00 Time 23:55 Time 20:00 Time 14:03 Discharge Exam General Appearance: no apparent distress, mild distress Neurologic Exam: alert, oriented x 3, cooperative, char conveyor tender II-XII nml as tested, normal mood/affect, nml cerebellar function Eye Exam: PERRL, EOMI, eyes nml inspection Ears, Nose, Throat Exam: normal ENT inspection Neck Exam: normal inspection Respiratory Exam: normal breath sounds, lungs clear Cardiovascular Exam: regular rate/rhythm, normal heart sounds Gastrointestinal/Abdomen Exam: soft, normal bowel sounds Back Exam: normal range of motion Extremity Exam: normal inspection, normal range of motion Skin Exam: normal color Final Diagnosis/Problem List - Final Discharge Diagnosis/Problem (1) New onset type 2 diabetes mellitus Current Visit: Yes Status: Acute Assessment & Plan: Will start lantus Code(s): E11.9 - TYPE 2 DIABETES MELLITUS WITHOUT COMPLICATIONS - Discharge Disposition: Home, Self-Care Condition: Stable Prescriptions: New Insulin Glargine [Lantus Insulin] 30 unit SQ HS 30 Days #10 ml Metformin HCl [Metformin HCl ER] 500 mg PO UD #150 tablet Additional Instructions: CHECK YOUR BLOOD SUGARS THREE TIMES A DAY BEFORE MEALS AND AT BEDTIME Follow up with: ELIZABETH TIPTON,[place] [LOCATION] - 10/14/22 2:00 pm ([facility])
== END 2022-10-09 13:15 | disposition home or self-care (01) ==
LOC: ED 11:06 → MED SURG 13:40
PROVIDERS: ADMIT Internal Medicine Critical Care Medicine; ATTEND Family Medicine
DX: E11.9 Type 2 diabetes mellitus without complications (principal); E11.65 Type 2 diabetes mellitus with hyperglycemia; I10 Essential (primary) hypertension; E78.5 Hyperlipidemia, unspecified; Z91.148 Patient's other noncompliance with medication regimen for other reason; E66.9 Obesity, unspecified; E87.1 Hypo-osmolality and hyponatremia; R35.89 Other polyuria; R63.1 Polydipsia; Z20.828 Contact with and (suspected) exposure to other viral communicable diseases
CPT/HCPCS: 36000; 36415; 80048; 80053; 80061; 81001; 82805; 82947; 83036; 83605; 83690; 83721; 84484; 85025; 93268; 96360; 96365; 96374; 99285; G0378; Q3014; J1650; J1815; J1817; A9270-GY

== ENCOUNTER 2022-11-17 07:20 | Emergency (ER) | payer OTHER ==
[2022-11-17 07:44] VITALS: TEMP 97.1; O2SAT 98
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
[2022-11-17] MEDS ORDERED: TORAdol 30 mg Injection IM ONE (09:45)
[2022-11-17] MEDS ORDERED: TORAdol 30 mg Injection ONE (09:46)
[2022-11-17 10:10] VITALS: BP 162/79; PULSE 72; RESP 18
== END 2022-11-17 10:12 | disposition left against medical advice (07) ==
LOC: ED 07:20
DX: S43.102A Unspecified dislocation of left acromioclavicular joint, initial encounter (principal); V53.5XXA Driver of pick-up truck or van injured in collision with car, pick-up truck or van in traffic accident, initial encounter; M77.8 Other enthesopathies, not elsewhere classified; I10 Essential (primary) hypertension; E10.9 Type 1 diabetes mellitus without complications; Z28.310 Unvaccinated for COVID-19
CPT/HCPCS: 73030; 96372; 99283; J1885

== ENCOUNTER 2023-12-30 13:51 | Emergency (ER) | payer OTHER ==
[2023-12-30 13:59] VITALS: TEMP 99.7
[2023-12-30] MEDS ORDERED: Zofran 4 MG/2 ML VIAL ONE (14:31)
[2023-12-30] MEDS ORDERED: MORPHINE SULFATE 4 MG INJ ONE (14:32)
[2023-12-30] MEDS ORDERED: Sodium Chloride 0.9% 1000 ML 1,000 ML ONE (14:32)
[2023-12-30] MEDS: Sodium Chloride 0.9% 1000 ML 1,000 ML IV STA (14:36)
[2023-12-30] MEDS: Zofran 4 MG/2 ML VIAL IV ONE (14:37)
[2023-12-30] MEDS: MORPHINE SULFATE 4 MG INJ IV ONE (14:39)
[2023-12-30 14:41] LABS: Absolute Neutrophil Ct (ANC) 3.83 x10^3/uL (1.78-5.38); BASOPHIL % 0.7 % (0.2-1.2); Basophil (Absolute #) 0.04 x10^3/uL (0.01-0.08); Eosinophil (Absolute #) 0.16 x10^3/uL (0.04-0.54); Hematocrit 37.9 % (40.1-51.0); IMMATURE GRAN # 0.09 x10^3u/L (0.001-0.031); IMMATURE GRAN % 1.7 % (0.001-0.429); Lymphocyte (Absolute #) 0.73 x10^3/uL (1.32-3.57); Lymphocytes % 13.5 % (21.8-53.1); Mean Cell Volume 82.6 fL (79.0-92.2); Mean Corpuscular Hemoglobin 28.3 pg (25.7-32.2); Mean Corpuscular Hgb Concent. 34.3 g/dL (32.3-36.5); Mean Platelet Volume 10.3 fL (9.4-12.4); Monocyte (Absolute #) 0.57 x10^3/uL (0.30-0.82); Monocytes % 10.5 % (5.3-12.2); Neutrophil % 70.6 % (34.0-67.9); Platelet Count 182 x10^3/uL (163-337); Red Blood Count 4.59 x10^6/uL (4.63-6.08); Red Cell Distribution Width 13.1 % (11.6-14.4); White Blood Count 5.4 x10^3/uL (4.23-9.07)
[2023-12-30 14:56] LABS: ALBUMIN 4.6 g/dL (3.5-5.0); ANION GAP 19.5 MEQ/L (5-15); BILIRUBIN,TOTAL 0.7 mg/dL (0.2-1.3); Calcium 9.6 mg/dL (8.4-10.2); Creatinine 1 0.84 mg/dL (0.66-1.25); EST GLOMERULAR FILTRATION RATE 112.4 ML/MIN; Potassium 4.1 mmol/L (3.5-5.1); Total Protein 8.3 g/dL (6.3-8.2)
[2023-12-30 15:12] LABS: VBG BASE EXCESS 2.5 (-2.0-2.0); VBG HCO3- 26.3 meq/L (22-28); VBG HEMOGLOBIN 13.5; VBG POTASSIUM 4.8 (3.5-5.1); VBG pH 7.46 (7.32-7.42)
[2023-12-30 15:13] LABS: VBG CARBOXYHEMOGLOBIN 8.2 % T HGB (0.0-6.9)
[2023-12-30 15:52] LABS: Appearance Clear (Clear); Bacteria None Seen /HPF (None Seen); Bilirubin Negative (Negative); Blood Trace (Negative); Epithelial Cells None Seen /HPF (None Seen); Glucose, Urine >=1000 mg/dL (Negative); Ketones Negative (Negative); Leukocyte Esterase Small (Negative); Nitrite Negative (Negative); Protein,Urine Dip 100 (Negative); RBC 0-2 /HPF (0-5); Specific Gravity >=1.030 (1.005-1.030); Urobilinogen 0.2 mg/dL (0.2); WBC 51-100 /HPF (0-5)
[2023-12-30 15:53] LABS: ADD URINE CULTURE? YES (NO)
--- NOTE | 2023-12-30 16:48 | XRAY ---
Indication: Lower abdominal pain. Incarceration. Multiple contiguous axial images obtained through the abdomen and pelvis using 80 cc Isovue 370 contrast. Comparison: August 26, 2020 Lung bases demonstrates lingula subsegmental atelectasis/scarring. No infiltrate or effusion. Heart borderline enlarged. New 3 cm wide umbilical ventral hernia defect with herniated omental fat demonstrating minimal stranding suggesting inflammatory process. No other ventral or inguinal hernias. Noncontrasted stomach and bowel loops appear nonobstructed with normal appendix. Mild scattered colonic diverticulosis without diverticulitis. Again 22.5 cm fatty hepatomegaly and 14.7 cm splenomegaly. No free fluid/air. Remaining liver, gallbladder, pancreas, spleen, adrenal glands, kidneys, ureters, bladder, and aorta are unremarkable. No pathologic retroperitoneal lymphadenopathy. Osseous structures intact with minimal/mild degenerative changes throughout thoracolumbar spine. Impression: 1. New moderate-sized fatty periumbilical hernia. Herniated fat demonstrates minimal stranding suggesting inflammatory process. 2. Chronic findings including fatty hepatomegaly, splenomegaly, colonic diverticulosis, and chronic bony findings. 3. Remaining CT abdomen/pelvis with contrast exam is negative.
[2023-12-30] MEDS ORDERED: ROCEPHIN 2 GM/100 ML NACL 2 GM/100 ML IVPB IV ONE (17:40)
[2023-12-30] MEDS: ROCEPHIN 2 GM/100 ML NACL 2 GM/100 ML IVPB IV ONE (17:41)
--- NOTE | 2023-12-30 18:06 | ERPHSYRPT ---
- History of Present Illness Time Seen by Provider: 12/30/23 14:05 Historian: patient Exam Limitations: no limitations Patient Subjective Stated Complaint: pt here for pain to lower abd for 2 days, states it is cramping . feels like has a fever at [facility] e Triage Nursing Assessment: pt alert, walked in holding abd, abd large round has umbilical hernia, moves all ext well Physician History: 43-year-old with a history of hypertension, diabetes mellitus presented in the ER with complaint of lower abdominal pain for the last 2 days with progressive worsening. Patient reports having some cramping sensations, intermittently, no significant aggravating or relieving factors. Moderate to severe intensity. Reports nausea but no vomiting. Does report having loose stool for the last couple of days. Noticed small amount of bright red blood with stool yesterday but not today. Patient was lifting some heavy object lately and noticed a bump in the periumbilical area/hernia. Subjective feeling of fever and chills. Den ies any urinary complaints. Allergies/Adverse Reactions: vancomycin Adverse Reaction (Mild, Verified 12/30/23 13:59) Rash Hx Tetanus, Diphtheria Vaccination/Date Given: Yes Hx Influenza Vaccination/Date Given: No Hx Pneumococcal Vaccination/Date Given: No Immunizations Up to Date: Yes Travel Risk - International Travel Have you traveled outside of the country in past 3 weeks: No - Emerging Infectious Disease Are you exhibiting symptoms associated with any current EIDs: No - Review of Systems Constitutional: Fever, Chills Eyes: No Symptoms Ears, Nose, & Throat: No Symptoms Respiratory: No Symptoms Cardiac: No Symptoms Abdominal/Gastrointestinal: Abdominal Pain, Nausea, Diarrhea Genitourinary Symptoms: No Symptoms Musculoskeletal: No Symptoms Skin: No Symptoms Neurological: No Symptoms Endocrine: No Symptoms Hematologic/Lymphatic: No Symptoms - Past Medical History Pertinent Past Medical History: No Neurological History: No Pertinent History ENT History: No Pertinent History Cardiac History: Hypertension Respiratory History: Sleep Apnea Endocrine Medical History: Diabetes Type II Musculoskeletal History: No Pertinent History GI Medical History: Other History: No Pertinent History Psycho-Social History: No Pertinent History Male Reproductive Disorders: No Pertinent History Other Medical History: ileus - Past Surgical History Past Surgical History: Yes Neuro Surgical History: No Pertinent History Cardiac: No Pertinent History Respiratory: No Pertinent History Gastrointestinal: No Pertinent History Genitourinary: No Pertinent History Musculoskeletal: Other Male Surgical History: No Pertinent History Other Surgical History: skin graft, surgery R big toe - Social History Smoking Status: Former smoker Exposure to second hand smoke: No Drug Use: none Patient Lives Alone: Yes - Social Determinants of Health Do you worry about a steady place to live?: No Do you have any problems with any of the following?: No known problems In the past 12 months,have you had to go without utilities?: No Transportation Issues: No Has anyone in your support network made you feel unsafe?: No Have you or anyone in your house had to go without enough: No - Nursing Vital Signs Nursing Vital Signs: Initial Vital Signs Temperature 99.7 F 12/30/23 13:58 Pulse Rate 108 H 12/30/23 13:58 Respiratory Rate 18 12/30/23 13:58 Blood Pressure 115/89 12/30/23 13:58 O2 Sat by Pulse Oximetry 98 12/30/23 13:58 Pain Scale Pain Intensity 2 - Physical Exam General Appearance: no apparent distress, alert Eye Exam: PERRL/EOMI Ears, Nose, Throat Exam: normal ENT inspection Neck Exam: normal inspection, full range of motion Respiratory Exam: normal breath sounds, lungs clear Cardiovascular Exam: regular rate/rhythm, normal heart sounds Gastrointestinal/Abdomen Exam: soft, normal bowel sounds, tenderness (Lower abdomen. Periumbilical hernia reducible.) Back Exam: normal inspection, normal range of motion Extremity Exam: normal inspection, normal range of motion Neurologic Exam: alert, oriented x 3, cooperative Skin Exam: normal color SpO2 Interpretation: normal SpO2: 95 O2 Delivery: Room Air Ordered Tests: Active Orders 24 hr Category Date Time Status IV Insertion STAT Care 12/30/23 14:20 Completed NPO (ED) STAT Care 12/30/23 14:20 Completed ABDOMEN AND PELVIS W CONTRAST [CT] Stat Exams 12/30/23 14:20 Completed CBC W DIFF Stat Lab 12/30/23 14:30 Completed CMP Stat Lab 12/30/23 14:30 Completed CULTURE,URINE Stat Lab 12/30/23 15:40 Received LIPASE Stat Lab 12/30/23 14:30 Completed Lactic Acid Stat Lab 12/30/23 14:30 Completed Lactic Acid Stat Lab 12/30/23 16:34 Completed UA W/RFX UR CULTURE Stat Lab 12/30/23 15:40 Completed VENOUS BLOOD GAS Stat Lab 12/30/23 15:10 Completed Medication Summary Discontinued Medications Generic Name Dose Route Start Last Admin Trade Name Cullen PRN Reason Stop Dose Admin Sodium Chloride 1,000 mls @ 999 mls/hr 12/30/23 14:20 12/30/23 14:36 Sodium Chloride 0.9% 1000 Ml IV 12/30/23 15:20 999 mls/hr .Q1H1M STA Administration Sodium Chloride Confirm 12/30/23 14:32 Sodium Chloride 0.9% 1000 Ml Administered 12/30/23 14:33 Dose 1,000 mls @ ud .ROUTE .STK-MED ONE Ceftriaxone Sodium 2 gm in 100 mls @ 200 mls/hr 12/30/23 17:29 12/30/23 17:41 Rocephin 2 Gm/100 Ml Nacl IV 12/30/23 17:58 200 ml/hr STAT ONE 200 mls/hr Administration Ceftriaxone Sodium Confirm 12/30/23 17:40 Rocephin 2 Gm/100 Ml Nacl Administered 12/30/23 17:41 Dose 2 gm in 100 mls @ ud IV .STK-MED ONE Morphine Sulfate 4 mg 12/30/23 14:20 12/30/23 14:39 Morphine Sulfate 4 Mg/Ml Injection IV 12/30/23 14:21 4 mg STAT ONE Administration Morphine Sulfate Confirm 12/30/23 14:32 Morphine Sulfate 4 Mg/Ml Injection Administered 12/30/23 14:33 Dose 4 mg .ROUTE .STK-MED ONE Ondansetron HCl 4 mg 12/30/23 14:20 12/30/23 14:37 Ondansetron Hcl 4 Mg/2 Ml Vial IV 12/30/23 14:21 4 mg STAT ONE Administration Ondansetron HCl Confirm 12/30/23 14:31 Ondansetron Hcl 4 Mg/2 Ml Vial Administered 12/30/23 14:32 Dose 4 mg .ROUTE .STK-MED ONE Lab/Rad Data: Laboratory Result Diagrams 12/30/23 14:30 12/30/23 14:30 Laboratory Results 12/30/23 12/30/23 12/30/23 Range/Units 16:34 15:40 15:10 WBC (4.23-9.07) x10^3/uL RBC (4.63-6.08) x10^6/uL Hgb (13.7-17.5) g/dL Hct (40.1-51.0) % MCV (79.0-92.2) fL MCH (25.7-32.2) pg MCHC (32.3-36.5) g/dL RDW (11.6-14.4) % Plt Count (163-337) x10^3/uL MPV (9.4-12.4) fL Gran % (34.0-67.9) % Immature Gran % (Auto) (0.001-0.429) % Nucleat RBC Rel Count (0.00-0.2) % Eos # (Auto) (0.04-0.54) x10^3/uL Immature Gran # (Auto) (0.001-0.031) x10^3u/L Absolute Lymphs (auto) (1.32-3.57) x10^3/uL Absolute Monos (auto) (0.30-0.82) x10^3/uL Absolute Nucleated RBC (0.00-0.012) x10^3u/L Lymphocytes % (21.8-53.1) % Monocytes % (5.3-12.2) % Eosinophils % (0.8-7.0) % Basophils % (0.2-1.2) % Absolute Granulocytes (1.78-5.38) x10^3/uL Basophils # (0.01-0.08) x10^3/uL pO2/FiO2 Ratio 21.0 % VBG pH 7.46 H (7.32-7.42) VBG pCO2 at Pat Temp 37 L (42-55) mm/Hg VBG pO2 at Pat Temp 48 H (25-40) mm/Hg VBG HCO3 26.3 (22-28) meq/L VBG O2 Sat (Renata) 85.0 L (95-100) VBG Base Excess 2.5 H (-2.0-2.0) VBG Hemoglobin 13.5 VBG Carboxyhemoglobin 8.2 H* (0.0-6.9) % T HGB POC Potassium 4.8 (3.5-5.1) Sodium (135-145) mmol/L Potassium (3.5-5.1) mmol/L Chloride (98-107) mmol/L Carbon Dioxide (22-30) mmol/L Anion Gap (5-15) MEQ/L BUN (9-20) mg/dL Creatinine (0.66-1.25) mg/dL Estimated GFR ML/MIN Glucose (74-106) mg/dL Lactic Acid 1.7 (0.4-2.0) Calcium (8.4-10.2) mg/dL Total Bilirubin (0.2-1.3) mg/dL AST (17-59) U/L ALT (0-50) U/L Alkaline Phosphatase (38-126) U/L Serum Total Protein (6.3-8.2) g/dL Albumin (3.5-5.0) g/dL Lipase (23-300) U/L Urine Color Yellow (Yellow) Urine Appearance Clear (Clear) Urine pH 5.0 (4.6-8.0) Ur Specific [place] >=1.030 A (1.005-1.030) Urine Protein 100 A (Negative) Urine Glucose (UA) >=1000 A (Negative) mg/dL Urine Ketones Negative (Negative) Urine Blood Trace (Negative) Urine Nitrite Negative (Negative) Urine Bilirubin Negative (Negative) Urine Urobilinogen 0.2 (0.2) mg/dL Ur Leukocyte Esterase Small A (Negative) U Hyaline Cast (Auto) 3-5 A (0-2) /LPF Urine Microscopic RBC 0-2 (0-5) /HPF Urine Microscopic WBC 51-100 A (0-5) /HPF Ur Epithelial Cells None Seen (None Seen) /HPF Urine Bacteria None Seen (None Seen) /HPF Urine Culture Reflexed YES (NO) 12/30/23 12/30/23 12/30/23 Range/Units 14:30 14:30 14:30 WBC 5.4 (4.23-9.07) x10^3/uL RBC 4.59 L (4.63-6.08) x10^6/uL Hgb 13.0 L (13.7-17.5) g/dL Hct 37.9 L (40.1-51.0) % MCV 82.6 (79.0-92.2) fL MCH 28.3 (25.7-32.2) pg MCHC 34.3 (32.3-36.5) g/dL RDW 13.1 (11.6-14.4) % Plt Count 182 (163-337) x10^3/uL MPV 10.3 (9.4-12.4) fL Gran % 70.6 H (34.0-67.9) % Immature Gran % (Auto) 1.7 H (0.001-0.429) % Nucleat RBC Rel Count 0.0 (0.00-0.2) % Eos # (Auto) 0.16 (0.04-0.54) x10^3/uL Immature Gran # (Auto) 0.09 H (0.001-0.031) x10^3u/L Absolute Lymphs (auto) 0.73 L (1.32-3.57) x10^3/uL Absolute Monos (auto) 0.57 (0.30-0.82) x10^3/uL Absolute Nucleated RBC 0.00 (0.00-0.012) x10^3u/L Lymphocytes % 13.5 L (21.8-53.1) % Monocytes % 10.5 (5.3-12.2) % Eosinophils % 3.0 (0.8-7.0) % Basophils % 0.7 (0.2-1.2) % Absolute Granulocytes 3.83 (1.78-5.38) x10^3/uL Basophils # 0.04 (0.01-0.08) x10^3/uL pO2/FiO2 Ratio % VBG pH (7.32-7.42) VBG pCO2 at Pat Temp (42-55) mm/Hg VBG pO2 at Pat Temp (25-40) mm/Hg VBG HCO3 (22-28) meq/L VBG O2 Sat (Renata) (95-100) VBG Base Excess (-2.0-2.0) VBG Hemoglobin VBG Carboxyhemoglobin (0.0-6.9) % T HGB POC Potassium (3.5-5.1) Sodium 137 (135-145) mmol/L Potassium 4.1 (3.5-5.1) mmol/L Chloride 101 (98-107) mmol/L Carbon Dioxide 21 L (22-30) mmol/L Anion Gap 19.5 H (5-15) MEQ/L BUN 17 (9-20) mg/dL Creatinine 0.84 (0.66-1.25) mg/dL Estimated GFR 112.4 ML/MIN Glucose 252 H (74-106) mg/dL Lactic Acid 2.5 H (0.4-2.0) Calcium 9.6 (8.4-10.2) mg/dL Total Bilirubin 0.70 (0.2-1.3) mg/dL AST 136 H (17-59) U/L ALT 74 H (0-50) U/L Alkaline Phosphatase 86 (38-126) U/L Serum Total Protein 8.3 H (6.3-8.2) g/dL Albumin 4.6 (3.5-5.0) g/dL Lipase 111 (23-300) U/L Urine Color (Yellow) Urine Appearance (Clear) Urine pH (4.6-8.0) Ur Specific [place] (1.005-1.030) Urine Protein (Negative) Urine Glucose (UA) (Negative) mg/dL Urine Ketones (Negative) Urine Blood (Negative) Urine Nitrite (Negative) Urine Bilirubin (Negative) Urine Urobilinogen (0.2) mg/dL Ur Leukocyte Esterase (Negative) U Hyaline Cast (Auto) (0-2) /LPF Urine Microscopic RBC (0-5) /HPF Urine Microscopic WBC (0-5) /HPF Ur Epithelial Cells (None Seen) /HPF Urine Bacteria (None Seen) /HPF Urine Culture Reflexed (NO) - Progress Progress: improved Progress Note: 12/30/23 18:00 43-year-old is evaluated in the ER for lower abdominal pain with nausea and diarrhea. Patient does have periumbilical hernia which is reducible. Patient is afebrile. He is given fluids and symptomatic treatment. Workup showed normal white count, chemistries with a gap of 19.5 with a normal potassium and pH of 7.4, negative ketones in the urine. Normal renal functions. Glucose in 200s. I have obtained CT abdomen pelvis with contrast which showed fat- containing periumbilical hernia with minimal stranding but no obstruction or any other acute intra-abdominal pelvic findings. [facility]. I believe patient has possibly viral colitis. Patient does have UTI and given dose of Rocephin. Recommended taking Tylenol ibuprofen as needed and outpatient follow-up. Discussed signs symptoms of worsening needing return to ER which he seems understanding. Stable for discharge. Counseled pt/family regarding: lab results, diagnosis, need for follow-up, rad results Medical Desision Making - Diagnostic Testing Diagnostic test were ordered, analyzed, and reviewed by me: Yes Radiological Interpretation: Reviewed by me - Risk of complications The pt has a mod risk of morbidity or mortality based on: Need for prescription drug management - Departure Departure Disposition: Home Clinical Impression: Acute UTI, Colitis, Periumbilical hernia Condition: Stable Critical Care Time: No Referrals: HOSPITAL,'S [Primary Care Provider] - Follow up/PCP as directed Instructions: Severe Abdominal Pain, Adult (DC) Additional Instructions: Drink plenty of fluids to keep yourself well-hydrated. Monitor your glucose regularly, keep a log and follow-up with PCP for reevaluation. Return to ER for intractable pain/vomiting/diarrhea or if develop fever chills etc. Prescriptions: Ibuprofen 600 mg PO Q6HPRN PRN 10 Days #20 tablet PRN Reason: Pain Cefpodoxime Proxetil 200 mg [Vantin 200 mg] 200 mg PO BID 7 Days #14 tablet
[2023-12-30 18:22] VITALS: BP 164/111; PULSE 100; RESP 18
[2023-12-31 00:01] VITALS: O2SAT 95
== END 2023-12-30 18:22 | disposition home or self-care (01) ==
LOC: ED 13:51
DX: N39.0 Urinary tract infection, site not specified (principal); K52.9 Noninfective gastroenteritis and colitis, unspecified; K42.9 Umbilical hernia without obstruction or gangrene; R10.30 Lower abdominal pain, unspecified; R11.0 Nausea; I10 Essential (primary) hypertension; E11.9 Type 2 diabetes mellitus without complications
CPT/HCPCS: 36000; 36415; 74177; 80053; 81001; 82805; 83605; 83690; 85025; 87086; 96365; 96374; 96375; 99284; J0696; J2270; J2405

== ENCOUNTER 2025-03-12 06:26 | Emergency (ER) | payer OTHER ==
--- NOTE | 2025-03-12 06:45 | ERPHSYRPT ---
- History of Present Illness Source: patient Exam Limitations: no limitations Timing/Duration: today Quality: burning, painful Severity: moderate Location: other (Umbilical area.) Possible Causes: other (Patient states he had his longtime hernia and scraped it yesterday.) Associated Symptoms: denies symptoms Hx Tetanus, Diphtheria Vaccination/Date Given: Yes Hx Influenza Vaccination/Date Given: No Hx Pneumococcal Vaccination/Date Given: No <JOVANA EWING - Last Filed: 03/12/25 07:24> <RADHA FRANCO - Last Filed: 03/12/25 13:20> - History of Present Illness Physician History: 44-year-old male presents to the ED secondary to red swollen erythematous and painful large umbilical hernia. Patient states been there for years. However, he said he scraped it yesterday and woke up this morning noticed a very red and painful. Denies fever aches or chills. Denies nausea vomiting diarrhea. (JOVANA EWING) Allergies/Adverse Reactions: vancomycin Adverse Reaction (Mild, Verified 03/12/25 06:56) Rash Home Medications: Insulin Glargine [Lantus Insulin] 45 unit SQ HS 03/12/25 [History] Metformin HCl [Metformin HCl ER] 2,000 mg PO UD 03/12/25 [History] Travel Risk - Emerging Infectious Disease Are you exhibiting symptoms associated with any current EIDs: No <JOVANA EWING - Last Filed: 03/12/25 07:24> - Review of Systems Constitutional: No Fever, No Chills Eyes: No Symptoms Ears, Nose, & Throat: No Symptoms Respiratory: No Cough, No Dyspnea Cardiac: No Chest Pain, No Edema, No Syncope Abdominal/Gastrointestinal: Other (Large swollen erythematous umbilical hernia that started yesterday per patient), No Abdominal Pain, No Nausea, No Vomiting, No Diarrhea Genitourinary Symptoms: No Dysuria Musculoskeletal: No Back Pain, No Neck Pain Skin: Other (Red swollen umbilical hernia) Neurological: No Dizziness, No Focal Weakness, No Sensory Changes Psychological: No Symptoms Endocrine: No Symptoms <JOVANA EWING - Last Filed: 03/12/25 07:24> - Past Medical History Neurological History: No Pertinent History Cardiac History: High Cholesterol, Hypertension Respiratory History: Sleep Apnea Endocrine Medical History: Diabetes Type II Musculoskeletal History: Osteoarthritis Other Medical History: PSH: TOE SURGERY IN HS (2 BONE AND SKIN GRAFTS). PMH: L SHOULDER SEPARTED AC JOINT - Past Surgical History Past Surgical History: Yes Neuro Surgical History: No Pertinent History Cardiac: No Pertinent History Respiratory: No Pertinent History Gastrointestinal: No Pertinent History Genitourinary: No Pertinent History Musculoskeletal: Other Male Surgical History: No Pertinent History Other Surgical History: skin graft, surgery R big toe - Social History Smoking Status: Former smoker Exposure to second hand smoke: No Drug Use: none Patient Lives Alone: Yes - Social Determinants of Health Do you worry about a steady place to live?: No In the past 12 months,have you had to go without utilities?: No Transportation Issues: No Has anyone in your support network made you feel unsafe?: No Have you or anyone in your house had to go w/o enough food: No <JOVANA EWING - Last Filed: 03/12/25 07:24> - Physical Exam General Appearance: no apparent distress, alert Ears, Nose, Throat Exam: normal ENT inspection, pharynx normal, moist mucous membranes Respiratory Exam: normal breath sounds, lungs clear, No respiratory distress Cardiovascular Exam: regular rate/rhythm, normal heart sounds Gastrointestinal/Abdomen Exam: soft, normal bowel sounds, mass (Large umbilical hernia approximately 5 cm in diameter.), other (Erythematous swollen tender large 5 cm umbilical hernia.) Back Exam: normal inspection, normal range of motion, No CVA tenderness, No vertebral tenderness Extremity Exam: normal inspection, normal range of motion Neurologic Exam: alert, oriented x 3, cooperative, normal mood/affect, sensation nml, No motor deficits Skin Exam: normal color, warm, dry SpO2 Interpretation: normal <JOVANA EWING - Last Filed: 03/12/25 07:24> - Nursing Vital Signs Nursing Vital Signs: Initial Vital Signs Temperature 98.8 F 03/12/25 06:45 Pulse Rate 97 H 03/12/25 06:45 Respiratory Rate 18 03/12/25 06:45 Blood Pressure 146/69 03/12/25 06:45 O2 Sat by Pulse Oximetry 97 03/12/25 06:45 Pain Scale Pain Intensity 0 Ordered Tests: Active Orders 24 hr Category Date Time Status IV Insertion STAT Care 03/12/25 06:45 Active ABDOMEN AND PELVIS W CONTRAST [CT] Stat Exams 03/12/25 07:42 Completed BLOOD CULTURE Stat Lab 03/12/25 07:05 Received BMP Stat Lab 03/12/25 06:50 Completed CBC W DIFF Stat Lab 03/12/25 06:50 Completed CULTURE,WOUND Stat Lab 03/12/25 08:58 Received Medication Summary Discontinued Medications Generic Name Dose Route Start Last Admin Trade Name Cullen PRN Reason Stop Dose Admin Cefazolin Sodium Confirm 03/12/25 08:30 Cefazolin Sodium 2 Gm Vial Administered 03/12/25 08:31 Dose 2 gm .ROUTE .STK-MED ONE Cefazolin Sodium 2 gm/ Sodium 100 mls @ 200 mls/hr 03/12/25 06:47 03/12/25 10:31 Chloride IV 03/12/25 07:16 Infused STAT STA Infusion Potassium Chloride/Dextrose/Sod Cl 1,000 mls @ 100 mls/hr 03/12/25 08:00 Dextrose 5% -Nacl 0.9% 1000 Ml + Kcl 20 Meq IV 04/11/25 07:59 .Q10H TERRY Sodium Chloride Confirm 03/12/25 08:30 Sodium Chloride 0.9% Administered 03/12/25 08:31 Dose 100 mls @ ud .ROUTE .[employer] ONE Lab/Rad Data: Laboratory Result Diagrams 03/12/25 06:50 03/12/25 06:50 Laboratory Results 03/12/25 03/12/25 Range/Units 06:50 06:50 WBC 9.4 H (4.23-9.07) x10^3/uL RBC 4.47 L (4.63-6.08) x10^6/uL Hgb 12.3 L (13.7-17.5) g/dL Hct 37.3 L (40.1-51.0) % MCV 83.4 (79.0-92.2) fL MCH 27.5 (25.7-32.2) pg MCHC 33.0 (32.3-36.5) g/dL RDW 13.4 (11.6-14.4) % Plt Count 217 (163-337) x10^3/uL MPV 10.1 (9.4-12.4) fL Gran % 76.5 H (34.0-67.9) % Immature Gran % (Auto) 0.5 H (0.001-0.429) % Nucleat RBC Rel Count 0.0 (0.00-0.2) % Eos # (Auto) 0.16 (0.04-0.54) x10^3/uL Immature Gran # (Auto) 0.05 H (0.001-0.031) x10^3u/L Absolute Lymphs (auto) 1.10 L (1.32-3.57) x10^3/uL Absolute Monos (auto) 0.88 H (0.30-0.82) x10^3/uL Absolute Nucleated RBC 0.00 (0.00-0.012) x10^3u/L Lymphocytes % 11.7 L (21.8-53.1) % Monocytes % 9.3 (5.3-12.2) % Eosinophils % 1.7 (0.8-7.0) % Basophils % 0.3 (0.2-1.2) % Absolute Granulocytes 7.21 H (1.78-5.38) x10^3/uL Basophils # 0.03 (0.01-0.08) x10^3/uL Sodium 139 (135-145) mmol/L Potassium 4.4 (3.5-5.1) mmol/L Chloride 106 (98-107) mmol/L Carbon Dioxide 23 (22-30) mmol/L Anion Gap 15.0 (5-15) MEQ/L BUN 18 (9-20) mg/dL Creatinine 0.92 (0.66-1.25) mg/dL Estimated GFR 106.5 ML/MIN Glucose 153 H (74-106) mg/dL Calcium 9.2 (8.4-10.2) mg/dL <JOVANA EWING - Last Filed: 03/12/25 07:24> <RADHA FRANCO - Last Filed: 03/12/25 13:20> - Progress Progress Note: 03/12/25 07:[address] Ramesh a.m. ED physician, pending CT scan, diagnostics and results in stable condition. (JOVANA EWING) 03/12/25 09:15 Multiple contiguous axial images obtained through the abdomen and pelvis using 80 cc Isovue 370 contrast as ordered. Comparison: December 30, 2023 Lung bases clear. Heart remains borderline enlarged. Again moderate-sized fatty umbilical hernia at least 8.1 x 6.7 x 7.7 cm with new fatty induration favoring underlying inflammatory/infectious process. This further extends to involve the periumbilical cutaneous/subcutaneous tissues but no focal walled-off fluid collection or soft tissue emphysema. Noncontrasted stomach and bowel loops nonobstructed. Again minimal scattered colonic diverticulosis, nonobstructing left renal punctate calculus, fatty liver, and 14 cm splenomegaly. No free fluid/air. Remaining liver, gallbladder, pancreas, spleen, adrenal glands, kidneys, ureters, bladder, and aorta are unremarkable. No pathologic retroperitoneal lymphadenopathy. Osseous structures intact again with mild degenerative changes throughout spine. Impression: 1. Again moderate-sized fatty umbilical hernia with new CT features favoring cellulitis. Additional cellulitis periumbilical soft tissues without focal walled-off fluid collection/abscess. 2. Again chronic findings including colonic diverticulosis, fatty liver, splenomegaly, nonobstructing left renal punctate calculus, and multilevel degenerative spondylosis. CT shows moderate-sized fatty umbilical hernia with some cellulitis no focal walled off fluid collection or abscess noted patient has chronic colonic diverticulosis fatty liver splenomegaly nonobstructing left renal calculus and multilevel degenerative spondylolysis patient will need to be on antibiotics for benefit on oral Keflex 500 mg 4 times a day for 7 days advised patient to follow-up with surgery to have the umbilical hernia repaired patient states he has an appointment on Wednesday with the SD we have discussed with our surgery 03/12/25 13:[address] Isbell recommends discharge and follow-up in the outpatient setting (RADHA FRANCO) <JOVANA EWING - Last Filed: 03/12/25 07:24> - Departure Departure Disposition: Home Critical Care Time: No <RADHA FRANCO - Last Filed: 03/12/25 13:20> - Departure Clinical Impression: Abdominal wall cellulitis Umbilical hernia Qualifiers: Obstruction and gangrene presence: without obstruction or gangrene Qualified Code(s): K42.9 - Umbilical hernia without obstruction or gangrene Condition: Stable Referrals: HOSPITAL,'[facility] [Primary Care Provider, UNKNOWN] - Follow up/PCP as directed ANA M ISBELL MD [ACTIVE STAFF, GENERAL SURGERY] - Follow up/PCP as directed Instructions: Abdominal pain, Abdominal wall hernias, Cellulitis (skin infection) in adults - Discharge instructions, Caring for an open wound, Cellulitis (skin infection) in adults - ED discharge instructions Additional Instructions: Be sure to follow-up with surgery be sure to take the antibiotics and to use the topical ointment as well as the oral antibiotics do not smoke ensure adequate diet for wound healing and return for any new or worsening symptoms Prescriptions: Mupirocin [Bactroban OINTMENT] 1 inch TP TID 10 Days #1 unit Cephalexin Mh 500 mg [Keflex 500 mg] 500 mg PO Q6H 7 Days #28 cap
[2025-03-12 06:56] VITALS: TEMP 98.8
[2025-03-12 07:13] LABS: BASOPHIL % 0.3 % (0.2-1.2); Basophil (Absolute #) 0.03 x10^3/uL (0.01-0.08); Eosinophil (Absolute #) 0.16 x10^3/uL (0.04-0.54); Hematocrit 37.3 % (40.1-51.0); Hemoglobin 12.3 g/dL (13.7-17.5); IMMATURE GRAN # 0.05 x10^3u/L (0.001-0.031); IMMATURE GRAN % 0.5 % (0.001-0.429); Lymphocyte (Absolute #) 1.10 x10^3/uL (1.32-3.57); Mean Corpuscular Hemoglobin 27.5 pg (25.7-32.2); Mean Corpuscular Hgb Concent. 33.0 g/dL (32.3-36.5); Monocyte (Absolute #) 0.88 x10^3/uL (0.30-0.82); NUCLEATED RBC # 0.00 x10^3u/L (0.00-0.012); NUCLEATED RBC % 0.0 % (0.00-0.2); Platelet Count 217 x10^3/uL (163-337); Red Blood Count 4.47 x10^6/uL (4.63-6.08); White Blood Count 9.4 x10^3/uL (4.23-9.07)
[2025-03-12 07:23] LABS: Calcium 9.2 mg/dL (8.4-10.2); Carbon Dioxide 23.0 mmol/L (22-30); Creatinine 1 0.92 mg/dL (0.66-1.25); EST GLOMERULAR FILTRATION RATE 106.5 ML/MIN; Glucose 153.0 mg/dL (74-106); Potassium 4.4 mmol/L (3.5-5.1)
[2025-03-12] MEDS ORDERED: DEXTROSE 5% -NACL 0.9% 1000 ML + KCl 20 MEQ 1,000 ML IV SCH (08:00)
[2025-03-12] MEDS ORDERED: CEFAZOLIN SODIUM ONE (08:30)
--- NOTE | 2025-03-12 08:57 | XRAY ---
Indication: Erythema and swollen umbilical hernia. Multiple contiguous axial images obtained through the abdomen and pelvis using 80 cc Isovue 370 contrast as ordered. Comparison: December 30, 2023 Lung bases clear. Heart remains borderline enlarged. Again moderate-sized fatty umbilical hernia at least 8.1 x 6.7 x 7.7 cm with new fatty induration favoring underlying inflammatory/infectious process. This further extends to involve the periumbilical cutaneous/subcutaneous tissues but no focal walled-off fluid collection or soft tissue emphysema. Noncontrasted stomach and bowel loops nonobstructed. Again minimal scattered colonic diverticulosis, nonobstructing left renal punctate calculus, fatty liver, and 14 cm splenomegaly. No free fluid/air. Remaining liver, gallbladder, pancreas, spleen, adrenal glands, kidneys, ureters, bladder, and aorta are unremarkable. No pathologic retroperitoneal lymphadenopathy. Osseous structures intact again with mild degenerative changes throughout spine. Impression: 1. Again moderate-sized fatty umbilical hernia with new CT features favoring cellulitis. Additional cellulitis periumbilical soft tissues without focal walled-off fluid collection/abscess. 2. Again chronic findings including colonic diverticulosis, fatty liver, splenomegaly, nonobstructing left renal punctate calculus, and multilevel degenerative spondylosis.
[2025-03-12 13:21] VITALS: BP 127/77; PULSE 78; RESP 16; O2SAT 96
== END 2025-03-12 13:39 | disposition home or self-care (01) ==
LOC: ED 06:26
DX: K42.9 Umbilical hernia without obstruction or gangrene (principal); L03.311 Cellulitis of abdominal wall; I10 Essential (primary) hypertension; E11.9 Type 2 diabetes mellitus without complications; Z79.4 Long term (current) use of insulin; Z79.84 Long term (current) use of oral hypoglycemic drugs; Z79.899 Other long term (current) drug therapy